=== PATIENT | male | born 1960 | race Hispanic/Latino ===

== ENCOUNTER 2017-12-13 12:53 | Inpatient (IN) | payer MEDICARE, OTHER ==
[2017-12-13 13:38] LABS: #Eosinphils 0.1 thou/uL (0.0-0.7); #Lymphocytes 1.1 thou/uL (1.20-3.40); #Monocytes 0.6 thou/uL (0.11-0.59); #Neutrophils 9.9 thou/uL (1.40-6.50); %Eosinophils 0.5 % (0.0-10.0); %Lymphocytes 9.7 % (21.0-51.0); %Monocytes 5.1 % (0.0-10.0); %Neutrophils 84.8 % (42.0-75.0); Hemoglobin 11.9 g/dL (14.0-18.0); Mean Corpuscular HGB CONC 30.7 g/dL (32.0-36.0); Mean Corpuscular Hemoglobin 20.7 pg (27.0-31.0); Mean Corpuscular Volume 67.3 fL (78.0-98.0); Mean Platelet Volume 7.8 fL (7.4-10.4); Platelet Count 490 thou/uL (130-400); RBC Distribution Width 15.8 % (11.5-14.5); Red Blood Cell (RBC) Count 5.78 mill/uL (4.70-6.10); White Blood Cell (WBC) Count 11.7 thou/uL (4.8-10.8)
[2017-12-13 13:59] LABS: Bilirubin Negative (Negative); Blood, Urine Negative (Negative); Clarity CLEAR (Clear); Glucose, Urine (Dipstick) Negative (Negative); Leukocyte Negative (Negative); Nitrite Negative (Negative); Protein, Urine (Dipstick) 30 mg/dL (Neg-Trace); Specific Gravity, Urine 1.024 (1.002-1.036); Urobilinogen 0.2 mg/dL (0.2-1.0); pH, Urine 6.5 (5.0-9.0)
[2017-12-13 14:02] LABS: ALT (SGPT) 13 U/L (8-55); AST (SGOT) 12 U/L (5-34); Albumin 3.3 g/dL (3.5-5.0); Alkaline Phosphatase 110 U/L (40-150); Anion Gap 17 mmol/L (10-20); BUN (Urea Nitrogen) 16 mg/dL (8.4-25.7); Bilirubin, Total 0.4 mg/dL (0.2-1.2); Calc. Creatinine Clearance 0 mL/min (70-130); Calcium 9.9 mg/dL (7.8-10.44); Carbon Dioxide 17 mmol/L (22-29); Chloride 103 mmol/L (98-107); Estimated GFR-MDRD Greater than 90; Globulin 4.8 g/dL (2.4-3.5); Glucose 100 mg/dL (70-105); Potassium 4.5 mmol/L (3.5-5.1); Protein, Total 8.1 g/dL (6.0-8.3); Sodium 132 mmol/L (136-145)
[2017-12-13 14:02] LABS: Bacteria/HPF None Seen HPF (None Seen); Pathc Cast-AUWi Flag 1.45 (0-2.49)
[2017-12-13 14:03] LABS: Hyaline Casts/LPF 0-3 HYALINE CAST LPF (0-3 Hyaline); Renal Epithelial None Seen HPF (0-3); Transitional Epithelial NONE SEEN HPF (0-3)
[2017-12-13 14:05] LABS: Hypochromia SLIGHT = 6-15 cells (100X) (0-5/hpf); MDiff Complete? YES; Microcytosis MODERATE=15-30 cells (100X) (0-5/hpf); PLT Morphology Comment Appears Increased
[2017-12-13] MEDS ORDERED: Lidocaine 1% w/Epinephrine 1:100K 20 ML VIAL ONE (14:15)
--- NOTE | 2017-12-13 14:16 | RAD ---
SINGLE VIEW OF THE CHEST: Comparison: None. History: Decreased lung sounds, cough, back pain. Shortness of breath. FINDINGS: Single view of the chest shows a normal sized cardiomediastinal silhouette. There is a large left pne umothorax with shift of the mediastinum to the right. There may be a small left pleural effusion. Inc reased interstitial markings are seen in the right lung. IMPRESSION: Large left pneumothorax with shift of the mediastinum. Dr. David notified of the findings at 2:07 p. m. on 12-13-17. POS: [facility]
[2017-12-13] MEDS ORDERED: Ketorolac Tromethamine 30 MG/ML VIAL ONE (14:36)
--- NOTE | 2017-12-13 14:57 | RAD ---
SINGLE VIEW OF THE CHEST: Comparison: 12-13-17 History: Pneumothorax. FINDINGS: Single view of the chest shows normal sized cardiomediastinal silhouette. There is a left sided kostas ter projecting over the chest with evacuation of the majority of the left pneumothorax. There is stil l a tiny apical residual pneumothorax. Increased interstitial lung markings are seen bilaterally. The re appears to be a small left pleural effusion. IMPRESSION: Evacuation of left pneumothorax with small residual left apical pneumothorax. POS: [facility]
--- NOTE | 2017-12-13 16:13 | PDOC.FPRHP ---
- History of Present Illness Chief Complaint: SOB History of Present Illness: 57 y/o M with PMHx of spinal cord injury with residual upper and lower extremity motor weakness bilaterally and HLD who presented to the ED complaining of SOB that had been going on for 4-5 days. He said it has been getting progressively worse. He also reports a dry cough and sweating that has been going on. He reports swelling in his bilateral legs that has been going on for the same amount of time. He reports some increased SOB when he lies flat. He denies any fevers, chest pain, trauma to his chest. He denies any lung disease or smoking history. He walks with a walker sometimes, but mostly is in a wheelchair. He requires assistance with ADL's and his takes care of him at home. ED Course: The patient was evaluated in the ED by Dr. David and Nain HERNANDEZ and was found to have a large left sided pneumothorax, and a chest tube was placed on the anterior L 2nd intercostal space. He was given 15mg toradol IVP. - History PMHx: 1. spinal cord lesion vs injury causing motor weakness in all extremities 2. HLD PSHx: None FHx: None Social: Denies tobacco, EtOH, or drug use. Lives at home with his . Is wheelchair bound/able to walk with a walker some. PCP: Dr. Quiles - Review of Systems General: denies: fever/chills, fatigue Eyes: denies: eye pain, vision changes ENT: denies: nasal congestion, rhinorrhea Respiratory: reports: cough, shortness of breath Cardiovascular: reports: edema. denies: chest pain Gastrointestinal: denies: nausea, vomiting, diarrhea, abdominal pain Genitourinary: denies: dysuria, polyuria Skin: denies: rashes, lesions Musculoskeletal: reports: pain (back pain). denies: tenderness Neurological: reports: weakness (chronic). denies: numbness - Vital signs BP: 103/57 HR: 68 RR: 31 Tmax: 98.6 Pox: 100% on RA Wt: 61.2kg - Physical Exam Constitutional: NAD, awake, alert and oriented HEENT: normocephalic and atraumatic, PERRLA, EOMI, normal nasal mucosa, MMM, oropharynx clear Neck: supple, trachea midline, no LAD -Heart: RRR, no murmurs/gallops/rubs. 1+ pitting edema in bilateral feet/ankles -Lungs: CTAB, slightly decreased breath sounds on the L side, no rales or wheezes Abdomen: soft, non-tender, bowel sounds present, no masses/distention -Musculoskeletal: normal structure, decreased tone Skin: no rash/lesions, good turgor, capillary refill <2 seconds Heme/Lymphatic: no unusual bruising or bleeding, no LAD Psychiatric: normal mood and affect, good judgment and insight, intact recent and remote memory FMR H&P: Results - Labs Result Diagrams: 12/13/17 13:25 12/13/17 13:25 Lab results: WBC 11.7 thou/uL (4.8-10.8) H 12/13/17 13:25 Hgb 11.9 g/dL (14.0-18.0) L 12/13/17 13:25 Hct 38.9 % (42.0-52.0) L 12/13/17 13:25 MCV 67.3 fL (78.0-98.0) L 12/13/17 13:25 Plt Count 490 thou/uL (130-400) H 12/13/17 13:25 Neutrophils % 84.8 % (42.0-75.0) H 12/13/17 13:25 Sodium 132 mmol/L (136-145) L 12/13/17 13:25 Potassium 4.5 mmol/L (3.5-5.1) 12/13/17 13:25 Chloride 103 mmol/L (98-107) 12/13/17 13:25 Carbon Dioxide 17 mmol/L (22-29) L 12/13/17 13:25 BUN 16 mg/dL (8.4-25.7) 12/13/17 13:25 Creatinine 0.75 mg/dL (0.6-1.3) 12/13/17 13:25 Glucose 100 mg/dL (70-105) 12/13/17 13:25 Lactic Acid 1.5 mmol/L (0.5-2.2) 12/13/17 13:25 Calcium 9.9 mg/dL (7.8-10.44) 12/13/17 13:25 Total Bilirubin 0.4 mg/dL (0.2-1.2) 12/13/17 13:25 AST 12 U/L (5-34) 12/13/17 13:25 ALT 13 U/L (8-55) 12/13/17 13:25 Alkaline Phosphatase 110 U/L (40-150) 12/13/17 13:25 Serum Total Protein 8.1 g/dL (6.0-8.3) 12/13/17 13:25 Albumin 3.3 g/dL (3.5-5.0) L 12/13/17 13:25 Urine Ketones 40 mg/dL (Negative) H 12/13/17 13:41 Urine Blood Negative (Negative) 12/13/17 13:41 Urine Nitrite Negative (Negative) 12/13/17 13:41 Ur Leukocyte Esterase Negative (Negative) 12/13/17 13:41 Urine RBC 4-6 HPF (0-3) 12/13/17 13:41 Urine WBC 4-6 HPF (0-3) H 12/13/17 13:41 Ur Squamous Epith Cells 4-6 HPF (0-3) H 12/13/17 13:41 Urine Bacteria None Seen HPF (None Seen) 12/13/17 13:41 - EKG Interpretation EKG: rate 96, NSR, no ST/T wave changes - Radiology Interpretation Chest x-ray Status: image reviewed by me, report reviewed by me Additional comment: Large left sided pneumothorax on initial CXR, residual apical pneumothorax on repeat FMR H&P: A/P - Problem List (1) Primary spontaneous pneumothorax Current Visit: Yes Status: Acute Code(s): J93.11 - PRIMARY SPONTANEOUS PNEUMOTHORAX (2) Pedal edema Current Visit: Yes Status: Acute Code(s): R60.0 - LOCALIZED EDEMA (3) HLD (hyperlipidemia) Current Visit: Yes Status: Acute Code(s): E78.5 - HYPERLIPIDEMIA, UNSPECIFIED Qualifiers: Hyperlipidemia type: unspecified Qualified Code(s): E78.5 - Hyperlipidemia , unspecified (4) Spinal cord compression Current Visit: Yes Status: Acute Code(s): G95.20 - UNSPECIFIED CORD COMPRESSION - Plan Primary Spontaneous L Pneumothorax s/p chest tube placement. No known structural lung disease. No h/o tobacco use, trauma, injury to the lungs. Repeat CXR after chest tube placement showed small residual apical pneumothorax -Consulted Dr. Arriola with pulm for assistance with chest tube management, appreciate recs -Repeat CXR in AM -Tramadol prn and tylenol for pain control Lower Extremity Edema Pt has new onset BLE edema with unknown cause. No h/o heart disease or heart failure. Renal function WNL. -Check BNP, if abnormal then will get an echo. Hyperlipidema -continue fish oil -check FLP Spinal Cord Compression Pt reports a h/o some form of spinal cord compression vs injury 8 years ago that has led to him not being able to move his arms or legs much at all. He still has full sensation. -consult PT -Fall precautions VTE ppx: Lovenox Code status: Full Disposition/LOS: Admit to medical, length of stay likely 2 days Attending Addendum - Attending Addendum Date/Time: 12/13/172202 I personally evaluated the patient and discussed the management with Dr. Philip. I agree with the History, Examination, Assessment and Plan documented above with any addition or exceptions noted below- briefly this is a 57 year old gentleman with h/o spinal cord injury with resultant upper and lower extremity weakness who presented with progressive SOB over the last 5 days. Has had associated cough productive of clear sputum, diaphoresis, and generalized weakness. Denies any recent falls. Typically is ambulating with walker. In ER patient found to have large left sided pneumothorax. Patient hD needle decolmpression with placement of small caliber chest tube attached to a Heimlich valve. Patient reports he feels better since placement of tube. PMH/PSH /Meds/All reviewed and agree with residents documentation. Afebrile VSS Exam repeated by me and agree with residents findings. A/p: 1) Spontaneous left sided pneumothorax- continue chest tube. Pulmonary consulted (Dr. Mills) and appreciate assistance. 2) H/o spinal cord injury- continue to monitor.
[2017-12-13] MEDS ORDERED: Ondansetron ODT 4 MG TAB SL PRN (16:59)
[2017-12-13] MEDS ORDERED: Acetaminophen 325 MG TAB PO PRN (16:59)
[2017-12-13] MEDS ORDERED: Ondansetron HCl/PF 4 MG/2 ML Vial IVP PRN (16:59)
[2017-12-13 17:10] VITALS: BMI 22.1
[2017-12-13] MEDS: Acetaminophen 325 MG TAB PO SCH ×2 (18:09→21:42)
[2017-12-14] MEDS: Acetaminophen 325 MG TAB PO SCH ×6 (01:50→21:05)
[2017-12-14 04:14] LABS: #Eosinphils 0.2 thou/uL (0.0-0.7); #Lymphocytes 1.5 thou/uL (1.20-3.40); #Neutrophils 9.8 thou/uL (1.40-6.50); %Basophils 0.2 % (0.0-1.0); %Eosinophils 1.3 % (0.0-10.0); %Lymphocytes 12.1 % (21.0-51.0); %Monocytes 7.8 % (0.0-10.0); %Neutrophils 78.6 % (42.0-75.0); Hemoglobin 10.6 g/dL (14.0-18.0); Mean Corpuscular HGB CONC 32.2 g/dL (32.0-36.0); Mean Corpuscular Hemoglobin 21.4 pg (27.0-31.0); Mean Corpuscular Volume 66.6 fL (78.0-98.0); Mean Platelet Volume 8.1 fL (7.4-10.4); Platelet Count 549 thou/uL (130-400); RBC Distribution Width 15.5 % (11.5-14.5); Red Blood Cell (RBC) Count 4.94 mill/uL (4.70-6.10); White Blood Cell (WBC) Count 12.5 thou/uL (4.8-10.8)
[2017-12-14 04:27] LABS: Anion Gap 13 mmol/L (10-20); BUN (Urea Nitrogen) 19 mg/dL (8.4-25.7); Calc. Creatinine Clearance 81 mL/min (70-130); Calcium 8.9 mg/dL (7.8-10.44); Carbon Dioxide 23 mmol/L (22-29); Cardiac Risk 5.6 (Less than 4.5); Chloride 104 mmol/L (98-107); Cholesterol 84 mg/dl (< 200 Desired); Estimated GFR-MDRD Greater than 90; Glucose 94 mg/dL (70-105); HDL Cholesterol 15 mg/dL (>60 Neg Risk); LDL Cholesterol, Calculated 51 mg/dL; Potassium 4.8 mmol/L (3.5-5.1); Sodium 135 mmol/L (136-145); Triglycerides 92 mg/dL (Less than 150)
[2017-12-14] MEDS: Enoxaparin Sodium 40 MG/0.4 ML SYRINGE SC SCH (08:25)
[2017-12-14] MEDS: Fish Oil 1,000 MG CAP PO SCH (08:25)
--- NOTE | 2017-12-14 09:50 | RAD ---
SINGLE VIEW CHEST: HISTORY: Pneumothorax. COMPARISON: 12/13/2017 FINDINGS: A single view of the chest show a catheter projecting over the left chest. There is enlargement of t he pre-existing pneumothorax with a moderate sized pneumothorax seen on today's examination. There m ay be a small left pleural effusion. IMPRESSION: Moderate left pneumothorax. POS: [facility]
--- NOTE | 2017-12-14 11:46 | CT ---
CHEST CT SCAN WITHOUT IV CONTRAST: HISTORY: A 57-year-old male with a history of pneumothorax and underlying lung disease. FINDINGS: There is a moderate to large residual left-sided pneumothorax with mild tension and mild shift of the mediastinum to the right. A small caliber left-sided chest tube is noted. There is a moderate amou nt of left-sided subcutaneous emphysema. There is some extensive bilateral upper lung disease with s ome volume loss and bilateral cavities, measuring approximately 4.1 x 4.6 cm on the right side, with a small air-fluid level within it, with a smaller cavity in the left upper lobe. There are some bailey tional much smaller cavities in the right lung, including the right upper lobe and the superior segme nt of the right lower lobe. There is evidence for right upper lobe bronchiectasis. There is some bi lateral pleural thickening, worse on the left side, with what does appear to be some associated pleur al fluid, with an air-fluid level in the left lower pleural space. There is more diffuse increased d ensity to the left chest than seen on the prior 12/13/2017 chest x-ray, which may represent some degr ee of re-expansion edema. This extensive bilateral abnormal lung disease is nonspecific but, given t he upper lobe volume loss and cavities with air-fluid level within the right upper lobe cavity, the p ossibility of reactivation TB must be considered. IMPRESSION: 1. Moderate to large left-sided pneumothorax with some shift of the heart and mediastinum to the rig ht. 2. Very extensive bilateral lung disease, including upper lobe volume loss and bilateral upper lobe cavities, as well as some smaller cavities in the right lower lobe with an air-fluid level in the lar ge right upper lobe cavity. Reactivation tuberculosis cannot be excluded and should certainly be alanna luated with clinical and laboratory findings. Overall increased density in the left lung when compar ed to the 12/13/2017 study, possibly representing some reexpansion edema, considering the severe oli ier left lung atelectasis. 3. Small left pleural effusion. 4. Right upper lobe bronchiectasis. 5. Extensive interstitial and alveolar nodular parenchymal changes around both lungs. Certainly celine e type of extensive bilateral pneumonia is considered. Small underlying pulmonary metastasis cannot be excluded as well. 6. A 9.1 cm in diameter right upper pole renal cyst. The findings were discussed with Dr. Arriola at approximately 10:11 a.m. CODE CR POS: [facility]
--- NOTE | 2017-12-14 11:50 | PDOC.FM ---
- Subjective Subjective: Patient doing fairly well this AM. No significant overnight events. Patient states he is not in pain and does not feel short of breath. He denies any cough or fever. Patient denies chest pain, N/V/D. - Objective MAR Reviewed: Yes Vital Signs & Weight: Vital Signs (12 hours) Temp Pulse Resp BP BP Pulse Ox 12/14/17 08:00 98.4 F 62 16 100 12/14/17 07:35 98.4 F 62 16 103/67 100 12/14/17 04:30 97.6 F 70 18 110/70 100 12/14/17 04:00 97.6 F 66 18 110/70 100 12/14/17 01:07 97.6 F 63 16 99/64 100 Weight Weight 56.699 kg I&O: 12/13/17 12/14/17 12/15/17 06:59 06:59 06:59 Intake Total 400 Balance 400 Result Diagrams: 12/14/17 03:39 12/14/17 03:39 EKG Reviewed by me: Yes Radiology Reviewed by me: Yes <Samra Shields - Last Filed: 12/14/17 12:11> - Objective Vital Signs & Weight: Vital Signs (12 hours) Temp Pulse Resp BP BP Pulse Ox 12/14/17 12:00 100 12/14/17 11:49 97.7 F 69 16 97/65 100 12/14/17 08:00 98.4 F 62 16 100 12/14/17 07:35 98.4 F 62 16 103/67 100 12/14/17 04:30 97.6 F 70 18 110/70 100 12/14/17 04:00 97.6 F 66 18 110/70 100 12/14/17 01:07 97.6 F 63 16 99/64 100 Weight Weight 56.699 kg I&O: 12/13/17 12/14/17 12/15/17 06:59 06:59 06:59 Intake Total 400 Balance 400 Result Diagrams: 12/14/17 03:39 12/14/17 03:39 <Rafael Haynes - Last Filed: 12/14/17 12:39> Phys Exam - Physical Examination Constitutional: NAD HEENT: moist MMs, sclera anicteric Neck: supple No detectable lung sounds on left anterior and posterior chest Cardiovascular: RRR, no significant murmur Gastrointestinal: soft, non-tender, positive bowel sounds Musculoskeletal: no edema, pulses present crepitus palpable over entire left anterior chest chest tube hooked to water seal Psychiatric: A&O x 3 Skin: no rash, cap refill <2 seconds <Smara Shields - Last Filed: 12/14/17 12:11> Dx/Plan (1) Primary spontaneous pneumothorax Code(s): J93.11 - PRIMARY SPONTANEOUS PNEUMOTHORAX Status: Acute (2) Pedal edema Code(s): R60.0 - LOCALIZED EDEMA Status: Acute (3) HLD (hyperlipidemia) Code(s): E78.5 - HYPERLIPIDEMIA, UNSPECIFIED Status: Chronic Qualifiers: Hyperlipidemia type: unspecified Qualified Code(s): E78.5 - Hyperlipidemia , unspecified (4) Spinal cord compression Code(s): G95.20 - UNSPECIFIED CORD COMPRESSION Status: Chronic - Plan Plan: Primary vs. secondary Spontaneous L Pneumothorax - s/p chest tube placement. No known structural lung disease, however chest xray showed worsening pneumothorax and increased interstitial markings. A CT was performed which showed moderate left sided pneumothorax with shift of heart and mediastinum to right, extensive bilateral lung disease with upper and lower lobe cavities. 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 Right upper lobe bronchiectasis. Interstitial and alveolar parynchymal changes. - Concern for TB. Culture and smear AFB pending - No h/o tobacco use, trauma, injury to the lungs. -Consulted Dr. Arriola with pulm for assistance with chest tube management, appreciate recs -Tramadol prn and tylenol for pain control - TB precautions - Blood cultures pending - May be secondary pneumothorax based on findings on CT - Chest tube water sealed. Lower Extremity Edema - Pt has new onset BLE edema with unknown cause. No h/o heart disease or heart failure - Renal function WNL. - BNP wnl - Improved today Hyperlipidema -continue fish oil -check FLP Spinal Cord Compression - Pt reports a h/o some form of spinal cord compression that has led to him not being able to move his arms or legs much at all. He still has full sensation. - PT consulted - Fall precautions VTE ppx: Lovenox Code status: Full Disposition/LOS: Stable. Continue with chest tube at suction. Workup for underlying lung disease and TB. <Samra Shields - Last Filed: 12/14/17 12:11> Attending Addendum - Attending Addendum Date/Time: 12/14/17 1237 I personally evaluated the patient and discussed the management with Dr. Shields. I agree with and repeated the History, Examination, Assessment and Plan documented above with any addition or exceptions noted below. Pt asymptomatic besides some chest wall discomfort currently. Stable weakness apparently per patient. 4/5 BUE, 4+ BLE. Hyperreflexic BLE. No clonus. Diffuse crepitus on left side. CT to WS. Acute resp failure 2/2 PTX with suspected underlying lung dz r/o TB. Await studies. Would send QG if not already done. <Rafael Haynes - Last Filed: 12/14/17 12:39>
--- NOTE | 2017-12-14 22:33 | CON ---
DATE OF CONSULTATION: 12/14/2017 SERVICE: Pulmonary Medicine. REASON FOR CONSULTATION: Pneumothorax. HISTORY OF PRESENT ILLNESS: The patient is a 57-year-old male with past medical history significant for nothing but some paraplegia. He does not have any known medical or lung problems. That being said, he was in his usual state of health when he started having onset of shortness of breath, particularly when lying flat. He has been coughing and having some sweats as well. He indicates having little bit of weight loss. Otherwise, he presented to the emergency department. Chest x-ray revealed a pneumothorax. A needle aspiration was performed. He had recurrence of the pneumothorax and a small bore chest tube was subsequently placed. This morning, there was a repeat chest x-ray. I was consulted to manage the pneumothorax which persisted. He was hooked up to a Heimlich valve without suction. He denies any current fevers or chills. He is not currently short of breath. There was no significant interval history, otherwise. PAST MEDICAL HISTORY: 1. Quadriplegia secondary to remote spinal cord injury. 2. Dyslipidemia. PAST SURGICAL HISTORY: None. FAMILY HISTORY: Noncontributory. SOCIAL HISTORY: He denies any tobacco, alcohol or illicit drug use. Lives at home with his . ALLERGIES: NONSTEROIDAL ANTI-INFLAMMATORY DRUGS. MEDICATIONS: List of his inpatient medications were reviewed. No specific updates were made at this time. REVIEW OF SYSTEMS: General, head, ears, eyes, nose, throat, cardiovascular, respiratory, GI, , musculoskeletal, neurologic and skin is negative except as mentioned in the HPI. PHYSICAL EXAMINATION: VITAL SIGNS: Afebrile currently, pulse 69, blood pressure 97/65, respirations 16, saturation 100% on room air. GENERAL: The patient is awake and alert, in no apparent distress. LUNGS: Decent air entry. Rhonchi are present. There is no prolonged expiratory phase. He has a fairly weak cough. HEART: Normal rate, regular. ABDOMEN: Soft, nontender, nondistended. Bowel sounds are positive. MUSCULOSKELETAL: No cyanosis or clubbing. There is no pitting in the bilateral lower extremities. NEUROLOGIC: The patient is unable to move his arms or legs. He can lift up his head. Cranial nerves II-XII are grossly intact. LABORATORY DATA: WBC 12.5, hemoglobin 10.6, platelets 549,000. Basic metabolic profile and liver function studies are essentially unremarkable. Lactate was normal. BNP is also normal. Urinalysis is negative. Blood culture and urine culture are both negative to date. IMAGIN. Chest x-ray demonstrates a left-sided second intercostal midclavicular thoracostomy tube in decent position. That being said, there is persistence of pneumothorax. 2. CT of the chest demonstrates the pneumothorax which we knew about. That being said, there is extensive bilateral lung disease including upper lobe cavitary lesions with multiple sizes as well as air fluid levels. Reexpansion edema is likely also present. Small left pleural effusion is present. Right upper lobe bronchiectasis is identified. Extensive interstitial and alveolar nodular parenchymal changes are throughout both lungs. Large right upper pole renal cyst. ASSESSMENT: 1. Spontaneous secondary pneumothorax. 2. Pulmonary infiltrates, characterized by tree-in-bud opacifications, cavitary lesions, and air fluid levels, worse in the biapical distribution. DISCUSSION AND PLAN: We will proceed with putting the patient in respiratory isolation. We will try to generate a sputum. If we can generate him, bronchoscopy will be performed. We need to hold off on giving him any antibiotics until we get a good deep sample out of his lung. Pulmonary Critical Care will continue to follow along. Hopefully, we will get some answer out of an AFB smear, but obviously if this is negative, we will need to collect a small sample. 70 minutes have been devoted to this patient in various activities. I personally reviewed all imaging studies and laboratory data noted within this document. For fifty percent of this time, I was interacting with the patient at the bedside or coordinating care with the care team. For the remainder of the time I was immediately available to the patient in the hospital unit. JULIUS
[2017-12-15] MEDS: Acetaminophen 325 MG TAB PO SCH ×6 (00:54→22:03)
[2017-12-15 04:35] LABS: Anion Gap 13 mmol/L (10-20); BUN (Urea Nitrogen) 15 mg/dL (8.4-25.7); Calc. Creatinine Clearance 93 mL/min (70-130); Calcium 8.6 mg/dL (7.8-10.44); Carbon Dioxide 19 mmol/L (22-29); Chloride 103 mmol/L (98-107); Estimated GFR-MDRD Greater than 90; Glucose 89 mg/dL (70-105); Potassium 4.5 mmol/L (3.5-5.1); Sodium 130 mmol/L (136-145)
[2017-12-15 04:50] LABS: Band 32 % (5-11); Eosinophils 1 % (0-10); Hemoglobin 10.9 g/dL (14.0-18.0); Lymphocytes 12 % (21-51); MDiff Complete? YES; Mean Corpuscular HGB CONC 32.6 g/dL (32.0-36.0); Mean Corpuscular Hemoglobin 21.6 pg (27.0-31.0); Mean Corpuscular Volume 66.3 fL (78.0-98.0); Mean Platelet Volume 8.1 fL (7.4-10.4); Monocytes 7 % (0-10); Neutrophil 48 % (42-75); PLT Morphology Comment Appears Increased; Platelet Count 566 thou/uL (130-400); RBC Distribution Width 15.8 % (11.5-14.5); Red Blood Cell (RBC) Count 5.04 mill/uL (4.70-6.10); White Blood Cell (WBC) Count 17.1 thou/uL (4.8-10.8)
[2017-12-15] MEDS: Enoxaparin Sodium 40 MG/0.4 ML SYRINGE SC SCH (07:55)
[2017-12-15] MEDS: Fish Oil 1,000 MG CAP PO SCH (07:55)
--- NOTE | 2017-12-15 09:43 | RAD ---
CHEST UPRIGHT PORTABLE: HISTORY: A 57-year-old male with a history of followup pneumothorax. There is again noted to be at least a moderate-sized left pneumothorax. Small caliber left chest tub e is noted in place. There is some subcutaneous emphysema on the left. There is possible mild shift of midline to the right. Extensive bilateral upper lung zone pulmonary parenchymal changes and cavi ties, larger on the right side with associated volume loss. Scattered interstitial and alveolar opac ity changes in the left lung. The pneumothorax is slightly smaller than on the prior most recent 12/14 study. IMPRESSION: Slightly improved left-sided pneumothorax. Extensive bilateral interstitial and alveolar nodular pul monary parenchymal changes throughout both lungs with some bilateral volume loss and bilateral upper lobe cavities. POS: [facility]
[2017-12-15] MEDS ORDERED: Sodium Chloride 3% (15 ML) NEB NEB SCH (11:45)
--- NOTE | 2017-12-15 13:05 | PDOC.FM ---
- Subjective Subjective: Patient doing well this AM. No significant overnight events. Shortness of breath is improved. - Objective MAR Reviewed: Yes Vital Signs & Weight: Vital Signs (12 hours) Temp Pulse Resp BP Pulse Ox 12/15/17 12:55 77 16 100 12/15/17 08:07 98.8 F 70 18 95/62 100 12/15/17 08:00 98.8 F 70 18 100 Weight Admit Weight 56.699 kg Weight 56.699 kg I&O: 12/14/17 12/15/17 12/16/17 06:59 06:59 06:59 Intake Total 400 1700 Output Total 720 Balance 400 980 Result Diagrams: 12/15/17 04:02 12/15/17 04:02 EKG Reviewed by me: Yes Radiology Reviewed by me: Yes <Samra Shields - Last Filed: 12/15/17 13:02> - Objective Vital Signs & Weight: Vital Signs (12 hours) Temp Pulse Resp BP Pulse Ox 12/15/17 12:55 77 16 100 12/15/17 08:07 98.8 F 70 18 95/62 100 12/15/17 08:00 98.8 F 70 18 100 Weight Admit Weight 56.699 kg Weight 56.699 kg I&O: 12/14/17 12/15/17 12/16/17 06:59 06:59 06:59 Intake Total 400 1700 360 Output Total 720 Balance 400 980 360 Result Diagrams: 12/15/17 04:02 12/15/17 04:02 <Rafael Haynes - Last Filed: 12/15/17 16:19> Phys Exam - Physical Examination Constitutional: NAD HEENT: moist MMs Neck: supple Decreased breath sounds on left Chest tube in place of left anterior chest Cardiovascular: RRR Gastrointestinal: soft, positive bowel sounds Musculoskeletal: no edema Crepitus over left anterior chest Neurological: non-focal Psychiatric: A&O x 3 Skin: cap refill <2 seconds <Samra Shields - Last Filed: 12/15/17 13:02> Dx/Plan (1) Primary spontaneous pneumothorax Code(s): J93.11 - PRIMARY SPONTANEOUS PNEUMOTHORAX Status: Acute (2) Pedal edema Code(s): R60.0 - LOCALIZED EDEMA Status: Acute (3) HLD (hyperlipidemia) Code(s): E78.5 - HYPERLIPIDEMIA, UNSPECIFIED Status: Chronic Qualifiers: Hyperlipidemia type: unspecified Qualified Code(s): E78.5 - Hyperlipidemia , unspecified (4) Spinal cord compression Code(s): G95.20 - UNSPECIFIED CORD COMPRESSION Status: Chronic - Plan Plan: Secondary Spontaneous L Pneumothorax - s/p chest tube placement - Possible reactivation TB. Right upper lobe bronchiectasis. Interstitial and alveolar parynchymal changes. - Concern for TB. Culture and smear AFB pending, Quant gold pending - No h/o tobacco use, trauma, injury to the lungs. - Pulmonology consulted; appreciate recs - Tramadol prn and tylenol for pain control - TB precautions - Blood cultures pending - Chest tube to suction - Plan for bronch and chest tube (larger) placement tomorrow Lower Extremity Edema - Pt has new onset BLE edema with unknown cause. No h/o heart disease or heart failure - Renal function WNL. - BNP wnl - Improved today Hyperlipidema - Continue fish oil Spinal Cord Compression - Pt reports a h/o some form of spinal cord compression that has led to him not being able to move his arms or legs much at all. He still has full sensation. - PT consulted - Fall precautions VTE ppx: Lovenox Code status: Full Disposition/LOS: Stable. Continue with chest tube at suction. Workup for underlying lung disease and TB continued. Plan for bronchsocopy tomorrow. <Samra Shields - Last Filed: 12/15/17 13:02> Attending Addendum - Attending Addendum Date/Time: 12/15/17 7630 I personally evaluated the patient and discussed the management with Dr. Shields. I agree with and repeated the History, Examination, Assessment and Plan documented above with any addition or exceptions noted below. Pt felt febrile and had chills overnight. No cough, sob. No cp. Likely bronchoscopy and conversion to formal tube thoracostomy tomorrow. <Rafael Haynes - Last Filed: 12/15/17 16:19>
--- NOTE | 2017-12-15 16:31 | PRG ---
DATE OF SERVICE: 12/15/2017 SERVICE: Pulmonary Medicine. INTERVAL HISTORY: The patient did not have a sputum sample collected overnight. We are going to mot ivate respiratory therapy crude in order to get a sample. He currently denies any fevers or chills. He says he is not coughing or bringing up any sputum very often. That being said, he has been gener ating some from time to time. Otherwise, there has been no interval change to his condition. PHYSICAL EXAMINATION: VITAL SIGNS: Afebrile, pulse 70, blood pressure 95/62, respirations 18, saturation 100% on room air. GENERAL: The patient is awake, alert, no apparent distress. LUNGS: Decent air entry. There is no prolonged expiratory phase or wheezing present. HEART: Normal rate, regular. ABDOMEN: Soft, nontender, nondistended. Bowel sounds are positive. MUSCULOSKELETAL: No cyanosis or clubbing. There is no pitting in the bilateral lower extremities. NEUROLOGIC: Grossly nonfocal. IMAGING DATA: Chest x-ray demonstrates minimal improvement in the left-sided pneumothorax. There is pleural parenchymal disease located throughout bilateral lung pang, but worse in the apical region s. LABORATORY DATA: WBC 17.1 and increasing, hemoglobin 10.9, platelets 566,000. Band count is at 32%. Basic metabolic profile is essentially unremarkable. Liver function studies are unremarkable. Uri nalysis is negative. AFB smear in the pleural broth is negative. Body fluid culture is also negativ e to date. No organisms were identified and very few white blood cells were noted. Urine culture an d blood culture remain negative. ASSESSMENT: 1. Spontaneous secondary pneumothorax. 2. Pulmonary infiltrates, characterized by tree-in-bud opacifications, cavitary lesions, and air flu id levels, worse in the biapical distribution. DISCUSSION AND PLAN: I just talked to respiratory therapy and they were able to generate a good samp le with a green clot. Hopefully, this will give us our answer. If it does not, we will move forward with a bronchoscopy in 24-48 hours. We will try to hold off on antibiotics, but if he develops incr easing signs of infection, we may need to empirically start something. Pulmonary or Critical Care wi ll continue to follow along.
[2017-12-16] MEDS: Acetaminophen 325 MG TAB PO SCH ×6 (01:55→20:59)
[2017-12-16 04:23] LABS: #Eosinphils 0.1 thou/uL (0.0-0.7); #Lymphocytes 1.3 thou/uL (1.20-3.40); #Monocytes 1.1 thou/uL (0.11-0.59); #Neutrophils 11.4 thou/uL (1.40-6.50); %Eosinophils 0.5 % (0.0-10.0); %Lymphocytes 9.5 % (21.0-51.0); %Monocytes 7.7 % (0.0-10.0); %Neutrophils 82.3 % (42.0-75.0); Hemoglobin 10.7 g/dL (14.0-18.0); Mean Corpuscular HGB CONC 32.2 g/dL (32.0-36.0); Mean Corpuscular Hemoglobin 21.3 pg (27.0-31.0); Mean Corpuscular Volume 66.2 fL (78.0-98.0); Platelet Count 585 thou/uL (130-400); RBC Distribution Width 15.7 % (11.5-14.5); Red Blood Cell (RBC) Count 5.03 mill/uL (4.70-6.10); White Blood Cell (WBC) Count 13.8 thou/uL (4.8-10.8)
[2017-12-16 04:33] LABS: Anion Gap 16 mmol/L (10-20); BUN (Urea Nitrogen) 21 mg/dL (8.4-25.7); Calc. Creatinine Clearance 84 mL/min (70-130); Calcium 8.6 mg/dL (7.8-10.44); Carbon Dioxide 18 mmol/L (22-29); Chloride 101 mmol/L (98-107); Estimated GFR-MDRD Greater than 90; Glucose 95 mg/dL (70-105); Potassium 4.5 mmol/L (3.5-5.1); Sodium 130 mmol/L (136-145)
[2017-12-16 04:54] LABS: HIV (1/2) Antibody/Antigen Non-Reactive (NonReactive); HIV 1/2 INDEX 0.21 S/CO (<1.00)
--- NOTE | 2017-12-16 06:35 | PDOC.FM ---
- Subjective Subjective: Patient doing well this AM. No significant overnight events. he states he is having a minimal amount of pain in chest when taking breath. He denies N/V/D. Afebrile overnight. - Objective MAR Reviewed: Yes Vital Signs & Weight: Vital Signs (12 hours) Temp Pulse Resp BP Pulse Ox 12/16/17 06:15 62 18 100 12/15/17 20:00 98.7 F 100 20 95/64 100 Weight Admit Weight 56.699 kg Weight 56.699 kg I&O: 12/14/17 12/15/17 12/16/17 06:59 06:59 06:59 Intake Total 400 1700 600 Output Total 720 50 Balance 400 980 550 Result Diagrams: 12/16/17 03:55 12/16/17 03:55 EKG Reviewed by me: Yes Radiology Reviewed by me: Yes <Samra Shields - Last Filed: 12/16/17 08:51> - Objective Vital Signs & Weight: Vital Signs (12 hours) Temp Pulse Resp BP Pulse Ox 12/16/17 08:00 98.3 F 82 18 92/59 L 99 12/16/17 06:15 62 18 100 Weight Admit Weight 56.699 kg Weight 56.699 kg I&O: 12/15/17 12/16/17 12/17/17 06:59 06:59 06:59 Intake Total 1700 600 240 Output Total 720 50 Balance 980 550 240 Result Diagrams: 12/16/17 03:55 12/16/17 03:55 <Rafael Haynes - Last Filed: 12/16/17 12:54> Phys Exam - Physical Examination Constitutional: NAD HEENT: moist MMs Neck: supple Decreased/absent breath sounds on left chest Chest tube in place over left anterior chest Cardiovascular: RRR, no significant murmur Gastrointestinal: soft, non-tender, positive bowel sounds Musculoskeletal: no edema, pulses present Psychiatric: normal affect, A&O x 3 Skin: no rash, cap refill <2 seconds <Samra Shields - Last Filed: 12/16/17 08:51> Dx/Plan (1) Primary spontaneous pneumothorax Code(s): J93.11 - PRIMARY SPONTANEOUS PNEUMOTHORAX Status: Acute (2) Pedal edema Code(s): R60.0 - LOCALIZED EDEMA Status: Acute (3) HLD (hyperlipidemia) Code(s): E78.5 - HYPERLIPIDEMIA, UNSPECIFIED Status: Chronic Qualifiers: Hyperlipidemia type: unspecified Qualified Code(s): E78.5 - Hyperlipidemia , unspecified (4) Spinal cord compression Code(s): G95.20 - UNSPECIFIED CORD COMPRESSION Status: Chronic - Plan Plan: Secondary Spontaneous L Pneumothorax - s/p chest tube placement 12/13 (turkel tube) - 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 Right upper lobe bronchiectasis. Interstitial and alveolar parynchymal changes. - Concern for TB. Culture and smear AFB pending, Quant gold pending - No h/o tobacco use, trauma, injury to the lungs. - Pulmonology consulted; appreciate recs - Tramadol prn and tylenol for pain control - TB precautions - Blood cultures pending; NGTD - Chest tube to suction --> possible chest tube replacement today per pulm - Possible bronchoscopy today - CXR today shows worsening pneumo despite chest tube in place to suction. Lower Extremity Edema, improved - Pt has new onset BLE edema with unknown cause. No h/o heart disease or heart failure - Renal function WNL. - BNP wnl Hyperlipidema - Continue fish oil Spinal Cord Compression - Pt reports a h/o some form of spinal cord compression that has led to him not being able to move his arms or legs much at all. He still has full sensation. - PT consulted - Fall precautions VTE ppx: Lovenox Code status: Full Disposition/LOS: Stable. Continue with chest tube at suction. Workup for underlying lung disease and TB continued. Plan for bronchsocopy and possible chest tube replacement per pulm. <Samra Shields - Last Filed: 12/16/17 08:51> Attending Addendum - Attending Addendum Date/Time: 12/16/17 1253 I personally evaluated the patient and discussed the management with Dr. Shields. I agree with and repeated the History, Examination, Assessment and Plan documented above with any addition or exceptions noted below. Now with + AFB. Dr. Arriola following. Appreciate recs. <Rafael Haynes - Last Filed: 12/16/17 12:54>
[2017-12-16] MEDS: Fish Oil 1,000 MG CAP PO SCH (08:04)
[2017-12-16] MEDS: Enoxaparin Sodium 40 MG/0.4 ML SYRINGE SC SCH (08:04)
--- NOTE | 2017-12-16 10:00 | RAD ---
FRONTAL VIEW CHEST: COMPARISON: Previous day. INDICATION: Pneumothorax. Fall. FINDINGS: Small-caliber pneumocatheter remains at the left chest. There has been marked enlargement of the lef t pneumothorax which is moderate in size, approximately 33% of the left hemithorax. There is promine nt soft tissue seen in the left neck and chest. Cardiac silhouette remains enlarged with vascular co ngestion. There is a presumed bullous emphysema at the right lung apex accounting for relative lucen cy and surrounding pleural-based circumferential density. Diffuse interstitial and alveolar opacitie s remain. There is probable pleural fluid component at the inferior left chest. IMPRESSION: 1. Enlarging left pneumothorax with probable hydropneumothorax component given pleural-based density at the inferior left chest. There is prominent surrounding soft tissue emphysema in the left chest and neck. 2. Evidence of edema. 3. Emphysema. Telephone call of findings placed to patient's physician, Dr. David Arriola, 0825 hours, 12/16/17. CODE CR POS: MARIAH
[2017-12-16] MEDS ORDERED: Azithromycin 250 MG TAB PO SCH (12:45)
[2017-12-16] MEDS ORDERED: Cefdinir 300 MG CAP PO SCH ×2 (12:45→21:00)
[2017-12-16] MEDS ORDERED: Ethambutol HCl 400 MG TAB PO SCH (13:00)
[2017-12-16] MEDS ORDERED: Isoniazid 100 MG TAB PO SCH (13:00)
[2017-12-16] MEDS ORDERED: Rifampin 300 MG CAP PO SCH (13:00)
--- NOTE | 2017-12-16 13:05 | PRG ---
DATE OF SERVICE: 12/16/2017 SERVICE: Pulmonary Medicine. INTERVAL HISTORY: The patient is doing fine from a respiratory standpoint. He denies any current chest pain, nausea, vomiting, fever or chills. He is breathing comfortably. Otherwise, there has been no interval change to his condition. We got one sample for AFB smear and culture. It is currently pending. The pleural fluid analysis is currently negative. He has not had any fevers overnight. He reports no overnight events. PHYSICAL EXAMINATION: VITAL SIGNS: Afebrile, pulse 82, blood pressure 92/59, respirations 18, saturation 99% on room air. GENERAL: The patient is awake, alert, no apparent distress. LUNGS: Decent air entry. Rhonchi are present. There is no prolonged expiratory phase or wheezing appreciated. HEART: Normal rate, regular. ABDOMEN: Soft, nontender, nondistended. Bowel sounds are positive. MUSCULOSKELETAL: No cyanosis or clubbing. There is no pitting in the bilateral lower extremities. NEUROLOGIC: Grossly nonfocal. LABORATORY DATA: WBC 13.8, hemoglobin 10.7, platelets 585,000. Neutrophil count is increasing to 83%. Basic metabolic profile is essentially unremarkable. HIV 1 and 2 is nonreactive. Pleural fluid analysis is negative to date. AFB sputum smear have 4+ AFB. IMAGING: There is interval increase in the size of the pneumothorax on the left. ASSESSMENT: 1. Spontaneous secondary pneumothorax. 2. Pulmonary tuberculosis with cavitary disease. DISCUSSION AND PLAN: 4 drug regimen will be initiated. ID consult was placed. No bronchoscopy is necessary since the sputum got the answer. The chest tube does not need to be replaced right now as the connection from the small bore chest tube to the tube leading to the atrium was disconnected and open to entrain air. If his lung does not come up tomorrow, CT consult for placement of larger chest tube will need to be considered. [facility]
[2017-12-17] MEDS: Acetaminophen 325 MG TAB PO SCH ×6 (00:56→21:10)
[2017-12-17 04:23] LABS: #Eosinphils 0.1 thou/uL (0.0-0.7); #Lymphocytes 1.4 thou/uL (1.20-3.40); #Monocytes 1.1 thou/uL (0.11-0.59); #Neutrophils 10.9 thou/uL (1.40-6.50); %Eosinophils 0.6 % (0.0-10.0); %Lymphocytes 10.4 % (21.0-51.0); %Monocytes 7.8 % (0.0-10.0); %Neutrophils 81.1 % (42.0-75.0); Hemoglobin 9.6 g/dL (14.0-18.0); Mean Corpuscular HGB CONC 31.7 g/dL (32.0-36.0); Mean Corpuscular Volume 66.4 fL (78.0-98.0); Platelet Count 600 thou/uL (130-400); RBC Distribution Width 15.5 % (11.5-14.5); Red Blood Cell (RBC) Count 4.56 mill/uL (4.70-6.10); White Blood Cell (WBC) Count 13.5 thou/uL (4.8-10.8)
[2017-12-17 04:37] LABS: Anion Gap 14 mmol/L (10-20); BUN (Urea Nitrogen) 33 mg/dL (8.4-25.7); Calc. Creatinine Clearance 89 mL/min (70-130); Calcium 8.5 mg/dL (7.8-10.44); Carbon Dioxide 19 mmol/L (22-29); Chloride 106 mmol/L (98-107); Estimated GFR-MDRD Greater than 90; Glucose 93 mg/dL (70-105); Potassium 4.7 mmol/L (3.5-5.1); Sodium 134 mmol/L (136-145)
[2017-12-17] MEDS: Rifampin 300 MG CAP PO SCH (08:11)
[2017-12-17] MEDS: Isoniazid 100 MG TAB PO SCH (08:11)
[2017-12-17] MEDS: Ethambutol HCl 400 MG TAB PO SCH (08:12)
[2017-12-17] MEDS: Pyrazinamide 500 MG TAB PO SCH (08:12)
[2017-12-17] MEDS: Enoxaparin Sodium 40 MG/0.4 ML SYRINGE SC SCH (08:12)
[2017-12-17] MEDS: pyridOXINE 50 MG (B6) TAB PO SCH (08:12)
[2017-12-17] MEDS: Ferrous Sulfate 325 MG TAB PO SCH ×2 (08:12→16:45)
[2017-12-17] MEDS: Fish Oil 1,000 MG CAP PO SCH (08:12)
[2017-12-17] MEDS ORDERED: Azithromycin 250 MG TAB PO SCH (09:00)
--- NOTE | 2017-12-17 11:31 | RAD ---
CHEST 1 VIEW: HISTORY: A 57-year-old male with a history of followup chest tube. FINDINGS: Again noted is a small-caliber chest tube with a persistent moderate-size left pneumothorax showing l ittle change from prior study. Bilateral extensive interstitial and alveolar nodular pulmonary paren chymal disease and bilateral upper lobe volume loss and upper lobe cavities are again noted. IMPRESSION: Stable left-sided moderate-size pneumothorax. Stable extensive bilateral pulmonary lung disease with biapical cavities. POS: IRVINGH
--- NOTE | 2017-12-17 11:47 | PRG ---
DATE OF SERVICE: 12/17/2017 SUBJECTIVE: The patient is continuing to cough. He has a persistent air leak through his chest tube . PHYSICAL EXAMINATION: VITAL SIGNS: On exam, temperature is 98.2, pulse 93, respirations 20, O2 sat 100%, blood pressure 96 /63. HEENT: Unremarkable. NECK: No JVD. LUNGS: Clear. CARDIAC: S1 and S2, regular. ABDOMEN: Soft. EXTREMITIES: Cachexia. LABORATORY DATA: White blood cell count 13.5, hematocrit 30, platelet count 600. Sodium 134, potass ium 4.7, chloride 106, CO2 of 19, BUN 33, creatinine 0.7, glucose 93. ASSESSMENT: 1. Tuberculosis. 2. Pneumothorax with bronchopleural fistula. PLAN: The patient is likely to need a larger chest tube at some point as the current one cannot keep up with the degree of air leak. He is on anti-tuberculosis medication. He will not need a bronchos copy since we now have a diagnosis.
[2017-12-17] MEDS ORDERED: Lidocaine 1% w/Epinephrine 1:100K 20 ML VIAL IJ SCH (12:00)
--- NOTE | 2017-12-17 13:01 | OP ---
PREOPERATIVE DIAGNOSIS: Left pneumothorax, status post placement of a small bore chest catheter. POSTOPERATIVE DIAGNOSIS: Left pneumothorax, status post placement of a small bore chest catheter. PROCEDURE: Placement of a left #28 chest tube. PROCEDURE IN DETAIL: After prepping and draping the left chest, a 1% lidocaine was used to infiltrat e the skin at the proposed site. Incision was made, tunnel created superiorly, chest entered, and #2 8 tube was then inserted and secured to the skin. Dressings were applied and the small bore catheter was removed from the anterior chest wall. The patient tolerated the procedure well. Chest x-ray is pending.
--- NOTE | 2017-12-17 14:59 | RAD ---
FRONTAL RADIOGRAPH CHEST: DATE: 12/17/17. TIME: 12:55 p.m. COMPARISON: 12/17/17 at 9:08 a.m. HISTORY: Evaluate left-sided pneumothorax following chest tube placement. FINDINGS: The previously noted small caliber chest tube has been removed and replaced with a larger caliber lef t-sided vertically oriented chest tube. There is a small residual pneumothorax in the supralateral a spect of the left lung apex, decreased in size when compared to the study performed earlier on 12/17/17 . There is subcutaneous gas overlying the left shoulder and lateral left chest wall. There are coarse increased linear densities throughout bilateral upper lobes as well as within the mi d left lung in the left lung base, stable and nonspecific. Osseous structures are grossly unremarkable. IMPRESSION: Interval placement of a large-caliber left-sided chest tube with interval decrease in size of left pn eumothorax. Small left pneumothorax persists in the apex. Interstitial and alveolar opacity noted a s detailed above. POS: MARIAH
--- NOTE | 2017-12-17 19:14 | PDOC.FM ---
- Subjective Subjective: Pt. states he did well overnight. He reports some pain with deep breaths but denies SOB, CP, or abdominal pain. Afebrile overnight. - Objective MAR Reviewed: Yes Vital Signs & Weight: Vital Signs (12 hours) Temp Pulse Resp BP Pulse Ox 12/17/17 16:53 98.2 F 86 20 111/69 96 12/17/17 11:36 97.8 F 83 18 96/64 100 12/17/17 08:00 99.2 F 93 20 96/63 100 Weight Admit Weight 56.699 kg Weight 56.699 kg I&O: 12/16/17 12/17/17 12/18/17 06:59 06:59 06:59 Intake Total 600 240 Output Total 50 140 75 Balance 550 100 -75 Result Diagrams: 12/17/17 03:56 12/17/17 03:56 <Dominic Adams - Last Filed: 12/17/17 19:13> - Objective Vital Signs & Weight: Vital Signs (12 hours) Temp Pulse Resp BP Pulse Ox 12/17/17 20:00 99.8 F H 91 12 125/68 97 12/17/17 19:07 98.2 F 86 20 12/17/17 16:53 98.2 F 86 20 111/69 96 12/17/17 11:36 97.8 F 83 18 96/64 100 Weight Admit Weight 56.699 kg Weight 56.699 kg I&O: 12/16/17 12/17/17 12/18/17 06:59 06:59 06:59 Intake Total 600 240 Output Total 50 140 75 Balance 550 100 -75 Result Diagrams: 12/17/17 03:56 12/17/17 03:56 <Blanca Morris - Last Filed: 12/17/17 23:34> Phys Exam - Physical Examination Constitutional: NAD HEENT: moist MMs Neck: no JVD, supple Respiratory: no wheezing Chest tube in place over left anterior chest, improved breath sounds Cardiovascular: RRR, no significant murmur Gastrointestinal: soft, non-tender Musculoskeletal: no edema, pulses present Neurological: moves all 4 limbs Psychiatric: normal affect, A&O x 3 Skin: normal turgor, cap refill <2 seconds <Dominic Adams - Last Filed: 12/17/17 19:13> Dx/Plan (1) Tuberculosis diagnosed by microscopy Code(s): A15.0 - TUBERCULOSIS OF LUNG Status: Acute (2) Primary spontaneous pneumothorax Code(s): J93.11 - PRIMARY SPONTANEOUS PNEUMOTHORAX Status: Acute (3) HLD (hyperlipidemia) Code(s): E78.5 - HYPERLIPIDEMIA, UNSPECIFIED Status: Chronic Qualifiers: Hyperlipidemia type: unspecified Qualified Code(s): E78.5 - Hyperlipidemia , unspecified (4) Spinal cord compression Code(s): G95.20 - UNSPECIFIED CORD COMPRESSION Status: Chronic - Plan Plan: 57 yo male with PMH of HLD and spinal cord compression Primary spontaneous pneumothorax -Turkel chest tube palced 12/13. AFB positive for TB. Dr. Sousa has been consulted and pt. has been placed on Ethambutol, Isoniazid, rifampin, and pyrazinamide on 12/16. Pt. has been placed on pyridoxine as well. Quant gold is pending. Pt. is on TB precautions. No bronchoscopy was performed. HLD -Continue fish oil Spinal cord compression - Pt. has decreased movement with preserved sensation. PT has been consulted and is working with Pt. in his room. Fall precautions Code: full Prophylaxis: lovenox Family: none at bedside Disposition: Home in 2-3 days <Dominic Adams - Last Filed: 12/17/17 19:13> Attending Addendum - Attending Addendum Date/Time: 12/17/17 0633 I personally evaluated the patient and discussed the management with Dr. Adams. I agree with the History, Examination, Assessment and Plan documented above with any addition or exceptions noted below. The patient is still coughing. He has a pneumothorax with persistent air leak and TB. Pt now on TB medications. ID consult pending. Will likely get chest tube changed today. <Blanca Morris - Last Filed: 12/17/17 23:34>
--- NOTE | 2017-12-17 21:46 | EKG ---
Test Reason : Blood Pressure : / mmHG Vent. Rate : 096 BPM Atrial Rate : 096 BPM P-R Int : 166 ms QRS Dur : 062 ms QT Int : 352 ms P-R-T Axes : 068 060 057 degrees QTc Int : 444 ms Normal sinus rhythm Normal ECG Confirmed by LEYLA Lombardi, BENI ([id number]), loan expeditor TONY TABARES ([id number]) on 12/17/2017 9:46:26 PM Referred By: Confirmed By:BENI MAYER M.D.
[2017-12-18] MEDS: Acetaminophen 325 MG TAB PO SCH ×6 (01:09→20:57)
[2017-12-18 04:51] LABS: #Eosinphils 0.1 thou/uL (0.0-0.7); #Lymphocytes 1.6 thou/uL (1.20-3.40); #Monocytes 1.3 thou/uL (0.11-0.59); #Neutrophils 10.2 thou/uL (1.40-6.50); %Basophils 0.1 % (0.0-1.0); %Eosinophils 0.6 % (0.0-10.0); %Lymphocytes 12.1 % (21.0-51.0); %Neutrophils 77.2 % (42.0-75.0); Hemoglobin 7.8 g/dL (14.0-18.0); Mean Corpuscular HGB CONC 31.6 g/dL (32.0-36.0); Mean Corpuscular Hemoglobin 21.2 pg (27.0-31.0); Mean Corpuscular Volume 66.9 fL (78.0-98.0); Mean Platelet Volume 7.7 fL (7.4-10.4); Platelet Count 488 thou/uL (130-400); RBC Distribution Width 15.5 % (11.5-14.5); Red Blood Cell (RBC) Count 3.67 mill/uL (4.70-6.10); White Blood Cell (WBC) Count 13.2 thou/uL (4.8-10.8)
[2017-12-18 05:02] LABS: Anion Gap 15 mmol/L (10-20); BUN (Urea Nitrogen) 41 mg/dL (8.4-25.7); Calc. Creatinine Clearance 84 mL/min (70-130); Calcium 8.8 mg/dL (7.8-10.44); Carbon Dioxide 20 mmol/L (22-29); Chloride 105 mmol/L (98-107); Estimated GFR-MDRD Greater than 90; Glucose 100 mg/dL (70-105); Potassium 4.5 mmol/L (3.5-5.1); Sodium 135 mmol/L (136-145)
--- NOTE | 2017-12-18 06:44 | PDOC.FM ---
- Subjective Subjective: Pt. did well overnight. He complains of some chest pain where the tube was placed. He denies sob, abdominal pain, nausea, or vomiting. - Objective MAR Reviewed: Yes Vital Signs & Weight: Vital Signs (12 hours) Temp Pulse Resp BP Pulse Ox 12/18/17 00:00 97.8 F 12/17/17 20:00 99.8 F H 91 12 125/68 97 12/17/17 19:07 98.2 F 86 20 Weight Admit Weight 56.699 kg Weight 56.699 kg I&O: 12/16/17 12/17/17 12/18/17 06:59 06:59 06:59 Intake Total 600 240 350 Output Total 50 140 155 Balance 550 100 195 Result Diagrams: 12/18/17 03:57 12/18/17 03:57 <Dominic Adams - Last Filed: 12/18/17 09:52> - Objective Vital Signs & Weight: Vital Signs (12 hours) Temp Pulse Resp BP Pulse Ox 12/18/17 12:04 97.6 F 75 16 94/60 100 12/18/17 08:00 97.8 F 72 16 100 12/18/17 07:30 97.3 F L 72 16 97/65 100 Weight Admit Weight 56.699 kg Weight 56.699 kg I&O: 12/17/17 12/18/17 12/19/17 06:59 06:59 06:59 Intake Total 240 350 Output Total 140 155 Balance 100 195 Result Diagrams: 12/18/17 16:01 12/18/17 03:57 <Blanca Morris - Last Filed: 12/18/17 17:00> Phys Exam - Physical Examination Constitutional: NAD HEENT: moist MMs Neck: full ROM moving air on both sides, decreased in the left with coarse lung sounds Cardiovascular: RRR, no significant murmur Gastrointestinal: soft, non-tender, no distention, positive bowel sounds Musculoskeletal: no edema, pulses present Neurological: normal sensation Psychiatric: normal affect, A&O x 3 Skin: normal turgor, cap refill <2 seconds <Dominic Adams - Last Filed: 12/18/17 09:52> Dx/Plan (1) Tuberculosis diagnosed by microscopy Code(s): A15.0 - TUBERCULOSIS OF LUNG Status: Acute (2) Primary spontaneous pneumothorax Code(s): J93.11 - PRIMARY SPONTANEOUS PNEUMOTHORAX Status: Acute (3) HLD (hyperlipidemia) Code(s): E78.5 - HYPERLIPIDEMIA, UNSPECIFIED Status: Chronic Qualifiers: Hyperlipidemia type: unspecified Qualified Code(s): E78.5 - Hyperlipidemia , unspecified (4) Spinal cord compression Code(s): G95.20 - UNSPECIFIED CORD COMPRESSION Status: Chronic - Plan Plan: 57 yo male with PMH of HLD and spinal cord compression Primary spontaneous pneumothorax -Turkel chest tube palced 12/13. AFB positive for TB. Dr. Sousa has been consulted and pt. has been placed on Ethambutol, Isoniazid, rifampin, and pyrazinamide on 12/16. Pt. has been placed on pyridoxine as well. Quant gold is pending. Pt. is on TB precautions. No bronchoscopy was performed. Anemia -Hgb has decreased from 11.9 on 12/13 to 7.8 today (12/18). Pt. has not been receiving IVFs. We are ordering FOBT to r/o gi bleed. We are also considering hemothorax. Pt. has repeat cxr today. We have added protonix. Pt. is currently on ferrous sulfate BID. HLD -Continue fish oil Spinal cord compression - Pt. has decreased movement with preserved sensation. PT has been consulted and is working with Pt. in his room. Fall precautions Code: full Prophylaxis: lovenox, protonix Family: none at bedside Disposition: Home in 2-3 days <Dominic Adams - Last Filed: 12/18/17 09:52> Attending Addendum - Attending Addendum Date/Time: 12/18/17 3006 I personally evaluated the patient and discussed the management with Dr. Adams. I agree with the History, Examination, Assessment and Plan documented above with any addition or exceptions noted below. The patient had a new chest tube placed yesterday and complains of soreness in this area. He remains on TB antibiotics. Appreciates recs from pulmonology and infectious disease. <Blanca Morris - Last Filed: 12/18/17 17:00>
[2017-12-18] MEDS: pyridOXINE 50 MG (B6) TAB PO SCH (09:45)
[2017-12-18] MEDS: Pyrazinamide 500 MG TAB PO SCH (09:45)
[2017-12-18] MEDS: Fish Oil 1,000 MG CAP PO SCH (09:45)
[2017-12-18] MEDS: Ethambutol HCl 400 MG TAB PO SCH (09:45)
[2017-12-18] MEDS: Ferrous Sulfate 325 MG TAB PO SCH ×2 (09:45→17:49)
[2017-12-18] MEDS: Rifampin 300 MG CAP PO SCH (09:46)
[2017-12-18] MEDS: Enoxaparin Sodium 40 MG/0.4 ML SYRINGE SC SCH (09:46)
[2017-12-18] MEDS: Isoniazid 100 MG TAB PO SCH (09:46)
--- NOTE | 2017-12-18 10:41 | RAD ---
UPRIGHT PORTABLE CHEST 1 VIEW: HISTORY: A 57-year-old male with a history of followup chest tube. FINDINGS: Again noted is a left chest tube with decrease in subcutaneous emphysema and decreasing left-sided pn eumothorax when compared to the prior 12/17/17 study. Persistent extensive parenchymal disease in the upper lung zones with volume loss and bilateral cavities. Slightly improving parenchymal changes in the left lung. IMPRESSION: Improving subcutaneous emphysema and improving left-sided pneumothorax. Stable extensive bilateral p ulmonary parenchymal changes with biapical cavities. Slightly improving parenchymal changes in the l eft lung. Continued short-term followup. POS: MARIAH
--- NOTE | 2017-12-18 12:21 | PRG ---
DATE OF SREVICE: 12/18/2017 SUBJECTIVE: Mr. Gregg had a larger chest tube put in yesterday that has allowed the lung to x -ray, he still has a very persistent air leak. PHYSICAL EXAMINATION: VITAL SIGNS: Temperature 99.8, pulse 91, respirations 12, O2 sat 97%, blood pressure 125/68. HEENT: Unremarkable. NECK: No JVD. LUNGS: He has chest tube on the left side, fairly clear breath sounds bilaterally. CARDIAC: S1 and S2 regular. ABDOMEN: Soft. EXTREMITIES: No edema. LABORATORY DATA: White blood cell count 13, hematocrit 24.5, platelet count 488. Sodium 135, potass ium 4.5, chloride 105, CO2 20, BUN 41, creatinine 0.7, glucose 100. ASSESSMENT: 1. Tuberculosis. 2. Left spontaneous pneumothorax with bronchopleural fistula. PLAN: 1. Continuing Pleur-evac drainage. 2. Continue drug anti-tuberculosis therapy. 3. I appreciate Dr. Bishop's assistance in managing the chest tube.
[2017-12-18 16:10] LABS: Hemoglobin 7.5 g/dL (14.0-18.0); Mean Corpuscular HGB CONC 30.7 g/dL (32.0-36.0); Mean Corpuscular Hemoglobin 20.5 pg (27.0-31.0); Mean Corpuscular Volume 66.8 fL (78.0-98.0); Mean Platelet Volume 7.3 fL (7.4-10.4); Platelet Count 490 thou/uL (130-400); RBC Distribution Width 15.7 % (11.5-14.5); Red Blood Cell (RBC) Count 3.63 mill/uL (4.70-6.10); White Blood Cell (WBC) Count 12.4 thou/uL (4.8-10.8)
--- NOTE | 2017-12-18 16:41 | CON ---
DATE OF CONSULTATION: 12/18/2017 REASON FOR CONSULTATION: Possible tuberculosis. HISTORY OF PRESENT ILLNESS: A 57-year-old who has a history of some cervical spine injury or lesion which was evaluated previously in [place] with MRIs and patient did not follow up for management of that lesion. This was a few years ago. Over the past year he has noticed a chronic worsening cough productive and progressive weight loss, night sweats, some dyspnea. The patient is able to ambulate with assistance of a walker. Does not have a wheelchair. He has become progressively weaker in his ability to ambulate has decreased. He has been in [facility] for the past 30 years. The last time he was in [place] was in 2008, reportedly. Does not recall any contact with her but tuberculosis. No visual symptoms, sore throat, odynophagia, dysphagia, no vomiting. Mild dyspnea. No abdominal pain or diarrhea. No genitourinary symptoms. 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 PAST SURGICAL HISTORY: Negative. FAMILY HISTORY: Noncontributory. SOCIAL HISTORY: Never a smoker. Lives in the area with . CURRENT MEDICATIONS: Tylenol, Lovenox, ethambutol, isoniazid, Protonix, pyrazinamide, rifampin, and vitamin B6, tramadol. PHYSICAL EXAMINATION: VITAL SIGNS: T-max 101.6, is currently afebrile. Other vital signs are normal , slightly tachycardic. O2 sat 97%. SKIN: With peripheral IV access is voiding spontaneously. No lymphadenopathy. Some element of cachexia with temporal wasting. HEENT: Ocular movements conjugate. Oral cavity with numerous missing teeth. Remainder ones with quite a bit of decay. NECK: Supple, no jugular venous distention, no thyromegaly. LUNGS: Symmetric air entry. There is a chest tube in the left side after this admission. There are diminished breath sounds in the left side. There is evidence of subcutaneous emphysema on the left side. HEART: S1, S2, regular rate. ABDOMEN: Soft, not distended or tender. GENITAL: Normal. EXTREMITIES: No joint inflammatory activity as quadriparesis noted. He is able to lift his upper extremities from the bed, but cannot sustain sustained elevation. NEUROLOGIC: Plantar responses are flexure. No clonus, no edema. He is awake, oriented, follows commands. LABORATORY DATA: White cell count 11.7, up to 17.1 and now 13.2, hemoglobin 11.4 and now 7.8, MCV 66, platelets were 490, now are 488 with a predominance of mature neutrophils. Sodium 135, creatinine 0.82. Liver profile normal. Albumin 2.3, globulin 4.8. Urinalysis with 4-6 wbc's, protein 30. HIV was nonreactive. Microbiology: One sample of sputum with 4+ acid fast bacilli. Blood cultures negative. Pleural fluid analysis negative. CT scan with multiple cavitary lesions in the right and left side and the area of pneumothorax and left side. ASSESSMENT: Chronic respiratory illness with cavitary lesions, with spontaneous pneumothorax status post chest tube placement with 4+ acid fast in the sputum. Pulmonary tuberculosis ,by far the most likely diagnosis, most likely reflects reactivation disease which he has had for quite a while. We will need to inform the Public Health Department, will contact Madai with the Health Department. The patient will have to be managed for the pneumothorax. Hopefully, does not develop a bit of bronchopleural fistula which is hard to manage in pts with Mtb. Continue 4-drug regimen plus B6 for the usual duration of therapy and then transitioned to INH, rifampin. Waiting on the full susceptibility profile of the organism and the final identification. MICHELD
[2017-12-19] MEDS: Acetaminophen 325 MG TAB PO SCH ×6 (01:26→22:05)
[2017-12-19 04:38] LABS: #Eosinphils 0.3 thou/uL (0.0-0.7); #Lymphocytes 1.6 thou/uL (1.20-3.40); #Monocytes 0.9 thou/uL (0.11-0.59); #Neutrophils 12.6 thou/uL (1.40-6.50); %Eosinophils 1.8 % (0.0-10.0); %Lymphocytes 10.2 % (21.0-51.0); %Monocytes 6.1 % (0.0-10.0); %Neutrophils 81.9 % (42.0-75.0); Hemoglobin 7.2 g/dL (14.0-18.0); Mean Corpuscular HGB CONC 32.5 g/dL (32.0-36.0); Mean Corpuscular Hemoglobin 21.8 pg (27.0-31.0); Mean Corpuscular Volume 66.9 fL (78.0-98.0); Mean Platelet Volume 7.5 fL (7.4-10.4); Platelet Count 470 thou/uL (130-400); RBC Distribution Width 15.6 % (11.5-14.5); Red Blood Cell (RBC) Count 3.29 mill/uL (4.70-6.10); White Blood Cell (WBC) Count 15.4 thou/uL (4.8-10.8)
[2017-12-19 04:42] LABS: Anion Gap 13 mmol/L (10-20); BUN (Urea Nitrogen) 27 mg/dL (8.4-25.7); Calc. Creatinine Clearance 88 mL/min (70-130); Calcium 8.9 mg/dL (7.8-10.44); Carbon Dioxide 22 mmol/L (22-29); Chloride 104 mmol/L (98-107); Estimated GFR-MDRD Greater than 90; Glucose 99 mg/dL (70-105); Sodium 135 mmol/L (136-145)
--- NOTE | 2017-12-19 06:26 | PDOC.FM ---
- Subjective Subjective: Pt doing well. Denies any fever or chills. Reports minimal pain in area of chest tube. Denies any worsening SOB or acute events overnight. No other concerns or questions at this time. - Objective MAR Reviewed: Yes Vital Signs & Weight: Vital Signs (12 hours) Temp Pulse Resp BP Pulse Ox 12/18/17 20:00 98.4 F 83 16 99/63 100 Weight Admit Weight 56.699 kg Weight 56.699 kg I&O: 12/17/17 12/18/17 12/19/17 06:59 06:59 06:59 Intake Total 240 350 350 Output Total 140 155 311 Balance 100 195 39 Result Diagrams: 12/19/17 04:02 12/19/17 04:02 Radiology Reviewed by me: Yes (Improving subq emphysema and left sided pneumonthorax) <Hiren Blue - Last Filed: 12/19/17 06:23> - Objective Vital Signs & Weight: Vital Signs (12 hours) Temp Pulse Resp BP Pulse Ox 12/19/17 07:56 99.1 F 89 16 100/63 100 Weight Admit Weight 56.699 kg Weight 56.699 kg I&O: 12/18/17 12/19/17 12/20/17 06:59 06:59 06:59 Intake Total 350 350 Output Total 155 311 Balance 195 39 Result Diagrams: 12/19/17 04:02 12/19/17 04:02 <Natasha Dallas - Last Filed: 12/19/17 10:54> Phys Exam - Physical Examination Constitutional: NAD HEENT: PERRLA Neck: no nodes, supple, full ROM Decreased breath sounds in both lungs bilteralery. Coarse. Sounds decreased more on Right Cardiovascular: RRR, no significant murmur, no rub Gastrointestinal: soft, non-tender, no distention, positive bowel sounds Musculoskeletal: no edema, pulses present Has weakness in limbs bilterally from past accident Psychiatric: normal affect, A&O x 3 Skin: no rash, cap refill <2 seconds <Hiren Blue - Last Filed: 12/19/17 06:23> Dx/Plan (1) Tuberculosis diagnosed by microscopy Code(s): A15.0 - TUBERCULOSIS OF LUNG Status: Acute (2) Primary spontaneous pneumothorax Code(s): J93.11 - PRIMARY SPONTANEOUS PNEUMOTHORAX Status: Acute (3) HLD (hyperlipidemia) Code(s): E78.5 - HYPERLIPIDEMIA, UNSPECIFIED Status: Chronic Qualifiers: Hyperlipidemia type: unspecified Qualified Code(s): E78.5 - Hyperlipidemia , unspecified (4) Spinal cord compression Code(s): G95.20 - UNSPECIFIED CORD COMPRESSION Status: Chronic - Plan Plan: 57 yo male with PMH of HLD and spinal cord compression Primary spontaneous pneumothorax 2/2 to Primary Tubereculosis -Turkel chest tube placed 12/13. Switched to large caliber 12/17. -Pulmonology consulted- continue to follow recs -AFB Positive. Quant Gold Peninding Dr. Sousa consulted- Placed on 4 drug therapy. Ethambutol, Isoniazid, Rifampin and Pyrazinamide on 12/16. Pyridoxin supplemented. -Health department to be consulted. Will await final results and cultures to tailor therapy. Anemia -Hgb has decreased from 11.9 on 12/13 to 7.2today (12/19). -FOBT pending - We are also considering hemothorax. Could be 2/2 to infection above. -On protonix and ferrous sulfate BID -WIll repeat CBC in afternoon and possibly need to give blood products. HLD -Continue fish oil Spinal cord compression - Pt. has decreased movement with preserved sensation. PT has been consulted and is working with Pt. in his room. Fall precautions <Hiren Blue - Last Filed: 12/19/17 06:23> (1) Primary spontaneous pneumothorax Code(s): J93.11 - PRIMARY SPONTANEOUS PNEUMOTHORAX Status: Acute (2) Pedal edema Code(s): R60.0 - LOCALIZED EDEMA Status: Acute (3) HLD (hyperlipidemia) Code(s): E78.5 - HYPERLIPIDEMIA, UNSPECIFIED Status: Chronic Qualifiers: Hyperlipidemia type: unspecified Qualified Code(s): E78.5 - Hyperlipidemia , unspecified (4) Spinal cord compression Code(s): G95.20 - UNSPECIFIED CORD COMPRESSION Status: Chronic <Natasha Dallas - Last Filed: 12/19/17 10:54> Attending Addendum - Attending Addendum Date/Time: 12/19/17 1052 I personally evaluated the patient and discussed the management with Dr. Blue I agree with the History, Examination, Assessment and Plan documented above with any addition or exceptions noted below- Patient denies any complaints. Minimal pain around chest tube site. Denies any SOB. Afebrile VSS. A/P: 1) Pneumothorax - s/p chest tube placement with persistent air leak. Continue management as per pulmonary and CV surgery. 2) Tuberculosis- awaiting ID from culture; started on treatment; appreciate ID recommendations. [facility] department notified. <Natasha Dallas - Last Filed: 12/19/17 10:54>
[2017-12-19] MEDS: Ferrous Sulfate 325 MG TAB PO SCH ×2 (08:03→16:44)
[2017-12-19] MEDS: Rifampin 300 MG CAP PO SCH (08:03)
[2017-12-19] MEDS: Isoniazid 100 MG TAB PO SCH (08:03)
[2017-12-19] MEDS: Fish Oil 1,000 MG CAP PO SCH (08:03)
[2017-12-19] MEDS: pyridOXINE 50 MG (B6) TAB PO SCH (08:03)
[2017-12-19] MEDS: Enoxaparin Sodium 40 MG/0.4 ML SYRINGE SC SCH (08:04)
--- NOTE | 2017-12-19 08:45 | RAD ---
PORTABLE AP CHEST: Date: 12/19/17 HISTORY: TB and pneumothorax. FINDINGS: Comparison made with study on 12/18/17. A left-sided thoracostomy tube is in place. There is evidence of a left-sided pneumothorax on the cur rent exam. Left-sided pneumothorax is larger in size compared to prior exam. Subcutaneous emphysema o n the left is again seen and is stable. Parenchymal opacities within the upper lung zones are again s een with scattered interstitial and patchy densities within the lungs bilaterally, greater on the lef t. Cavitary lesion in the right lung apex is again seen and stable. IMPRESSION: 1. Left-sided thoracostomy tube in place. Left-sided pneumothorax has increased in size compared to the prior exam. 2. Stable parenchymal changes within the upper lung zones bilaterally and involving the left mid harjeet g zone and left lung base, with stable cavitary areas including larger cavitary lesion in the right l heriberto apex. Above findings concerning enlargement of the left-sided pneumothorax was discussed with Christin, nurse on the hospital floor, on 12/19/17 at 0749 hours. CODE CR. POS: MARIAH
[2017-12-19] MEDS: Pyrazinamide 500 MG TAB PO SCH (09:28)
[2017-12-19] MEDS: Ethambutol HCl 400 MG TAB PO SCH (09:28)
[2017-12-19 10:13] LABS: Fungus Stain Final report (.)
--- NOTE | 2017-12-19 10:35 | PRG ---
DATE OF SERVICE: 12/19/2017 SERVICE: Pulmonary Medicine. INTERVAL HISTORY: The patient is breathing comfortably. He has no complaints of fevers, chills, nausea, vomiting, or chest discomfort. Otherwise, he is in his usual state of health. He has a persistent air leak. Nursing reports no overnight events. PHYSICAL EXAMINATION: VITAL SIGNS: Afebrile, pulse 89, blood pressure 100/63, respirations 16, saturation 100% on room air. GENERAL: The patient is awake, alert, in no apparent distress. LUNGS: Decent air entry. Rhonchi are present. There is no prolonged expiratory phase or wheezing appreciated. HEART: Normal rate and regular. ABDOMEN: Soft, nontender, nondistended. Bowel sounds are positive. MUSCULOSKELETAL: No cyanosis or clubbing. There is no pitting in the bilateral lower extremities. NEUROLOGIC: Grossly nonfocal. LABORATORY DATA: WBC 15.4, hemoglobin 7.2, platelets of 470,000. Basic metabolic profile was essentially unremarkable. Culture results are all negative to date. The sputum AFB smear is strongly positive. Routine sputum culture, however, is not growing anything. ASSESSMENT: 1. Secondary spontaneous pneumothorax. 2. Pulmonary tuberculosis. DISCUSSION, AND PLAN: The pneumothorax has not resolved on imaging today. He does have a persistent air leak. The leak is much too small to be consistent with a bronchopleural fistula. If it persists, we will drop the negative pressure for a couple of days to see if this helps the lesion seal up. Pleurodesis may need to be considered in the event that fails. Pulmonary will continue to follow along. JULIUS
[2017-12-19 14:20] LABS: Hemoglobin 7.8 g/dL (14.0-18.0); Mean Corpuscular HGB CONC 30.2 g/dL (32.0-36.0); Mean Corpuscular Hemoglobin 20.1 pg (27.0-31.0); Mean Corpuscular Volume 66.6 fL (78.0-98.0); Mean Platelet Volume 7.5 fL (7.4-10.4); Platelet Count 672 thou/uL (130-400); RBC Distribution Width 15.7 % (11.5-14.5); Red Blood Cell (RBC) Count 3.86 mill/uL (4.70-6.10); White Blood Cell (WBC) Count 17.8 thou/uL (4.8-10.8)
[2017-12-19] MEDS: Docusate 100 MG CAP PO PRN (16:44)
[2017-12-20] MEDS: Acetaminophen 325 MG TAB PO SCH ×6 (02:46→21:20)
[2017-12-20 04:39] LABS: Anion Gap 15 mmol/L (10-20); BUN (Urea Nitrogen) 21 mg/dL (8.4-25.7); Calc. Creatinine Clearance 94 mL/min (70-130); Calcium 8.9 mg/dL (7.8-10.44); Carbon Dioxide 19 mmol/L (22-29); Chloride 102 mmol/L (98-107); Estimated GFR-MDRD Greater than 90; Glucose 97 mg/dL (70-105); Potassium 3.9 mmol/L (3.5-5.1); Sodium 132 mmol/L (136-145)
[2017-12-20 05:14] LABS: Band 1 % (5-11); Hemoglobin 7.1 g/dL (14.0-18.0); Hypochromia MODERATE=16-30 cells (100X) (0-5/hpf); Lymphocytes 14 % (21-51); MDiff Complete? YES; Mean Corpuscular HGB CONC 32.4 g/dL (32.0-36.0); Mean Corpuscular Hemoglobin 21.4 pg (27.0-31.0); Mean Platelet Volume 7.5 fL (7.4-10.4); Microcytosis SLIGHT = 6-15 cells (100X) (0-5/hpf); Monocytes 3 % (0-10); Neutrophil 82 % (42-75); PLT Morphology Comment Appears Increased; Platelet Count 645 thou/uL (130-400); RBC Distribution Width 15.6 % (11.5-14.5); Red Blood Cell (RBC) Count 3.33 mill/uL (4.70-6.10)
[2017-12-20] MEDS: Docusate 100 MG CAP PO PRN ×2 (05:23→17:41)
[2017-12-20] MEDS: Enoxaparin Sodium 40 MG/0.4 ML SYRINGE SC SCH (09:28)
[2017-12-20] MEDS: Ethambutol HCl 400 MG TAB PO SCH (09:28)
[2017-12-20] MEDS: Fish Oil 1,000 MG CAP PO SCH (09:28)
[2017-12-20] MEDS: pyridOXINE 50 MG (B6) TAB PO SCH (09:28)
[2017-12-20] MEDS: Rifampin 300 MG CAP PO SCH (09:28)
[2017-12-20] MEDS: Ferrous Sulfate 325 MG TAB PO SCH ×2 (09:28→17:41)
[2017-12-20] MEDS: Isoniazid 100 MG TAB PO SCH (09:28)
[2017-12-20] MEDS: Pyrazinamide 500 MG TAB PO SCH (10:56)
--- NOTE | 2017-12-20 11:23 | PRG ---
DATE OF SERVICE: 12/20/2017 SERVICE: Pulmonary Medicine. INTERVAL HISTORY: The patient is doing really well from a respiratory standpoint. He is breathing comfortably. That being said, he has a persistent slow air leak. He denies any current chest pain, fevers, or chills. Otherwise , there has been no interval change to his condition. We are essentially waiting for this leak to stop. If he can tolerate going home on a Heimlich valve, I think this would be a reasonable option for him if he has good followup. PHYSICAL EXAMINATION: VITAL SIGNS: Afebrile, pulse 85, respirations 14, saturation 100% on room air. Blood pressure 114/72. GENERAL: The patient is awake, alert, in no apparent distress. LUNGS: Excellent air entry. Rhonchi are present. There is no prolonged expiratory phase or wheezing appreciated. HEART: Normal rate and regular. ABDOMEN: Soft, nontender, nondistended. Bowel sounds are positive. MUSCULOSKELETAL: No cyanosis or clubbing. There is no pitting in the bilateral lower extremities. NEUROLOGIC: Grossly nonfocal. LABORATORY DATA: Lab data was reviewed after the note was generated secondary to computer downtime. ASSESSMENT: 1. Pulmonary tuberculosis, likely reactivation. 2. Spontaneous secondary pneumothorax. DISCUSSION AND PLAN: At this point, we are simply waiting for this lung to heal up. Pulmonary Critical Care will continue to follow along for the time being. We will try reducing our pressure today. JULIUS
--- NOTE | 2017-12-20 11:23 | RAD ---
PORTABLE CHEST: 12/20/2017 PROVIDED CLINICAL HISTORY: TB and pneumothorax. COMPARISON: 12/19/2017 FINDINGS: Significant interval change with respect to the prior examination is not apparent. IMPRESSION: As above. POS: MARIAH
[2017-12-20 13:01] LABS: Iron 8 ug/dL (65-175); Iron Binding Capacity, Total 108 mcg/dL (261-462)
--- NOTE | 2017-12-20 18:31 | PRG ---
DATE OF SERVICE: 12/20/2017 SUBJECTIVE: Still feeling weak, able to eat a little better. No respiratory symptoms, no abdominal pain. OBJECTIVE: VITAL SIGNS: T-max 99.1, blood pressure 105/68, pulse 95, respirations 16. GENERAL: Awake, alert. HEENT: Ocular movements conjugate. LUNGS: With scattered rhonchi. Diminished breath sounds in the left side. CARDIOVASCULAR: S1, S2, regular rate. ABDOMEN: Soft, not distended. EXTREMITIES: Moves extremities equally. ASSESSMENT AND DISCUSSION: His chest x-ray from today demonstrated no evidence of changes in the pre vious x-ray with evidence of stable parenchymal changes upper lung zones, left-sided thoracostomy tub e in place, left-sided pneumothorax. The patient has developed worsening anemia and he will continue on current 4-drug regimen plus pyridoxine and the discharge planning, we will have to wait to resolu tion of the pneumothorax that allows removal of the chest tube. He will need 6 months of therapy and we will have to confirm the identification of the organism and susceptibility to the administered dr erwin.
[2017-12-21] MEDS: Acetaminophen 325 MG TAB PO SCH ×6 (01:57→20:07)
[2017-12-21 04:14] LABS: #Eosinphils 0.5 thou/uL (0.0-0.7); #Monocytes 0.7 thou/uL (0.11-0.59); #Neutrophils 10.7 thou/uL (1.40-6.50); %Basophils 0.1 % (0.0-1.0); %Eosinophils 3.5 % (0.0-10.0); %Lymphocytes 14.2 % (21.0-51.0); %Neutrophils 77.2 % (42.0-75.0); Mean Corpuscular HGB CONC 31.7 g/dL (32.0-36.0); Mean Corpuscular Volume 66.4 fL (78.0-98.0); Mean Platelet Volume 7.4 fL (7.4-10.4); Platelet Count 776 thou/uL (130-400); RBC Distribution Width 15.7 % (11.5-14.5); Red Blood Cell (RBC) Count 3.34 mill/uL (4.70-6.10); White Blood Cell (WBC) Count 13.9 thou/uL (4.8-10.8)
[2017-12-21 04:30] LABS: Anion Gap 13 mmol/L (10-20); BUN (Urea Nitrogen) 20 mg/dL (8.4-25.7); Calc. Creatinine Clearance 100 mL/min (70-130); Calcium 8.7 mg/dL (7.8-10.44); Carbon Dioxide 22 mmol/L (22-29); Chloride 104 mmol/L (98-107); Estimated GFR-MDRD Greater than 90; Glucose 94 mg/dL (70-105); Sodium 135 mmol/L (136-145)
--- NOTE | 2017-12-21 07:42 | RAD ---
CHEST UPRIGHT PORTABLE 1 VIEW: HISTORY: A 57-year-old male with a history of TB and pneumothorax. FINDINGS: Left chest tube remains in place. Small residual left-sided pneumothorax. Stable bilateral alveolar nodular and interstitial parenchymal changes, particularly the left lung and biapical cavities. Imp roving subcutaneous emphysema. IMPRESSION: Stable to slightly improving left-sided pneumothorax. Stable extensive bilateral pulmonary parenchym al changes including biapical cavities. POS: OFF
[2017-12-21] MEDS: Ethambutol HCl 400 MG TAB PO SCH (08:41)
[2017-12-21] MEDS: pyridOXINE 50 MG (B6) TAB PO SCH (08:41)
[2017-12-21] MEDS: Ferrous Sulfate 325 MG TAB PO SCH ×2 (08:41→16:46)
[2017-12-21] MEDS: Enoxaparin Sodium 40 MG/0.4 ML SYRINGE SC SCH (08:42)
[2017-12-21] MEDS: Fish Oil 1,000 MG CAP PO SCH (08:42)
[2017-12-21] MEDS: Isoniazid 100 MG TAB PO SCH (08:42)
[2017-12-21] MEDS: Rifampin 300 MG CAP PO SCH (08:42)
[2017-12-21] MEDS: Pyrazinamide 500 MG TAB PO SCH (08:43)
[2017-12-21] MEDS: Polyethylene Glycol 3350 17 GM Packet PER TUBE SCH (08:43)
[2017-12-21] MEDS: Ascorbic Acid 500 mg Chewable Tablet PO SCH (09:00)
--- NOTE | 2017-12-21 09:00 | PDOC.FM ---
- Subjective Subjective: Pt reports doing fine. Denies any SOB. Denies any acute events overnight. has not had BM yet. Denies any chest pain. Denies any n/v/d/c. No other concerns or questions at this time. - Objective MAR Reviewed: Yes Vital Signs & Weight: Vital Signs (12 hours) Temp Pulse Resp BP Pulse Ox 12/21/17 07:39 100 12/21/17 07:12 98.3 F 82 16 97/61 100 Weight Admit Weight 56.699 kg Weight 56.699 kg I&O: 12/20/17 12/21/17 12/22/17 06:59 06:59 06:59 Intake Total 1200 1050 Output Total 1460 610 Balance -260 440 Result Diagrams: 12/21/17 03:30 12/21/17 03:30 Radiology Reviewed by me: Yes Radiology: 12/21: Stable to slightly improving left-sided pneumothorax. stable extensive bilateral pulmonary parencymal changes including biapical cavities <Hiren Blue - Last Filed: 12/21/17 09:03> - Objective Vital Signs & Weight: Vital Signs (12 hours) Temp Pulse Resp BP Pulse Ox 12/21/17 07:39 100 12/21/17 07:12 98.3 F 82 16 97/61 100 Weight Admit Weight 56.699 kg Weight 56.699 kg I&O: 12/20/17 12/21/17 12/22/17 06:59 06:59 06:59 Intake Total 1200 1050 Output Total 1460 610 Balance -260 440 Result Diagrams: 12/21/17 03:30 12/21/17 03:30 <Natasha Dallas - Last Filed: 12/21/17 11:38> Phys Exam - Physical Examination Constitutional: NAD HEENT: PERRLA, moist MMs Neck: no nodes, supple, full ROM Decreased lung sounds in left side. Crackles in left lower base Cardiovascular: RRR, no significant murmur, no rub Gastrointestinal: soft, non-tender, no distention, positive bowel sounds Musculoskeletal: no edema, pulses present Has bilateral LE and UE weakness due to past spinal cord compression injury Lymphatic: no nodes Psychiatric: normal affect Skin: no rash, normal turgor, cap refill <2 seconds <Hiren Blue - Last Filed: 12/21/17 09:03> Dx/Plan (1) Tuberculosis diagnosed by microscopy Code(s): A15.0 - TUBERCULOSIS OF LUNG Status: Acute (2) Primary spontaneous pneumothorax Code(s): J93.11 - PRIMARY SPONTANEOUS PNEUMOTHORAX Status: Acute (3) HLD (hyperlipidemia) Code(s): E78.5 - HYPERLIPIDEMIA, UNSPECIFIED Status: Chronic Qualifiers: Hyperlipidemia type: unspecified Qualified Code(s): E78.5 - Hyperlipidemia , unspecified (4) Spinal cord compression Code(s): G95.20 - UNSPECIFIED CORD COMPRESSION Status: Chronic - Plan Plan: Primary spontaneous pneumothorax / to Primary Tubereculosis -Turkel chest tube placed 12/13. Switched to large caliber 12/17. Pneumonthorax shows minimal improvement today. Will take time -Pulmonology consulted- continue to follow recs -Will lower negative pressure in room -AFB Positive. Quant Gold Peninding Dr. Sousa consulted- Placed on 4 drug therapy. Ethambutol, Isoniazid, Rifampin and Pyrazinamide on 12/16. Pyridoxin supplemented. -Health department to be consulted. Will await final results and cultures to tailor therapy. -Plan for 6 mo of treatment Anemia -Hgb has decreased from 11.9 on 12/13 to 7.0 (12/21). -Iron studies done shown Anemia of chronic disease. Related to Tb infection above. On Iron BID. Will also supplement vit c to help with absorption. May consider transfusion if drops lower. -FOBT pending. Has not had BM yet HLD -Continue fish oil Spinal cord compression - Pt. has decreased movement with preserved sensation. PT has been consulted and is working with Pt. in his room. Fall precautions Constipation -Pt has problems with constipation at home. Has not had BM for quite a few days now. -Have tried colace and miralax yesterday. Will give lactulose today. <Hiren Blue - Last Filed: 12/21/17 09:03> (1) Primary spontaneous pneumothorax Code(s): J93.11 - PRIMARY SPONTANEOUS PNEUMOTHORAX Status: Acute (2) Pedal edema Code(s): R60.0 - LOCALIZED EDEMA Status: Acute (3) HLD (hyperlipidemia) Code(s): E78.5 - HYPERLIPIDEMIA, UNSPECIFIED Status: Chronic Qualifiers: Hyperlipidemia type: unspecified Qualified Code(s): E78.5 - Hyperlipidemia , unspecified (4) Spinal cord compression Code(s): G95.20 - UNSPECIFIED CORD COMPRESSION Status: Chronic <Natasha Dallas - Last Filed: 12/21/17 11:38> Attending Addendum - Attending Addendum Date/Time: 12/21/17 1136 I personally evaluated the patient and discussed the management with Dr. Blue. I agree with the History, Examination, Assessment and Plan documented above with any addition or exceptions noted below- Patient without complaints. sat up in chair yesterday. Still has not had BM. Afebrile VSS A/P: 1) Pneumothorax- continue chest tube. Plans as per pulmonary and CV surgery. 2) Tuberculosis- continue current meds. <Natasha Dallas - Last Filed: 12/21/17 11:38>
--- NOTE | 2017-12-21 14:06 | PRG ---
DATE OF SERVICE: 12/21/2017 SERVICE: Pulmonary Medicine. INTERVAL HISTORY: The patient is doing great from a respiratory standpoint. He is breathing comfort ably. He has a little side discomfort where the chest tube is, but otherwise, there were no events o vernight. He had no fevers. Otherwise, he is in his usual state of health and nursing reports no ev ents. PHYSICAL EXAMINATION: VITAL SIGNS: Afebrile, pulse 82, blood pressure 97/61, respirations 16, saturation 100% on room air. GENERAL: The patient is awake, alert, no apparent distress. LUNGS: Excellent air entry. Rhonchi are present throughout the left lung. They are also present in the right lung, but less severe. No prolonged expiratory phase or wheezing is appreciated. HEART: Normal rate, regular. ABDOMEN: Soft, nontender, nondistended. Bowel sounds are positive. MUSCULOSKELETAL: No cyanosis or clubbing. There is no pitting in the bilateral lower extremities. NEUROLOGIC: Nonfocal. LABORATORY DATA: WBC 13.9, hemoglobin 7.0 and stable, platelets 776,000. Basic metabolic profile is essentially unremarkable otherwise. Urinalysis is negative. HIV is nonreactive. IMAGING DATA: Chest x-ray demonstrates a very small pneumothorax on the left side. There is airspac e disease which is extensive and more predominantly displayed in the apical regions. ASSESSMENT: 1. Secondary spontaneous pneumothorax. 2. Pulmonary tuberculosis, likely reactivation. DISCUSSION AND PLAN: I am going to drop to suction of the chest tube to 10 cm of water pressure. Ho pefully, this will decrease the amount of air movement across whatever pinhole exists. This may faci litate that closing. If this increase in the size of pneumothorax, as long as the patient tolerates it, I am okay with it. Pulmonary or Critical Care will continue to follow along in this location. L aboratory holiday will be provided for the patient in the morning.
[2017-12-21 14:26] LABS: Folate,Hemolysate 256.1 ng/mL (Not Estab.); RBC Folate Test Component 1164 ng/mL (>498)
[2017-12-22] MEDS: Acetaminophen 325 MG TAB PO SCH ×6 (00:30→20:45)
--- NOTE | 2017-12-22 08:08 | PDOC.FM ---
- Subjective Subjective: Pt reports having a little more pain in his back today. Has gotten tylenol but still having pain. Denies fever/chills. Denies SOB. Denies any acute events overnight. No other concerns or complaints at this time. - Objective MAR Reviewed: Yes Vital Signs & Weight: Vital Signs (12 hours) Temp Pulse Ox 12/22/17 07:18 100 12/22/17 00:00 98.9 F Weight Admit Weight 56.699 kg Weight 56.699 kg I&O: 12/21/17 12/22/17 12/23/17 06:59 06:59 06:59 Intake Total 1050 480 Output Total 610 780 Balance 440 -300 Result Diagrams: 12/21/17 03:30 12/21/17 03:30 Radiology Reviewed by me: Yes (Official read on 12/22 xray pending. Seems to show improvement) <Hiren Blue - Last Filed: 12/22/17 08:06> - Objective Vital Signs & Weight: Vital Signs (12 hours) Temp Pulse Resp BP Pulse Ox 12/22/17 08:00 97.8 F 77 18 94/60 100 12/22/17 07:18 100 12/22/17 00:00 98.9 F Weight Admit Weight 56.699 kg Weight 56.699 kg I&O: 12/21/17 12/22/17 12/23/17 06:59 06:59 06:59 Intake Total 1050 480 Output Total 610 780 Balance 440 -300 Result Diagrams: 12/21/17 03:30 12/21/17 03:30 <Natasha Dallas - Last Filed: 12/22/17 10:04> Phys Exam - Physical Examination HEENT: PERRLA, moist MMs Neck: no nodes, supple Decreased lung sounds on left. Rales noted. Cardiovascular: RRR, no significant murmur, no rub Gastrointestinal: soft, non-tender, no distention, positive bowel sounds Musculoskeletal: no edema, pulses present Weakness in LE and UE due to spinal cord compression Psychiatric: normal affect, A&O x 3 Skin: no rash, normal turgor, cap refill <2 seconds <Hiren Blue - Last Filed: 12/22/17 08:06> Dx/Plan (1) Tuberculosis diagnosed by microscopy Code(s): A15.0 - TUBERCULOSIS OF LUNG Status: Acute (2) Primary spontaneous pneumothorax Code(s): J93.11 - PRIMARY SPONTANEOUS PNEUMOTHORAX Status: Acute (3) HLD (hyperlipidemia) Code(s): E78.5 - HYPERLIPIDEMIA, UNSPECIFIED Status: Chronic Qualifiers: Hyperlipidemia type: unspecified Qualified Code(s): E78.5 - Hyperlipidemia , unspecified (4) Spinal cord compression Code(s): G95.20 - UNSPECIFIED CORD COMPRESSION Status: Chronic - Plan Plan: Primary spontaneous pneumothorax / to Primary Tubereculosis -Turkel chest tube placed 12/13. Switched to large caliber 12/17. 12/22 Cxray official read pending. Seems to be improving from yesterday -Pulmonology consulted-Dr. Arriola- continue to follow recs -AFB Positive. Quant Gold Peninding Dr. Sousa consulted- Placed on 4 drug therapy. Ethambutol, Isoniazid, Rifampin and Pyrazinamide on 12/16. Pyridoxin supplemented. -Health department to be consulted. Will await final results and cultures to tailor therapy. -Plan for 6 mo of treatment Anemia -Hgb has decreased from 11.9 on 12/13 to 7.0 (12/21). Per Dr. Arriola wanted to give patient a lab break. pt vitals stable. No sign of acute blood loss. -Iron studies done shown Anemia of chronic disease. Related to Tb infection above. On Iron BID. Will also supplement vit c to help with absorption. May consider transfusion if drops lower. -FOBT negative HLD -Continue fish oil Spinal cord compression - Pt. has decreased movement with preserved sensation. PT has been consulted and is working with Pt. in his room. Fall precautions Constipation -Pt has problems with constipation at home. Has not had BM for quite a few days now. -Have tried colace and miralax yesterday. Will give lactulose today. -Will try and get pt up to chair and see if helps. <Hiren Blue - Last Filed: 12/22/17 08:06> (1) Primary spontaneous pneumothorax Code(s): J93.11 - PRIMARY SPONTANEOUS PNEUMOTHORAX Status: Acute (2) Pedal edema Code(s): R60.0 - LOCALIZED EDEMA Status: Acute (3) HLD (hyperlipidemia) Code(s): E78.5 - HYPERLIPIDEMIA, UNSPECIFIED Status: Chronic Qualifiers: Hyperlipidemia type: unspecified Qualified Code(s): E78.5 - Hyperlipidemia , unspecified (4) Spinal cord compression Code(s): G95.20 - UNSPECIFIED CORD COMPRESSION Status: Chronic <Natasha Dallas - Last Filed: 12/22/17 10:04> Attending Addendum - Attending Addendum Date/Time: 12/22/17 1001 I personally evaluated the patient and discussed the management with Dr. Blue I agree with the History, Examination, Assessment and Plan documented above with any addition or exceptions noted below- Patient without complaints. Denies any SOB. Afebrile VSS. A/P: 1) Pneumothorax- continue chest tube. 2) Tuberculosis- continue current meds; awaiting culture ID. <Natasha Dallas - Last Filed: 12/22/17 10:04>
--- NOTE | 2017-12-22 08:43 | RAD ---
UPRIGHT PORTABLE CHEST 1 VIEW: HISTORY: A 57-year-old male with a history of pneumothorax and TB. FINDINGS: Left chest tube again noted in place. Again noted is a small left-sided pneumothorax which may be sl ightly larger than on the prior study. There is persistent subcutaneous emphysema and persistent pul monary and parenchymal disease with upper lobe cavities and volume loss. IMPRESSION: Little change in the left sided pneumothorax, it may be very slightly larger than on the prior study. POS: OFF
[2017-12-22] MEDS: Ethambutol HCl 400 MG TAB PO SCH (09:21)
[2017-12-22] MEDS: pyridOXINE 50 MG (B6) TAB PO SCH (09:21)
[2017-12-22] MEDS: Rifampin 300 MG CAP PO SCH (09:21)
[2017-12-22] MEDS: Isoniazid 100 MG TAB PO SCH (09:21)
[2017-12-22] MEDS: Ascorbic Acid 500 mg Chewable Tablet PO SCH (09:22)
[2017-12-22] MEDS: Ferrous Sulfate 325 MG TAB PO SCH ×2 (09:22→17:22)
[2017-12-22] MEDS: Pyrazinamide 500 MG TAB PO SCH (09:22)
[2017-12-22] MEDS: Enoxaparin Sodium 40 MG/0.4 ML SYRINGE SC SCH (09:23)
[2017-12-22] MEDS: Polyethylene Glycol 3350 17 GM Packet PER TUBE SCH (09:23)
[2017-12-22] MEDS: Fish Oil 1,000 MG CAP PO SCH (09:23)
--- NOTE | 2017-12-22 16:14 | PRG ---
DATE OF SERVICE: 12/22/2017 SERVICE: Pulmonary Medicine. INTERVAL HISTORY: We dropped the suction on the atrium. With the lower suction pressure, the patient continues to have a little bit of a persistent air leak. That being said, he is tolerated quite well. Denies any current shortness of breath or chest discomfort. There has been no specific interval change to his condition. PHYSICAL EXAMINATION: VITAL SIGNS: Afebrile, pulse 77, blood pressure 94/60, respirations 18, and saturation 100% on room air. GENERAL: The patient is awake, alert, no apparent distress. LUNGS: Decent air entry with no prolonged expiratory phase or wheezing present. HEART: Normal rate, regular. ABDOMEN: Soft, nontender, nondistended. Bowel sounds are positive. MUSCULOSKELETAL: No cyanosis or clubbing. There is no pitting in the bilateral lower extremities. LABORATORY DATA: WBC 13.9, hemoglobin 7.0, platelets 776,000. Basic metabolic profile was previously unremarkable. IMAGING DATA: Chest x-ray demonstrates persistence of a small pneumothorax in the left chest. Pneumothorax is slightly larger compared to prior. ASSESSMENT: 1. Secondary spontaneous pneumothorax. 2. Pulmonary tuberculosis, likely reactivation. DISCUSSION AND PLAN: I will take him off of suction and put him on a simple Heimlich valve. Hopefully, this will facilitate closure of the hole in his lung. As long as the patient tolerates it, it is fine. If the chest x-ray shows interval increase in the pneumothorax, there should be no need for us to go back to suction at this point. We will leave him in this way until the hole in the lung closes off and the lung re-expands in full. He will likely need to stay this way through the weekend. Pulmonary Critical Care will continue to follow along while patient remains in house. JULIUS
--- NOTE | 2017-12-22 17:50 | PRG ---
DATE OF SERVICE: 12/22/2017 SUBJECTIVE: Sitting up by the bedside, Dr. Arriola has ordered Heimlich valve to be placed in the ch est tube area. He is feeling better and has a better appetite, still having pain in the chest area l eft side as expected. No headaches. No visual symptoms, sore throat, odynophagia, dysphagia. No vo miting. No abdominal pain. Mild dyspnea. OBJECTIVE: VITAL SIGNS: T-max 99.1, currently 97.8; blood pressure 194/60; pulse 77; respirations 18; O2 sat 10 0. SKIN: Shows the chest tube peripheral IV access. The patient is voiding in the diaper. HEENT: Ocular movements conjugate. Temporal wasting noted. LUNGS: With loud rhonchi and crackles in the upper lung pang, more prominent on the left side. HEART: S1, S2, regular rate. ABDOMEN: Soft, not distended or tender. No ascites. EXTREMITIES: Moves extremities equally. LABORATORY DATA: White cell count 13.9, hemoglobin 7, platelets 776. Creatinine 0.66 and last liver profile is from 12/13/2017 and was within normal limits. The acid-fast organism cultures are still pending and he continues on 4-drug regimen plus pyridoxine. ASSESSMENT AND DISCUSSION: Spontaneous pneumothorax with multiple cavitary lesions likely secondary to Mycobacterium tuberculosis already on treatment. He has been on treatment since 12/18/2017 and on ce the pneumothorax issue is resolved and discharge planning under directly observed therapy through the Health Department.
[2017-12-23] MEDS: Acetaminophen 325 MG TAB PO SCH ×6 (00:46→20:48)
--- NOTE | 2017-12-23 08:12 | PDOC.FM ---
- Subjective Subjective: Pt reports sleeping a little better tonight. Reports having back pain. Denies wanting anything stronger to help with the pain. On tylenol and tramadol PRN. Denies any SOB. Denies any fever or chills. Denies any acute events overnight. No other concerns or questions at this time. - Objective Vital Signs & Weight: Vital Signs (12 hours) Temp Pulse Resp BP Pulse Ox 12/23/17 07:38 98.1 F 70 16 94/58 L 100 12/23/17 04:41 98.1 F 12/23/17 02:42 100 12/23/17 01:00 99.0 F Weight Admit Weight 56.699 kg Weight 56.699 kg I&O: 12/22/17 12/23/17 12/24/17 06:59 06:59 06:59 Intake Total 480 480 Output Total 780 600 Balance -300 -120 Result Diagrams: 12/21/17 03:30 12/21/17 03:30 Radiology Reviewed by me: Yes (little change in pneumothorax) <Hiren Blue - Last Filed: 12/23/17 08:10> - Objective Vital Signs & Weight: Vital Signs (12 hours) Temp Pulse Resp BP Pulse Ox 12/23/17 07:38 98.1 F 70 16 94/58 L 100 12/23/17 04:41 98.1 F 12/23/17 02:42 100 12/23/17 01:00 99.0 F Weight Admit Weight 56.699 kg Weight 56.699 kg I&O: 12/22/17 12/23/17 12/24/17 06:59 06:59 06:59 Intake Total 480 480 Output Total 780 600 Balance -300 -120 Result Diagrams: 12/21/17 03:30 12/21/17 03:30 <Natasha Dallas - Last Filed: 12/23/17 10:48> Phys Exam - Physical Examination Constitutional: NAD HEENT: PERRLA, moist MMs Neck: no nodes, supple, full ROM decreased lung sounds in left base. Rales and crackles noted Cardiovascular: RRR, no significant murmur, no rub Gastrointestinal: soft, non-tender, no distention, positive bowel sounds Musculoskeletal: no edema, pulses present Weakness in LE/UE due to cord compression injury. Bed ridden Lymphatic: no nodes Psychiatric: normal affect, A&O x 3 Skin: no rash, normal turgor, cap refill <2 seconds <Hiren Blue - Last Filed: 12/23/17 08:10> Dx/Plan (1) Tuberculosis diagnosed by microscopy Code(s): A15.0 - TUBERCULOSIS OF LUNG Status: Acute (2) Primary spontaneous pneumothorax Code(s): J93.11 - PRIMARY SPONTANEOUS PNEUMOTHORAX Status: Acute (3) HLD (hyperlipidemia) Code(s): E78.5 - HYPERLIPIDEMIA, UNSPECIFIED Status: Chronic Qualifiers: Hyperlipidemia type: unspecified Qualified Code(s): E78.5 - Hyperlipidemia , unspecified (4) Spinal cord compression Code(s): G95.20 - UNSPECIFIED CORD COMPRESSION Status: Chronic - Plan Plan: Primary spontaneous pneumothorax / to Primary Tubereculosis -Turkel chest tube placed 12/13. Switched to large caliber 12/17. 12/22 shows minimal improvement. -switched off suction and to a heimlich valve yesterday. -Pulmonology consulted-Dr. Arriola- continue to follow recs -AFB Positive. Quant Gold positive Dr. Sousa consulted- Placed on 4 drug therapy. Ethambutol, Isoniazid, Rifampin and Pyrazinamide on 12/16. Pyridoxin supplemented. -Health department to be consulted. Will await final results and cultures to tailor therapy. Plan once pneumothorax heals to get supervised tx by health department at home -Plan for 6 mo of treatment Anemia -Hgb has decreased from 11.9 on 12/13 to 7.0 (12/21). Per Dr. Arriola wanted to give patient a lab break. pt vitals stable. No sign of acute blood loss. -Iron studies done shown Anemia of chronic disease. Related to Tb infection above. On Iron BID. Will also supplement vit c to help with absorption. May consider transfusion if drops lower. -FOBT negative HLD -Continue fish oil Spinal cord compression - Pt. has decreased movement with preserved sensation. PT has been consulted and is working with Pt. in his room. Fall precautions Constipation -Pt has problems with constipation at home. Has not had BM for quite a few days now. -Have tried colace and miralax yesterday. Will give lactulose today. Added Mag Citrate -Continue getting to chair as much as possible <Hiren Blue - Last Filed: 12/23/17 08:10> (1) Primary spontaneous pneumothorax Code(s): J93.11 - PRIMARY SPONTANEOUS PNEUMOTHORAX Status: Acute (2) Pedal edema Code(s): R60.0 - LOCALIZED EDEMA Status: Acute (3) HLD (hyperlipidemia) Code(s): E78.5 - HYPERLIPIDEMIA, UNSPECIFIED Status: Chronic Qualifiers: Hyperlipidemia type: unspecified Qualified Code(s): E78.5 - Hyperlipidemia , unspecified (4) Spinal cord compression Code(s): G95.20 - UNSPECIFIED CORD COMPRESSION Status: Chronic <Natasha Dallas - Last Filed: 12/23/17 10:48> Attending Addendum - Attending Addendum Date/Time: 12/23/17 1045 I personally evaluated the patient and discussed the management with Dr. Blue I agree with the History, Examination, Assessment and Plan documented above with any addition or exceptions noted below - Patient without complaints. Afebrile VSS. 1) Pneumothorax- stable; changed to Heimlich valve per pulmonary. 2) Tuberculosis- continue current meds. Await ID and sensitivities. 3) Deconditioning- up in chair and begin PT in the room. <Natasha Dallas - Last Filed: 12/23/17 10:48>
[2017-12-23] MEDS ORDERED: Magnesium Citrate 300 ML BOT PO SCH (08:15)
[2017-12-23] MEDS: Pyrazinamide 500 MG TAB PO SCH (10:01)
[2017-12-23] MEDS: Rifampin 300 MG CAP PO SCH (10:01)
[2017-12-23] MEDS: Fish Oil 1,000 MG CAP PO SCH (10:01)
[2017-12-23] MEDS: Ethambutol HCl 400 MG TAB PO SCH (10:01)
[2017-12-23] MEDS: Isoniazid 100 MG TAB PO SCH (10:01)
[2017-12-23] MEDS: Enoxaparin Sodium 40 MG/0.4 ML SYRINGE SC SCH (10:02)
[2017-12-23] MEDS: Ascorbic Acid 500 mg Chewable Tablet PO SCH (10:02)
[2017-12-23] MEDS: Ferrous Sulfate 325 MG TAB PO SCH ×2 (10:02→17:30)
[2017-12-23] MEDS: pyridOXINE 50 MG (B6) TAB PO SCH (10:02)
[2017-12-23] MEDS: Polyethylene Glycol 3350 17 GM Packet PER TUBE SCH (10:03)
--- NOTE | 2017-12-23 11:40 | PRG ---
DATE OF SERVICE: 12/23/2017 SERVICE: Pulmonary Medicine INTERVAL HISTORY: The patient is doing fine from a breathing standpoint. He denies any chest tubes, nausea, vomiting. He has actually tolerated Heimlich valve just fine. He continues to have a persistent air leak with cough, and deep breathing. Otherwise, there has been no interval change to his condition. PHYSICAL EXAMINATION: VITAL SIGNS: Afebrile, pulse 70, blood pressure 94/58, respirations 16, saturation 100% on room air. GENERAL: The patient is awake, alert, in no apparent distress. LUNGS: Decent air entry. There is no prolonged expiratory phase, wheezing, rhonchi, or crackles identified. HEART: Normal rate, regular. ABDOMEN: Soft, nontender, nondistended. Bowel sounds are positive. MUSCULOSKELETAL: No cyanosis or clubbing. There is no pitting in the bilateral lower extremities. NEUROLOGIC: Grossly nonfocal. LABORATORY DATA: QuantiFERON Gold came back being positive. ASSESSMENT: 1. Secondary spontaneous pneumothorax. 2. Pulmonary tuberculosis. DISCUSSION AND PLAN: I talked to the patient with a rod filler today. I gave him the option of going home and waiting this thing out, or staying in the hospital. He would like to stay in the hospital through the weekend and decide whether or not to go home next week. He can certainly go home with a Heimlich valve in place and we can bring him back with weekly chest x-rays. The chest tube can ultimately be removed once the pneumothorax has resolved. That being said, the new fever last night is alarming. We are not robustly covering gram positive organisms and he is certainly at increased risk of an empyema with indwelling catheter for a long period of time. Routine Gram stain culture of the pleural broth will need to be considered if he has increasing infection profile. That being said, I am going to repeat a chest x-ray on Tuesday. At that time, if the pneumothorax persists, we will revisit sending him home with the Heimlich valve in place. JULIUS
[2017-12-24] MEDS: Acetaminophen 325 MG TAB PO SCH ×6 (00:26→21:05)
[2017-12-24 04:55] LABS: Hemoglobin 7.5 g/dL (14.0-18.0); Mean Corpuscular HGB CONC 30.2 g/dL (32.0-36.0); Mean Corpuscular Hemoglobin 20.3 pg (27.0-31.0); Mean Platelet Volume 6.6 fL (7.4-10.4); Platelet Count 1206 thou/uL (130-400); RBC Distribution Width 16.8 % (11.5-14.5); Red Blood Cell (RBC) Count 3.69 mill/uL (4.70-6.10); White Blood Cell (WBC) Count 12.1 thou/uL (4.8-10.8)
[2017-12-24 05:07] LABS: Anion Gap 13 mmol/L (10-20); BUN (Urea Nitrogen) 21 mg/dL (8.4-25.7); Calc. Creatinine Clearance 103 mL/min (70-130); Carbon Dioxide 23 mmol/L (22-29); Chloride 104 mmol/L (98-107); Estimated GFR-MDRD Greater than 90; Glucose 89 mg/dL (70-105); Potassium 4.1 mmol/L (3.5-5.1); Sodium 136 mmol/L (136-145)
[2017-12-24 05:08] LABS: #Eosinphils 0.3 thou/uL (0.0-0.7); #Lymphocytes 1.9 thou/uL (1.20-3.40); #Monocytes 0.8 thou/uL (0.11-0.59); #Neutrophils 9.1 thou/uL (1.40-6.50); %Basophils 0.2 % (0.0-1.0); %Eosinophils 2.7 % (0.0-10.0); %Lymphocytes 15.3 % (21.0-51.0); %Monocytes 6.6 % (0.0-10.0); %Neutrophils 75.2 % (42.0-75.0); Hypochromia SLIGHT = 6-15 cells (100X) (0-5/hpf); MDiff Complete? YES; Microcytosis SLIGHT = 6-15 cells (100X) (0-5/hpf); PLT Morphology Comment Appears Increased
--- NOTE | 2017-12-24 06:21 | PDOC.FM ---
- Subjective Subjective: CC: none HPI: patient has no concerns. his happy he is staying in the hospital this weekend. Denies fever/chills. - Objective Vital Signs & Weight: Vital Signs (12 hours) Temp Pulse Resp BP Pulse Ox 12/24/17 02:33 98.1 F 12/24/17 00:23 98.9 F 12/23/17 20:19 100.2 F H 95 16 110/68 100 12/23/17 20:00 100 Weight Admit Weight 56.699 kg Weight 56.699 kg I&O: 12/22/17 12/23/17 12/24/17 06:59 06:59 06:59 Intake Total 480 480 200 Output Total 780 600 650 Balance -300 -120 -450 Result Diagrams: 12/24/17 03:51 12/24/17 03:51 <Felipe Lynch - Last Filed: 12/24/17 06:47> - Objective Vital Signs & Weight: Vital Signs (12 hours) Temp Pulse Resp BP Pulse Ox 12/24/17 08:00 98.1 F 78 16 99/63 100 12/24/17 02:33 98.1 F 12/24/17 00:23 98.9 F Weight Admit Weight 56.699 kg Weight 56.699 kg I&O: 12/23/17 12/24/17 12/25/17 06:59 06:59 06:59 Intake Total 480 200 Output Total 600 650 Balance -120 -450 Result Diagrams: 12/24/17 03:51 12/24/17 03:51 <Carlos Acuna - Last Filed: 12/24/17 10:25> Phys Exam - Physical Examination Constitutional: NAD HEENT: moist MMs, sclera anicteric Respiratory: no wheezing, clear to auscultation bilateral Cardiovascular: RRR, no significant murmur Gastrointestinal: soft, non-tender Neurological: non-focal, moves all 4 limbs Psychiatric: normal affect, A&O x 3 <Felipe Lynch - Last Filed: 12/24/17 06:47> Dx/Plan (1) Primary spontaneous pneumothorax Code(s): J93.11 - PRIMARY SPONTANEOUS PNEUMOTHORAX Status: Acute (2) Tuberculosis diagnosed by microscopy Code(s): A15.0 - TUBERCULOSIS OF LUNG Status: Acute - Plan Plan: Primary spontaneous pneumothorax 2/ to Primary Tubereculosis - continue chest tube with heimlich valve. -Repeat CXR on Tuesday. -Pulmonology consulted-Dr. Arriola- continue to follow recs -AFB Positive with cultures and sensitives pending. Dr. Sousa consulted- Placed on 4 drug therapy. Ethambutol, Isoniazid, Rifampin and Pyrazinamide on 12/16. Pyridoxin supplemented. -Plan for 6 mo of treatment Anemia Transfuse if less than 7 HLD -Continue fish oil Spinal cord compression - PT <Felipe Lynch - Last Filed: 12/24/17 06:47> Attending Addendum - Attending Addendum Date/Time: 12/24/17 1024 I personally evaluated the patient and discussed the management with Dr. Lynch. I agree with the History, Examination, Assessment and Plan documented above with any addition or exceptions noted below. Patient stable. No complaints. Continue current therapy for active TB infection. His reactive thrombocytosis has worsened and we will start ASA therapy this morning as antiplatelet agent until this improves. No other major changes to management. <Carlos Acuna - Last Filed: 12/24/17 10:25>
[2017-12-24] MEDS: Isoniazid 100 MG TAB PO SCH (08:41)
[2017-12-24] MEDS: Pyrazinamide 500 MG TAB PO SCH (08:42)
[2017-12-24] MEDS: Ferrous Sulfate 325 MG TAB PO SCH ×2 (08:42→18:28)
[2017-12-24] MEDS: Fish Oil 1,000 MG CAP PO SCH (08:42)
[2017-12-24] MEDS: Rifampin 300 MG CAP PO SCH (08:42)
[2017-12-24] MEDS: Ethambutol HCl 400 MG TAB PO SCH (08:42)
[2017-12-24] MEDS: Ascorbic Acid 500 mg Chewable Tablet PO SCH (08:42)
[2017-12-24] MEDS: pyridOXINE 50 MG (B6) TAB PO SCH (08:42)
[2017-12-24] MEDS: Enoxaparin Sodium 40 MG/0.4 ML SYRINGE SC SCH (08:43)
[2017-12-24] MEDS: Polyethylene Glycol 3350 17 GM Packet PER TUBE SCH ×2 (08:43→08:51)
[2017-12-24] MEDS ORDERED: Aspirin 325 mg Enteric Coated Tablet PO SCH (09:30)
[2017-12-25] MEDS: Acetaminophen 325 MG TAB PO SCH ×2 (01:37→05:49)
[2017-12-25] MEDS: Melatonin 3 MG TAB PO PRN ×2 (01:43→21:55)
--- NOTE | 2017-12-25 06:22 | PDOC.FM ---
- Subjective Subjective: CC: hot in room. HPI: States he was unable to sleep last night because of indigestion and his room is too hot. No other concerns. - Objective MAR Reviewed: Yes Vital Signs & Weight: Vital Signs (12 hours) Temp Pulse Resp BP Pulse Ox 12/24/17 20:00 97.7 F 73 18 101/62 100 Weight Admit Weight 56.699 kg Weight 56.699 kg I&O: 12/23/17 12/24/17 12/25/17 06:59 06:59 06:59 Intake Total 559 529 6899 Output Total 600 650 550 Balance -120 -450 585 Result Diagrams: 12/24/17 03:51 12/24/17 03:51 <Felipe Lynch - Last Filed: 12/25/17 07:06> - Objective Vital Signs & Weight: Vital Signs (12 hours) Temp Pulse Resp BP Pulse Ox 12/25/17 08:00 98.1 F 81 18 104/69 100 Weight Admit Weight 56.699 kg Weight 56.699 kg I&O: 12/24/17 12/25/17 12/26/17 06:59 06:59 06:59 Intake Total 200 1135 Output Total 650 550 Balance -450 585 Result Diagrams: 12/24/17 03:51 12/24/17 03:51 <Carlos Acuna - Last Filed: 12/25/17 10:09> Phys Exam - Physical Examination Constitutional: NAD HEENT: moist MMs, sclera anicteric Respiratory: no wheezing, clear to auscultation bilateral Cardiovascular: RRR, no significant murmur Gastrointestinal: soft, non-tender Musculoskeletal: no edema Neurological: non-focal, moves all 4 limbs Psychiatric: normal affect, A&O x 3 Skin: no rash, cap refill <2 seconds <Felipe Lynch - Last Filed: 12/25/17 07:06> Dx/Plan (1) Primary spontaneous pneumothorax Code(s): J93.11 - PRIMARY SPONTANEOUS PNEUMOTHORAX Status: Acute (2) Tuberculosis diagnosed by microscopy Code(s): A15.0 - TUBERCULOSIS OF LUNG Status: Acute - Plan Plan: Primary spontaneous pneumothorax 2/2 to Primary Tubereculosis - continue chest tube with heimlich valve. -Repeat CXR on Tuesday. -Pulmonology consulted-Dr. Arriola- continue to follow recs -AFB Positive with cultures and sensitives pending. Dr. Sousa consulted- Placed on 4 drug therapy. Ethambutol, Isoniazid, Rifampin and Pyrazinamide on 12/16. Pyridoxin supplemented. -Plan for 6 mo of treatment Thrombocytosis - started ASA yesterday - lab fast today. Anemia Transfuse if less than 7 HLD -Continue fish oil Spinal cord compression - PT <Felipe Lynch - Last Filed: 12/25/17 07:06> Attending Addendum - Attending Addendum Date/Time: 12/25/17 1008 I personally evaluated the patient and discussed the management with Dr. Lynch. I agree with the History, Examination, Assessment and Plan documented above with any addition or exceptions noted below. Patient doing well and stable at this time. Continue ASA for reactive thrombocytosis. Continue current mgmt of TB infection. <Carlos Acuna - Last Filed: 12/25/17 10:09>
[2017-12-25] MEDS: Polyethylene Glycol 3350 17 GM Packet PER TUBE SCH (08:03)
[2017-12-25] MEDS: Isoniazid 100 MG TAB PO SCH (08:04)
[2017-12-25] MEDS: Fish Oil 1,000 MG CAP PO SCH (08:05)
[2017-12-25] MEDS: Ascorbic Acid 500 mg Chewable Tablet PO SCH (08:05)
[2017-12-25] MEDS: Rifampin 300 MG CAP PO SCH (08:05)
[2017-12-25] MEDS: Aspirin 325 mg Enteric Coated Tablet PO SCH (08:05)
[2017-12-25] MEDS: Ferrous Sulfate 325 MG TAB PO SCH ×2 (08:05→16:38)
[2017-12-25] MEDS: Pyrazinamide 500 MG TAB PO SCH (08:05)
[2017-12-25] MEDS: pyridOXINE 50 MG (B6) TAB PO SCH (08:05)
[2017-12-25] MEDS: Ethambutol HCl 400 MG TAB PO SCH (08:05)
[2017-12-25] MEDS: Enoxaparin Sodium 40 MG/0.4 ML SYRINGE SC SCH (08:06)
[2017-12-25] MEDS: Calcium Carbonate 500 MG ChewTAB PO PRN (21:55)
--- NOTE | 2017-12-26 08:24 | PDOC.FM ---
- Subjective Subjective: Pt doing well. reports getting good sleep overnight. Reports having back pain but controlled with current pain regimen. Denies any acute events overnight. Denies any chest pain or SOB. Denies any fever or chills. Nurse denies any problems overnight. No other concerns at this time - Objective MAR Reviewed: Yes Vital Signs & Weight: Vital Signs (12 hours) Temp Pulse Resp BP Pulse Ox 12/26/17 08:00 98.1 F 75 18 101/65 99 Weight Admit Weight 56.699 kg Weight 56.699 kg I&O: 12/25/17 12/26/17 12/27/17 06:59 06:59 06:59 Intake Total 1135 200 Output Total 550 350 Balance 585 -150 Result Diagrams: 12/24/17 03:51 12/24/17 03:51 Radiology Reviewed by me: Yes (Official read of repeat C-xray pending today. Appears to be about the same ) <Hiren Blue - Last Filed: 12/26/17 08:22> - Objective Vital Signs & Weight: Vital Signs (12 hours) Temp Pulse Resp BP Pulse Ox 12/26/17 08:00 98.1 F 75 18 101/65 99 Weight Admit Weight 56.699 kg Weight 56.699 kg I&O: 12/25/17 12/26/17 12/27/17 06:59 06:59 06:59 Intake Total 1135 200 Output Total 550 350 Balance 585 -150 Result Diagrams: 12/24/17 03:51 12/24/17 03:51 <Harpreet Lynn - Last Filed: 12/26/17 10:36> Phys Exam - Physical Examination Constitutional: NAD HEENT: PERRLA, moist MMs Neck: no nodes, supple, full ROM Decreased breath sounds on left. Rales and crackles noted. Cardiovascular: RRR, no significant murmur, no rub Gastrointestinal: soft, non-tender, no distention, positive bowel sounds Musculoskeletal: no edema, pulses present Weakness in LE and UE due to spinal cord compression Lymphatic: no nodes Psychiatric: normal affect, A&O x 3 Skin: no rash, normal turgor, cap refill <2 seconds <Hiren Blue - Last Filed: 12/26/17 08:22> Dx/Plan (1) Tuberculosis diagnosed by microscopy Code(s): A15.0 - TUBERCULOSIS OF LUNG Status: Acute (2) Primary spontaneous pneumothorax Code(s): J93.11 - PRIMARY SPONTANEOUS PNEUMOTHORAX Status: Acute (3) HLD (hyperlipidemia) Code(s): E78.5 - HYPERLIPIDEMIA, UNSPECIFIED Status: Chronic Qualifiers: Hyperlipidemia type: unspecified Qualified Code(s): E78.5 - Hyperlipidemia , unspecified (4) Spinal cord compression Code(s): G95.20 - UNSPECIFIED CORD COMPRESSION Status: Chronic - Plan Plan: Primary spontaneous pneumothorax 2/2 to Primary Tubereculosis - continue chest tube with heimlich valve. -Repeat CXR official read pending. Appears to be stable from previous -Pulmonology consulted-Dr. Arriola- continue to follow recs -AFB Positive with cultures and sensitives pending. Dr. Sousa consulted- Placed on 4 drug therapy. Ethambutol, Isoniazid, Rifampin and Pyrazinamide on 12/16. Pyridoxin supplemented. -Plan for 6 mo of treatment Thrombocytosis - started ASA yesterday - Likely acute phase reactant to infection. -Will continue to check labs as needed. Anemia Transfuse if less than 7 -On Iron. Due to Tb infection likley. Continue to monitor. HLD -Continue fish oil Spinal cord compression - PT <Hiren Blue - Last Filed: 12/26/17 08:22> Attending Addendum - Attending Addendum Date/Time: 12/26/17 1028 I personally evaluated the patient and discussed the management with Dr. Blue I agree with the History, Examination, Assessment and Plan documented above with any addition or exceptions noted below. Note lab abnormality(presumed reactive Thrombocytosis) felt secondary to active tuberculosis Rec peripheral smear and hematology consult if platelet count continues to climb. Need to continue trending counts. Long standing history spinal cord injury continue rehab at bedside. Chest tube with noted leak stable at present with valve. 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 <Harpreet Lynn - Last Filed: 12/26/17 10:36>
[2017-12-26] MEDS: Rifampin 300 MG CAP PO SCH (09:00)
[2017-12-26] MEDS: pyridOXINE 50 MG (B6) TAB PO SCH (09:00)
[2017-12-26] MEDS: Isoniazid 100 MG TAB PO SCH (09:00)
[2017-12-26] MEDS: Ascorbic Acid 500 mg Chewable Tablet PO SCH (09:00)
[2017-12-26] MEDS: Ferrous Sulfate 325 MG TAB PO SCH ×2 (09:00→17:30)
[2017-12-26] MEDS: Fish Oil 1,000 MG CAP PO SCH (09:00)
[2017-12-26] MEDS: Pyrazinamide 500 MG TAB PO SCH (09:01)
[2017-12-26] MEDS: Ethambutol HCl 400 MG TAB PO SCH (09:01)
[2017-12-26] MEDS: Enoxaparin Sodium 40 MG/0.4 ML SYRINGE SC SCH (09:01)
[2017-12-26] MEDS: Aspirin 325 mg Enteric Coated Tablet PO SCH (09:01)
[2017-12-26] MEDS: Polyethylene Glycol 3350 17 GM Packet PER TUBE SCH (09:02)
--- NOTE | 2017-12-26 09:25 | PRG ---
DATE OF SERVICE: 12/26/2017 SERVICE: Pulmonary Medicine INTERVAL HISTORY: The patient is doing fine from a respiratory standpoint. There has been no interval change to his condition. He denies any chest pain, nausea, vomiting, fevers or chills. Otherwise, he remains in his usual state of health. He denies any shortness of breath. He is currently on room air. PHYSICAL EXAMINATION: VITAL SIGNS: Afebrile currently. His last temperature was on 12/22/2017. Since then, he has been afebrile once again. Pulse 75, blood pressure 101/65, respirations 18, saturation 99% on room air. GENERAL: The patient is awake and alert, in no apparent distress. LUNGS: Decent air entry. There is no prolonged expiratory phase. Rhonchi are present, particularly on the left. IMAGING: Chest x-ray demonstrates persistent air leak in the left lung. The chest tube is in good position. There is a small pneumothorax that is still present. ASSESSMENT: 1. Secondary spontaneous pneumothorax, (this is not a primary pneumothorax as it has a reason for being there). 2. Pulmonary tuberculosis. DISCUSSION AND PLAN: The leak is improving, but still persists. From my perspective, he is a candidate for transition home. He can go with a Heimlich valve in place. We will see him back on a weekly basis and will remove the chest tube in the outpatient setting once the leak and pneumothorax resolve. He understands that if he were to have a fever, or starts feeling worse, he needs to come back to the emergency department for additional investigation to make certain that his pleural space is not infected with typical pathogens. I will follow, intermittently, for now if the patient remains in house. JULIUS
--- NOTE | 2017-12-26 10:05 | RAD ---
PORTABLE AP CHEST: Date: 12/26/17 HISTORY: Follow-up evaluation. Thoracostomy tube in place. COMPARISON: 12/22/17. FINDINGS: Left-sided thoracostomy tube remains in place and unchanged in position. Small left-sided pneumothora x is again seen with associated pleural based density in the left upper lung zone and at the left harjeet g base. Cavitary lesions in each lung apex are again seen with adjacent parenchymal changes present. Scattered interstitial densities again seen bilaterally, greater on the left. Cardiac silhouette is w ithin normal limits. Osteopenia is present. IMPRESSION: 1. Left-sided thoracostomy tube, stable in position, with left-sided pneumothorax again present, ove rall similar to prior study. 2. Cavitary lesions each lung apex, larger in size on the right. 3. Stable scattered interstitial opacities, greater on the left. 4. Minimal pleural based densities along the left lateral upper chest and at the left lung base. 5. Osteopenia. 6. Subcutaneous emphysema, minimally improved from prior study. POS: MARIAH
[2017-12-26 11:48] LABS: Hemoglobin 7.4 g/dL (14.0-18.0); Mean Corpuscular HGB CONC 29.3 g/dL (32.0-36.0); Mean Corpuscular Hemoglobin 19.9 pg (27.0-31.0); Mean Corpuscular Volume 67.8 fL (78.0-98.0); Mean Platelet Volume 6.4 fL (7.4-10.4); Platelet Count 1223 thou/uL (130-400); RBC Distribution Width 17.8 % (11.5-14.5); Red Blood Cell (RBC) Count 3.71 mill/uL (4.70-6.10); White Blood Cell (WBC) Count 10.7 thou/uL (4.8-10.8)
[2017-12-26 11:52] LABS: Band 5 % (5-11); Eosinophils 4 % (0-10); Hypochromia SLIGHT = 6-15 cells (100X) (0-5/hpf); Lymphocytes 13 % (21-51); MDiff Complete? YES; Metamyelocyte 1 % (0-0); Microcytosis MODERATE=15-30 cells (100X) (0-5/hpf); Monocytes 8 % (0-10); Neutrophil 69 % (42-75); PLT Morphology Comment Appears Increased; Polychromasia MODERATE = 3-4 cells (100X) (0-2/hpf)
[2017-12-26] MEDS: Sodium Ferric Gluconate 250 MG in Sodium Chloride 0.9% 250 ML 250 ML IVPB SCH (18:06)
[2017-12-26] MEDS: Calcium Carbonate 500 MG ChewTAB PO PRN (20:06)
[2017-12-26] MEDS: Acetaminophen 325 MG TAB PO PRN (20:07)
[2017-12-26] MEDS: Melatonin 3 MG TAB PO PRN (21:20)
--- NOTE | 2017-12-27 02:40 | CON ---
DATE OF CONSULTATION: 12/26/2017 REASON FOR CONSULTATION: Thrombocytosis and anemia. HISTORY OF PRESENT ILLNESS: male with newly diagnosed active tuberculosis presents initially 2 weeks ago with a few weeks history of progressively worsening shortness of breath, cough, fevers, and night sweats. Patient also has a history of unknown spinal cord injury with quadriparesis. Patient reports shortness of breath that has dramatically improved since admission to the hospital. He initially presented and was found to have a large left-sided pneumothorax, which improved with a chest tube placement. CT scan after placement of the chest tube showed extensive bilateral lung disease including upper lobe cavitary lesions of multiple sizes with air fluid levels. These lesions worse suspicious for TB and so appropriate testing and isolation was conducted. Patient was then diagnosed with active TB and started on appropriate for drug antibiotic regimen. Since then, patient's symptoms have dramatically improved and he has minimal complaints today. Hematology was consulted for increasing thrombocytosis and worsening anemia. Patient's hemoglobin upon admission on 12/13/2017 was 11.9 and as of today, 12/26/2017, hemoglobin 7.4. Patient's MCV is 67.8. This is stable throughout admission. Platelets upon presentation to the hospital were 490 and have slowly trended up to 1223 as of today. Patient denies any prior history of anemia or thrombocytosis and denies any fevers, night sweats, or unexpected weight loss prior to this acute presentation. Also, denies any dizziness, lightheadedness, vision changes, pain or tingling in the hands and denies any family history of cancer or blood problems. Patient also denies any blood in the stool or any black, dark tarry stools. He denies any other bleeding. He is currently taking a full dose aspirin 325 mg once per day. Of note, patient is Wallisian- speaking only and translation is provided by his son at the bedside. REVIEW OF SYSTEMS: Ten-point review of systems negative except as per HPI. PAST MEDICAL HISTORY: Spinal cord injury with quadriparesis, hyperlipidemia. PAST SURGICAL HISTORY: None. FAMILY HISTORY: No family history of cancer or blood problems. SOCIAL HISTORY: Denies tobacco, alcohol, or drug use. Lives at home with his , he is wheelchair bound, but is able to use a walker at home. He has been in the [place] for 30 years, last in [place] in 2008. CURRENT MEDICATIONS: Reviewed. PHYSICAL EXAMINATION: VITAL SIGNS: Stable, currently afebrile, satting well on room air. GENERAL: Patient is awake and alert, in no acute distress, resting comfortably in bed. CARDIOVASCULAR: Normal S1, S2, regular rate and rhythm, no murmurs, rubs, or gallops. LUNGS: Some rhonchi are present on the left. Otherwise, clear to auscultation. ABDOMEN: Soft, nondistended, nontender. NEUROLOGIC: Patient is quadriplegic; however, he is able to lift his arms and legs off the bed, not against any resistance. PSYCHIATRIC: Awake, alert and oriented x3. LABORATORY DATA: Hemoglobin on 12/13/2017 of 11.9, on 12/17/2017 of 9.6, and of 7.4; MCV on 12/13 of 67.3 and 12/17 of 66.4 and on 12/26 of 67.8; platelets on 12/13 of 490, on 12/17 of 600, on 12/26 of 1223. Iron 8, TIBC 108 , percent iron saturation 7%, ferritin 892.02. Vitamin B12 of 585. RBC folate 1164. IMAGING DATA: CT chest without contrast dated 12/14/2017, [id number] left-sided pneumothorax with some shift of the heart and mediastinum to the right. Very extensive bilateral lung disease including upper lobe volume loss and bilateral upper lobe cavities as well as some smaller cavities in the right lower lobe with an air fluid level in the large right upper lobe cavity. Reactivation tuberculosis cannot be excluded and should certainly be evaluated with clinical and laboratory findings. Overall, increased density in the left lung when compared to the 12/13/2017 study, possibly representing some reexpansion of edema considering the severe earlier left lung atelectasis, also incidentally of 9.1 cm in diameter right upper pole renal cyst. IMAGING: Chest x-ray dated 12/26/2017, left-sided thoracostomy tube stable in position with left-sided pneumothorax again present overall similar to prior study. Cavitary lesions in each lung apex larger in size on the right. Stable scattered interstitial opacities greater on the left. Minimal pleural based densities along the left lateral upper chest and on the left lung base Osteopenia, subcutaneous emphysema minimally improved from prior study. ASSESSMENT AND PLAN: A 57-year-old male with newly diagnosed active tuberculosis found to have anemia and severe thrombocytosis. Patient's hemoglobin has trended down from 11.9 on admission, down to 7.4 today. Patient' s MCV is microcytic 67.8 with an elevated RDW of 17.8 and severe thrombocytosis with platelets initially of 490 on admission to the hospital now at 1223. These findings are very suggestive of a reactive thrombocytosis and anemia of chronic inflammation, due to low iron of 8, elevated ferritin of 892, with a low TIBC of 108. I do believe he has a component of iron deficiency as well given his percent saturation is only 7%. This would explain his severe microcytosis, which typically is normocytic in anemia of chronic disease; however, can sometimes be seen with mild microcytosis. Patient may also have thalassemia trait, which would explain such severe microcytosis in the setting of anemia of chronic inflammation. Iron deficiency itself can cause reactive thrombocytosis. When platelets are above 1000, patient's can have acquired von Willebrand disease which can increase the risk for bleeding in addition to clotting. Would recommend discontinuing aspirin and do not restart until platelets are less than 1000. I also recommend IV iron in order to improve patient's hemoglobin, which will in turn decrease patient's reactive thrombocytosis. I will order this to be done tomorrow morning. We will continue to follow this patient for improvement in his blood counts. Thank you for this consult JULIUS
[2017-12-27] MEDS: traMADol HCl 50 MG TAB PO PRN (02:48)
[2017-12-27] MEDS: Sodium Ferric Gluconate 250 MG in Sodium Chloride 0.9% 250 ML 250 ML IVPB SCH (05:49)
[2017-12-27] MEDS ORDERED: Ondansetron HCl/PF 4 MG/2 ML Vial IVP PRN (08:02)
[2017-12-27] MEDS ORDERED: Ondansetron ORAL SOLN. 4 MG/5 ML UDCUP PO PRN (08:02)
--- NOTE | 2017-12-27 08:02 | PDOC.FM ---
- Subjective Subjective: Pt reports having some diarrhea and stomach pain overnight. Reports sleeping okay. Denies any chest pain or SOB. Overall pt states he is doing well. Denies any leg pain or leg swelling. - Objective MAR Reviewed: Yes Vital Signs & Weight: Vital Signs (12 hours) Temp Pulse Resp BP Pulse Ox 12/26/17 20:07 98.1 F 84 18 111/70 93 L Weight Admit Weight 56.699 kg Weight 56.699 kg I&O: 12/26/17 12/27/17 12/28/17 06:59 06:59 06:59 Intake Total 200 1040 Output Total 350 500 Balance -150 540 Result Diagrams: 12/26/17 11:00 12/24/17 03:51 EKG Reviewed by me: Yes Radiology Reviewed by me: Yes (Air leak improving. Pneumothrorax stable) <Hiren Blue - Last Filed: 12/27/17 08:00> - Objective Vital Signs & Weight: Vital Signs (12 hours) Temp Pulse Resp BP Pulse Ox 12/27/17 08:00 97.6 F 85 20 96/60 99 Weight Admit Weight 56.699 kg Weight 56.699 kg I&O: 12/26/17 12/27/17 12/28/17 06:59 06:59 06:59 Intake Total 200 1040 Output Total 350 500 Balance -150 540 Result Diagrams: 12/27/17 09:18 12/24/17 03:51 <Harpreet Lynn - Last Filed: 12/27/17 11:41> Phys Exam - Physical Examination Constitutional: NAD HEENT: PERRLA, moist MMs Neck: no nodes, supple, full ROM Decreased breath sounds in left lung. some crackles noted Cardiovascular: RRR, no significant murmur, no rub Gastrointestinal: soft, non-tender, no distention, positive bowel sounds Musculoskeletal: no edema, pulses present No pain to palpation of LE. No sign of redness or swelling Has weakness in LE and UE due to spinal cord compression Psychiatric: normal affect, A&O x 3 Skin: no rash, normal turgor, cap refill <2 seconds <Hiren Blue - Last Filed: 12/27/17 08:00> Dx/Plan (1) Tuberculosis diagnosed by microscopy Code(s): A15.0 - TUBERCULOSIS OF LUNG Status: Acute (2) Primary spontaneous pneumothorax Code(s): J93.11 - PRIMARY SPONTANEOUS PNEUMOTHORAX Status: Acute (3) Thrombocytosis Status: Acute (4) Anemia in chronic illness Code(s): D63.8 - ANEMIA IN OTHER CHRONIC DISEASES CLASSIFIED ELSEWHERE Status : Acute (5) HLD (hyperlipidemia) Code(s): E78.5 - HYPERLIPIDEMIA, UNSPECIFIED Status: Chronic Qualifiers: Hyperlipidemia type: unspecified Qualified Code(s): E78.5 - Hyperlipidemia , unspecified (6) Spinal cord compression Code(s): G95.20 - UNSPECIFIED CORD COMPRESSION Status: Chronic - Plan Plan: Primary spontaneous pneumothorax 2/2 to Primary Tubereculosis - continue chest tube with heimlich valve. -CXR 12/26 shows improvment of air leak. Pneumothorax stable -Pulmonology consulted-Dr. Arriola- continue to follow recs -AFB Positive, Quant Gold Positive, with cultures and sensitives pending. Dr. Sousa consulted- Placed on 4 drug therapy. Ethambutol, Isoniazid, Rifampin and Pyrazinamide on 12/16. Pyridoxin supplemented. -Plan for 6 mo of treatment Thrombocytosis - elevated to 1226. Hem/Onc consulted- Dr. Hernandez. Will follow recs Have stopped ASA. Pt at risk of reactive von willebrand dz. Risk of clotting and bleeding. Will plan on IV iron infusion today to help with reactive thrombocytosis and anemia of chronic disease -Continue to trend. Anemia of Chronic Ds -Heme/Onc consulted- Follow recs -Has severe low iron at 7% resulting in microcytosis as would expect normocytic in anemia of chronic dz. -Plan for Iron infusion today to help improve hgb and decrease problem above. HLD -Continue fish oil Spinal cord compression - PT <Hiren Blue - Last Filed: 12/27/17 08:00> Attending Addendum - Attending Addendum Date/Time: 12/27/17 1140 I personally evaluated the patient and discussed the management with Dr. 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 <Harpreet Lynn - Last Filed: 12/27/17 11:41>
[2017-12-27] MEDS: Ascorbic Acid 500 mg Chewable Tablet PO SCH (08:05)
[2017-12-27] MEDS: pyridOXINE 50 MG (B6) TAB PO SCH (08:05)
[2017-12-27] MEDS: Ferrous Sulfate 325 MG TAB PO SCH ×2 (08:05→16:39)
[2017-12-27] MEDS: Fish Oil 1,000 MG CAP PO SCH (08:05)
[2017-12-27] MEDS: Pyrazinamide 500 MG TAB PO SCH (08:06)
[2017-12-27] MEDS: Rifampin 300 MG CAP PO SCH (08:06)
[2017-12-27] MEDS: Ethambutol HCl 400 MG TAB PO SCH (08:07)
[2017-12-27] MEDS: Enoxaparin Sodium 40 MG/0.4 ML SYRINGE SC SCH (08:15)
[2017-12-27] MEDS: Isoniazid 100 MG TAB PO SCH (08:20)
[2017-12-27 09:38] LABS: Hemoglobin 7.7 g/dL (14.0-18.0); Mean Corpuscular HGB CONC 30.8 g/dL (32.0-36.0); Mean Corpuscular Hemoglobin 20.8 pg (27.0-31.0); Mean Corpuscular Volume 67.6 fL (78.0-98.0); Mean Platelet Volume 6.3 fL (7.4-10.4); Platelet Count 1153 thou/uL (130-400); RBC Distribution Width 17.8 % (11.5-14.5); Red Blood Cell (RBC) Count 3.68 mill/uL (4.70-6.10); White Blood Cell (WBC) Count 10.1 thou/uL (4.8-10.8)
[2017-12-27 09:39] LABS: #Eosinphils 0.7 thou/uL (0.0-0.7); #Lymphocytes 1.5 thou/uL (1.20-3.40); #Monocytes 0.6 thou/uL (0.11-0.59); #Neutrophils 7.4 thou/uL (1.40-6.50); %Basophils 0.2 % (0.0-1.0); %Eosinophils 6.5 % (0.0-10.0); %Lymphocytes 14.7 % (21.0-51.0); %Monocytes 5.6 % (0.0-10.0)
--- NOTE | 2017-12-27 12:48 | PQF ---
CLINICAL DOCUMENTATION IMPROVEMENT CLARIFICATION FORM: ICD-10 Updated PLEASE DO AN ADDENDUM TO THE PROGRESS NOTE WITH ANY DOCUMENTATION UPDATES OR ADDITIONS AND CARRY THROUGH TO DC SUMMARY. THANK YOU. Date: 12/27/17- ATTN: DR. GRIMES / DR. HIDALGO Please exercise your independent, professional judgment in responding to the clarification form. Clinical indicators are provided on the bottom of this form for your review Please check appropriate box(s): [ x ] Protein Calorie Malnutrition: [ x ] Mild [ ] Moderate [ ] Severe [ ] Other Malnutrition (please specify) __ [ ] Underweight without malnutrition [ ] Cachexia [ ] Other diagnosis [ ] Unable to determine In addition, please specify: Present on Admission (POA): [ x ] Yes [ ] No [ ] Unable to determine CLINICAL INDICATORS - SIGNS / SYMPTOMS / LABS DIETARY CONSULT 12/14: "CLAVICLE MUSCLE WASTING NOTED" "EDEMA: 2+ PITTING" "PATIENT REPORTS OF POOR INTAKE FOR PAST 2-3 YEARS AND APPARENT 10LB UNINTENTIONAL WEIGHT LOSS COMPARED TO UBW." CONSULTATION NOTE 12/18: "SOME ELEMENT OF [place] WITH TEMPORAL MUSCLE WASTING" BMI 22.1 RISKS: CHRONIC RESPIRATORY ILLNESS WITH CAVITARY LESIONS INCOMPLETE QUADRIPLEGIA (PT CONSULT) TREATMENT: DIETARY CONSULT PER DIETARY RECOMMENDATIONS: CONSIDER LIBERALIZING TO REGULAR DIET IF PO INTAKE DOES NOT IMPROVE RECOMMENDATIONS FOR ENSURE ENLIVE TID CONSIDERATION OF APPETITE STIMULANT IF POOR PO INTAKE CONTINUES Moderate Malnutrition (in acute illness) Energy Intake: <75% of estimated energy requirement for > 7 days Weight Loss: 1-2%/1 week; 5%/ 1 month; 7.5%/3 months Other: mild body fat loss; mild muscle mass loss; mild fluid accumulation; Severe Malnutrition (in acute illness) Energy Intake: < 50% of estimated energy requirement for > 5 days Weight Loss: >1-2%/1 week; >5%/1 month; >7.5%/3 months Other: moderate body fat loss; moderate muscle mass loss; moderate- severe fluid accumulation; measurably reduced educational technology coordinator strength Moderate Malnutrition (in chronic illness) Energy Intake: <75% of estimated energy requirement for >1 month Weight Loss: 5%/1 month; 7.5%/3 months; 10%/6 months; 20%/1 year Other: mild body fat loss; mild muscle mass loss; mild fluid accumulation Severe Malnutrition (in chronic illness) Energy Intake: <75% of estimated energy requirement for >1 month Weight Loss: >5%/1 month; >7.5%/3 months; >10%/6 months; >20%/1 year Other: severe body fat loss; severe muscle mass loss; severe fluid accumulation ; measurably reduced educational technology coordinator strength (This form is maintained as a part of the permanent medical record) 2014 [employer] All Rights Reserved [email or web address] Office: [phone] [facility]
--- NOTE | 2017-12-27 13:06 | PQF ---
CLINICAL DOCUMENTATION IMPROVEMENT CLARIFICATION FORM: ICD-10 Updated PLEASE DO AN ADDENDUM TO THE PROGRESS NOTE WITH ANY DOCUMENTATION UPDATES OR ADDITIONS AND CARRY THROUGH TO DC SUMMARY. THANK YOU. DATE: 12/27/17 ATTN: DR. GRIMES Please exercise your independent, professional judgment in responding to the clarification form. Clinical indicators are provided on the bottom of this form for your review Please check appropriate box(s): [ ] Quadriplegia [x ] Functional Quadriplegia (specify underlying cause) [ ] Weakness (please specify anatomical area) Specify: [ ] Non dominant side [ ] Dominant side [ ] Other diagnosis [ ] Unable to determine In addition, please specify: Present on Admission (POA): [ x ] Yes [ ] No [ ] Unable to determine CLINICAL INDICATORS - SIGNS / SYMPTOMS / LABS NOTE 12/14 (PADMINI): "QUADRIPLEGIA SECONDARY TO REMOTE SPINAL CORD INJURY" NOTE 12/15: (ANIKET): "PATIENT REPORTS A H/O SOME FORM OF SPINAL CORD COMPRESSION THAT HAS LED TO HIM NOT BEING ABLE TO MOVE HIS ARMS OR LEGS MUCH AT ALL. HE STILL HAS FULL SENSATION." NOTE 12/23 (GWEN): "WEAKNESS IN LE/UE DUE TO CORD COMPRESSION INJURY. BEDRIDDEN" NOTE 12/26 (MANNY): "PATIENT IS QUADRIPLEGIC, HOWEVER; HE IS ABLE TO LIFT HIS ARMS AND LEGS OFF THE BED, NOT AGAINST RESISTANCE." RISKS: SPINAL CORD COMPRESSION TREATMENT: PT CONSULT FALL PRECAUTIONS TOTAL ASSISTANCE (PER NURSING ASSESSMENT 12/25) (This form is maintained as a part of the permanent medical record) 2014 [employer] All Rights Reserved JOHN [email or web address] Office: [phone] JULIUS
[2017-12-27] MEDS: Melatonin 3 MG TAB PO PRN (20:19)
[2017-12-27] MEDS: Acetaminophen 325 MG TAB PO PRN (22:39)
[2017-12-28 07:40] LABS: #Eosinphils 0.5 thou/uL (0.0-0.7); #Lymphocytes 1.3 thou/uL (1.20-3.40); #Monocytes 0.7 thou/uL (0.11-0.59); #Neutrophils 6.6 thou/uL (1.40-6.50); %Basophils 0.1 % (0.0-1.0); %Eosinophils 5.5 % (0.0-10.0); %Lymphocytes 14.2 % (21.0-51.0); %Monocytes 7.2 % (0.0-10.0)
--- NOTE | 2017-12-28 07:46 | PDOC.FM ---
- Subjective Subjective: Pt sleeping and resting upon entering the room. Reports doing well. Denies any problems overnight. Denies any chest pain or SOB. No acute events overnight. No sign of swelling or pain in his legs. No other concerns or questions at this time. - Objective MAR Reviewed: Yes Vital Signs & Weight: Vital Signs (12 hours) Temp Pulse Resp BP Pulse Ox 12/28/17 00:00 98.2 F 12/27/17 21:13 100.2 F H 92 20 102/68 95 12/27/17 20:19 95 Weight Admit Weight 56.699 kg Weight 56.699 kg I&O: 12/27/17 12/28/17 12/29/17 06:59 06:59 06:59 Intake Total 1040 600 Output Total 500 500 Balance 540 100 Result Diagrams: 12/27/17 09:18 12/24/17 03:51 Radiology Reviewed by me: Yes <Hiren Blue - Last Filed: 12/28/17 07:44> - Objective Vital Signs & Weight: Vital Signs (12 hours) Temp Pulse Resp BP Pulse Ox 12/28/17 08:00 98.0 F 81 18 100/66 99 12/28/17 00:00 98.2 F Weight Admit Weight 56.699 kg Weight 56.699 kg I&O: 12/27/17 12/28/17 12/29/17 06:59 06:59 06:59 Intake Total 1040 600 360 Output Total 500 500 Balance 540 100 360 Result Diagrams: 12/28/17 07:12 12/24/17 03:51 <Harpreet Lynn - Last Filed: 12/28/17 10:24> Phys Exam - Physical Examination Constitutional: NAD HEENT: PERRLA, moist MMs Neck: no nodes, supple, full ROM Rales and crackles noted on L. Side. Decreased breath sounds in LLL Cardiovascular: RRR, no significant murmur, no rub Gastrointestinal: soft, non-tender, no distention, positive bowel sounds Musculoskeletal: no edema, pulses present No pain to palpation of LE Has Weakness in UE and LE. Able to move but takes a lot of effort Psychiatric: normal affect, A&O x 3 Skin: no rash, normal turgor, cap refill <2 seconds <Hiren Blue - Last Filed: 12/28/17 07:44> Dx/Plan (1) Tuberculosis diagnosed by microscopy Code(s): A15.0 - TUBERCULOSIS OF LUNG Status: Acute (2) Pneumothorax on left Code(s): J93.9 - PNEUMOTHORAX, UNSPECIFIED Status: Acute (3) Thrombocytosis Status: Acute (4) Anemia in chronic illness Code(s): D63.8 - ANEMIA IN OTHER CHRONIC DISEASES CLASSIFIED ELSEWHERE Status : Acute (5) HLD (hyperlipidemia) Code(s): E78.5 - HYPERLIPIDEMIA, UNSPECIFIED Status: Chronic Qualifiers: Hyperlipidemia type: unspecified Qualified Code(s): E78.5 - Hyperlipidemia , unspecified (6) Spinal cord compression Code(s): G95.20 - UNSPECIFIED CORD COMPRESSION Status: Chronic - Plan Plan: Secondary pneumothorax 2/2 to Primary Tubereculosis - continue chest tube with heimlich valve. -CXR 12/26 shows improvment of air leak. Pneumothorax stable -Pulmonology consulted-Dr. Arriola- continue to follow recs -AFB Positive, Quant Gold Positive, with cultures and sensitives pending. Dr. Sousa consulted- Placed on 4 drug therapy. Ethambutol, Isoniazid, Rifampin and Pyrazinamide on 12/16. Pyridoxin supplemented. -Plan for 6 mo of treatment -Health department on board. Will continue to follow recs Thrombocytosis - elevated to 1226 yesterday. Trended down to 1153 yesterday. Lab results pending this AM Hem/Onc consulted- Dr. Hernandez. Will follow recs Have stopped ASA. Pt at risk of reactive von willebrand dz. Risk of clotting and bleeding. Had Iron Infusion yesterday 12/27. thrombocytosis and anemia of chronic disease -Continue to trend. Anemia of Chronic Ds -Heme/Onc consulted- Follow recs -Has severe low iron at 7% resulting in microcytosis as would expect normocytic in anemia of chronic dz. -Iron infusion yesterday 12/27 HLD -Continue fish oil Spinal cord compression - PT <Hiren Blue - Last Filed: 12/28/17 07:44> Attending Addendum - Attending Addendum Date/Time: 12/28/17 1020 I personally evaluated the patient and discussed the management with Dr. Blue I agree with the History, Examination, Assessment and Plan documented above with any addition or exceptions noted below. Will start looking into discharge options continue to trend plts count until stable appreciate hematology recommendations. <Harpreet Lynn - Last Filed: 12/28/17 10:24>
[2017-12-28] MEDS: Isoniazid 100 MG TAB PO SCH (08:09)
[2017-12-28] MEDS: Rifampin 300 MG CAP PO SCH (08:09)
[2017-12-28] MEDS: Fish Oil 1,000 MG CAP PO SCH (08:10)
[2017-12-28] MEDS: Ferrous Sulfate 325 MG TAB PO SCH ×2 (08:10→16:37)
[2017-12-28] MEDS: pyridOXINE 50 MG (B6) TAB PO SCH (08:10)
[2017-12-28] MEDS: Ethambutol HCl 400 MG TAB PO SCH (08:10)
[2017-12-28] MEDS: Pyrazinamide 500 MG TAB PO SCH (08:10)
[2017-12-28] MEDS: Ascorbic Acid 500 mg Chewable Tablet PO SCH (08:10)
[2017-12-28] MEDS: Enoxaparin Sodium 40 MG/0.4 ML SYRINGE SC SCH (08:11)
[2017-12-28 08:13] LABS: Hemoglobin 8.2 g/dL (14.0-18.0); Hypochromia SLIGHT = 6-15 cells (100X) (0-5/hpf); MDiff Complete? YES; Mean Corpuscular HGB CONC 29.8 g/dL (32.0-36.0); Mean Corpuscular Hemoglobin 20.4 pg (27.0-31.0); Mean Corpuscular Volume 68.6 fL (78.0-98.0); Mean Platelet Volume 6.2 fL (7.4-10.4); Microcytosis MODERATE=15-30 cells (100X) (0-5/hpf); PLT Morphology Comment Appears Increased; Platelet Count 1128 thou/uL (130-400); Polychromasia MODERATE = 3-4 cells (100X) (0-2/hpf); RBC Distribution Width 18.7 % (11.5-14.5); Red Blood Cell (RBC) Count 3.99 mill/uL (4.70-6.10)
--- NOTE | 2017-12-28 12:02 | RAD ---
CHEST ONE VIEW: HISTORY: Pneumothorax. COMPARISON: Prior day's study. FINDINGS: Left-sided chest tube remains unchanged in position. Left-sided pneumothorax appears stable. Some l eft-sided effusion is present. The right upper lobe parenchymal changes are also unchanged. IMPRESSION: Stable examination. POS: [facility]
[2017-12-28] MEDS: Docusate 100 MG CAP PO PRN (15:58)
--- NOTE | 2017-12-28 19:05 | PRG ---
DATE OF SERVICE: 12/28/2017 SERVICE: Pulmonary Medicine. INTERVAL HISTORY: The patient is doing fine from a respiratory standpoint. He is breathing comfortably. He has got a little bit of chest discomfort at chest tube insertion site. Otherwise, there has been no interval change to his condition. He had a low grade temperature of 100.2 today, but otherwise, he has been relatively asymptomatic. He is breathing comfortably. PHYSICAL EXAMINATION: VITAL SIGNS: Afebrile, pulse 81, blood pressure 100/66, respirations 18, saturation 99% on room air. GENERAL: The patient is awake, alert, in no apparent distress. LUNGS: Decent air entry. There is no prolonged expiratory phase. Rhonchi and crackles are present. No wheezing. HEART: Normal rate, regular. ABDOMEN: Soft, nontender, nondistended. Bowel sounds are positive. MUSCULOSKELETAL: No cyanosis or clubbing. No pitting in the bilateral lower extremities. NEUROLOGIC: Grossly nonfocal. LABORATORY DATA: WBC 9.0, hemoglobin 8.2. Basic metabolic profile from several days ago is completely unremarkable. IMAGING: Chest x-ray demonstrates bilateral parenchymal disease. There is also a persistent left-sided pleural effusion. The chest tubes in good position. ASSESSMENT: 1. Secondary spontaneous pneumothorax. 2. Pulmonary tuberculosis, DISCUSSION AND PLAN: The leak persists. Today when I have him cough, there is no air coming out of the Heimlich valve. Actually, comes out from around the chest tube at the chest wall insertion site. I will have a nursing replace the bandage over that area to see if we can get a better seal there. I returned the chest tube over to suction to see whether or not this helps the leak resolved. From my perspective, he is stable for transition home with nothing more than a Heimlich valve and the chest tube can be removed in the outpatient setting. I will continue to follow intermittently while the patient remains in house. JULIUS
[2017-12-28] MEDS: Melatonin 3 MG TAB PO PRN (21:02)
[2017-12-28] MEDS: traMADol HCl 50 MG TAB PO PRN (23:26)
[2017-12-29 07:55] LABS: #Eosinphils 0.5 thou/uL (0.0-0.7); #Lymphocytes 1.4 thou/uL (1.20-3.40); #Monocytes 0.6 thou/uL (0.11-0.59); #Neutrophils 5.8 thou/uL (1.40-6.50); %Basophils 0.4 % (0.0-1.0); %Eosinophils 6.4 % (0.0-10.0); %Lymphocytes 17.1 % (21.0-51.0); %Monocytes 6.9 % (0.0-10.0); %Neutrophils 69.2 % (42.0-75.0); Hemoglobin 8.5 g/dL (14.0-18.0); Mean Corpuscular HGB CONC 30.5 g/dL (32.0-36.0); Mean Corpuscular Hemoglobin 21.4 pg (27.0-31.0); Mean Platelet Volume 6.3 fL (7.4-10.4); Platelet Count 1054 thou/uL (130-400); RBC Distribution Width 19.9 % (11.5-14.5); Red Blood Cell (RBC) Count 3.97 mill/uL (4.70-6.10); White Blood Cell (WBC) Count 8.4 thou/uL (4.8-10.8)
[2017-12-29] MEDS: Enoxaparin Sodium 40 MG/0.4 ML SYRINGE SC SCH (08:16)
[2017-12-29] MEDS: Ethambutol HCl 400 MG TAB PO SCH (08:16)
[2017-12-29] MEDS: Pyrazinamide 500 MG TAB PO SCH (08:17)
[2017-12-29] MEDS: Rifampin 300 MG CAP PO SCH (08:17)
[2017-12-29] MEDS: Fish Oil 1,000 MG CAP PO SCH (08:17)
[2017-12-29] MEDS: pyridOXINE 50 MG (B6) TAB PO SCH (08:17)
[2017-12-29] MEDS: Isoniazid 100 MG TAB PO SCH (08:17)
[2017-12-29] MEDS: Ferrous Sulfate 325 MG TAB PO SCH ×2 (08:17→17:21)
[2017-12-29] MEDS: Ascorbic Acid 500 mg Chewable Tablet PO SCH (08:18)
--- NOTE | 2017-12-29 08:19 | PDOC.FM ---
- Subjective Subjective: Pt reports doing well. Denies any SOB. Denies any acute events overnight. Denies any fever or chills. reports having some epigastric pain and not having much of an appetite. Think this is probably due to the antibiotics. No other questions or concerns at this time. - Objective MAR Reviewed: Yes Vital Signs & Weight: Vital Signs (12 hours) Temp Pulse Resp BP Pulse Ox 12/29/17 07:36 98.1 F 89 18 97/61 98 Weight Admit Weight 56.699 kg Weight 56.699 kg I&O: 12/28/17 12/29/17 12/30/17 06:59 06:59 06:59 Intake Total 600 1140 Output Total 500 350 Balance 100 790 Result Diagrams: 12/29/17 07:24 12/24/17 03:51 Radiology Reviewed by me: Yes (stable exam compared to previous) <Hiren Blue - Last Filed: 12/29/17 08:16> - Objective Vital Signs & Weight: Vital Signs (12 hours) Temp Pulse Resp BP Pulse Ox 12/29/17 08:00 98 12/29/17 07:36 98.1 F 89 18 97/61 98 Weight Admit Weight 56.699 kg Weight 56.699 kg I&O: 12/28/17 12/29/17 12/30/17 06:59 06:59 06:59 Intake Total 600 1140 360 Output Total 500 350 Balance 100 790 360 Result Diagrams: 12/29/17 07:24 12/24/17 03:51 <Harpreet Lynn - Last Filed: 12/29/17 11:25> Phys Exam - Physical Examination Constitutional: NAD HEENT: PERRLA, moist MMs Neck: no nodes, supple Decreased breath sounds on left. Rales and crackles noted. Mild wheeze note Cardiovascular: RRR, no significant murmur, no rub Gastrointestinal: soft, non-tender, no distention, positive bowel sounds Musculoskeletal: no edema, pulses present Neurological: non-focal, moves all 4 limbs Moves all 4 limbs but weak. 4/5 strength Lymphatic: no nodes Psychiatric: normal affect, A&O x 3 <Hiren Blue - Last Filed: 12/29/17 08:16> Dx/Plan (1) Tuberculosis diagnosed by microscopy Code(s): A15.0 - TUBERCULOSIS OF LUNG Status: Acute (2) Pneumothorax on left Code(s): J93.9 - PNEUMOTHORAX, UNSPECIFIED Status: Acute (3) Thrombocytosis Status: Acute (4) Anemia in chronic illness Code(s): D63.8 - ANEMIA IN OTHER CHRONIC DISEASES CLASSIFIED ELSEWHERE Status : Acute (5) HLD (hyperlipidemia) Code(s): E78.5 - HYPERLIPIDEMIA, UNSPECIFIED Status: Chronic Qualifiers: Hyperlipidemia type: unspecified Qualified Code(s): E78.5 - Hyperlipidemia , unspecified (6) Spinal cord compression Code(s): G95.20 - UNSPECIFIED CORD COMPRESSION Status: Chronic - Plan Plan: Secondary pneumothorax 2/2 to Primary Tubereculosis - continue chest tube. Placed on suction while here still due to air leak. Can go home on heimlich valve when ready -CXR 12/28 shows stable exam compared to previous -Pulmonology consulted-Dr. Arriola- continue to follow recs -AFB Positive, Quant Gold Positive, with cultures and sensitives pending. Repeated cultures at this time to see how infectious patient still is as will need PT with home health when sent home Dr. Sousa consulted- Placed on 4 drug therapy. Ethambutol, Isoniazid, Rifampin and Pyrazinamide on 12/16. Pyridoxin supplemented. -Plan for 6 mo of treatment -Health department on board. Will continue to follow recs Thrombocytosis -Down to 1052 today. Still elevated. Continue to trend. Hem/Onc consulted- Dr. Hernandez. Will follow recs Have stopped ASA. Pt at risk of reactive von willebrand dz. Risk of clotting and bleeding. Had Iron Infusion 12/27. thrombocytosis and anemia of chronic disease -Continue to trend. Anemia of Chronic Ds -continuing to trend upwards. -Heme/Onc consulted- Follow recs -Has severe low iron at 7% resulting in microcytosis as would expect normocytic in anemia of chronic dz. -Iron infusion yesterday 12/27 HLD -Continue fish oil Spinal cord compression - PT <Hiren Blue - Last Filed: 12/29/17 08:16> Attending Addendum - Attending Addendum Date/Time: 12/29/17 1113 I personally evaluated the patient and discussed the management with Dr. Blue I agree with the History, Examination, Assessment and Plan documented above with any addition or exceptions noted below. Discussed care plan with son and patient regard discharge when [facility] can administer DOT at home and rehab at home for PT with his deconditioned status. <Harpreet Lynn - Last Filed: 12/29/17 11:25>
[2017-12-29 08:30] LABS: Hypochromia SLIGHT = 6-15 cells (100X) (0-5/hpf); PLT Morphology Comment Appears Increased; Polychromasia MODERATE = 3-4 cells (100X) (0-2/hpf)
[2017-12-29] MEDS: Docusate 100 MG CAP PO PRN (15:06)
[2017-12-29] MEDS ORDERED: cefTRIAXone\\ROCEPHIN 2 GM in Sodium Chloride 0.9% 100 ML IVPB SCH (18:00)
[2017-12-29] MEDS: traMADol HCl 50 MG TAB PO PRN (20:02)
--- NOTE | 2017-12-29 20:56 | PRG ---
DATE OF SERVICE: 12/29/2017 SUBJECTIVE: The patient is feeling a little better. He denies any headaches, no shortness of breath. Still has a chest tube in the left side. The patient cannot move his upper extremities. He says that this is a chronic problem he has had from more than 5 years. It is not clear what the reason for that, but that seems to be related to some issue that he had in the C-spine in the past. OBJECTIVE: VITAL SIGNS: T-max 100.2, blood pressure 197/61, pulse 89, respirations 18, O2 saturation 98%. GENERAL: He has a chest tube in the left side. EXTREMITIES: He is unable to lift his upper extremities from the bed. This seems to be a chronic problem that he relates to a C-spine process that he had in the past, not clear the nature of that process. There is obvious atrophy of the musculature of the arms bilaterally. No obvious inflammatory change in the shoulders. He is able to move the lower extremities and is able to move the hands, but he is diffusely weak. Pulses are 1+ in dorsalis pedis. LUNGS: Some rhonchi in the left side. There might be a little air leak noticeable on the left hemithorax. CARDIOVASCULAR: S1, S2, regular rate. ABDOMEN: Soft and not distended. LABORATORY DATA: White cell count 8.4, hemoglobin 8.5, platelets 1054, 69% neutrophils. Sodium 136, creatinine 0.64. The last transaminases were normal from 12/13/2017. culture result with E. coli retrieved from the pleural fluid and he has the acid fast positive cultures. The E. coli is in moderate amounts. ASSESSMENT AND DISCUSSION: A spontaneous pneumothorax with multiple cavitary lesions secondary to likely Mycobacterium tuberculosis on treatment and what appears to be a superimposed infection with E. coli retrieved from the pleural fluid with pending susceptibility studies. The patient has this chronic weakness in the upper extremities with severe atrophy of the muscles of the arms and may have a spinal lesion maybe C-spine stenosis and will need evaluation by MRI of the C-spine. He has an air leak, seems like he might be stable for transfer to home, but we will go ahead and put him on antimicrobial therapy now for this finding from the pleural fluid. Waiting on the susceptibilities of the organisms in preparation for discharge planning. [facility]ALTH[facility]il[facility]
[2017-12-29] MEDS: Melatonin 3 MG TAB PO PRN (23:15)
[2017-12-30] MEDS: traMADol HCl 50 MG TAB PO PRN ×2 (02:27→20:42)
--- NOTE | 2017-12-30 08:20 | PDOC.FM ---
- Subjective Subjective: Pt reports doing well. Denies any acute events overnight. Reports pain being well controlled. Denies any fever or chills. Reports stomach pain doing better. - Objective MAR Reviewed: Yes Vital Signs & Weight: Vital Signs (12 hours) Temp Pulse Resp BP Pulse Ox 12/30/17 07:58 98.3 F 83 16 97/63 100 Weight Admit Weight 56.699 kg Weight 56.699 kg I&O: 12/29/17 12/30/17 12/31/17 06:59 06:59 06:59 Intake Total 1140 900 Output Total 350 200 Balance 790 700 Result Diagrams: 12/29/17 07:24 12/24/17 03:51 Radiology Reviewed by me: Yes (12/28 Xray- stable exam) <Hiren Blue - Last Filed: 12/30/17 08:16> - Objective Vital Signs & Weight: Vital Signs (12 hours) Temp Pulse Resp BP Pulse Ox 12/30/17 08:00 100 12/30/17 07:58 98.3 F 83 16 97/63 100 Weight Admit Weight 56.699 kg Weight 56.699 kg I&O: 12/29/17 12/30/17 12/31/17 06:59 06:59 06:59 Intake Total 1140 900 240 Output Total 350 200 Balance 790 700 240 Result Diagrams: 12/30/17 08:32 12/24/17 03:51 <Harpreet Lynn - Last Filed: 12/30/17 11:06> Phys Exam - Physical Examination Constitutional: NAD HEENT: PERRLA, moist MMs Neck: no nodes, supple, full ROM Decreased breath sounds on the left. Crackles and rales noted Cardiovascular: RRR, no significant murmur, no rub Gastrointestinal: soft, non-tender, no distention, positive bowel sounds Musculoskeletal: no edema, pulses present Neurological: non-focal, normal sensation, moves all 4 limbs Lymphatic: no nodes Psychiatric: normal affect, A&O x 3 Skin: no rash, normal turgor, cap refill <2 seconds <Hiren Blue - Last Filed: 12/30/17 08:16> Dx/Plan (1) Tuberculosis diagnosed by microscopy Code(s): A15.0 - TUBERCULOSIS OF LUNG Status: Acute (2) Pneumothorax on left Code(s): J93.9 - PNEUMOTHORAX, UNSPECIFIED Status: Acute (3) Thrombocytosis Status: Acute (4) Anemia in chronic illness Code(s): D63.8 - ANEMIA IN OTHER CHRONIC DISEASES CLASSIFIED ELSEWHERE Status : Acute (5) HLD (hyperlipidemia) Code(s): E78.5 - HYPERLIPIDEMIA, UNSPECIFIED Status: Chronic Qualifiers: Hyperlipidemia type: unspecified Qualified Code(s): E78.5 - Hyperlipidemia , unspecified (6) Spinal cord compression Code(s): G95.20 - UNSPECIFIED CORD COMPRESSION Status: Chronic - Plan Plan: Secondary pneumothorax 2/2 to Primary Tubereculosis - continue chest tube. Placed on suction while here still due to air leak. Can go home on heimlich valve when ready -CXR 12/28 shows stable exam compared to previous -Pulmonology consulted-Dr. Arriola- continue to follow recs -AFB Positive, Quant Gold Positive, with cultures and sensitives pending. Repeated cultures at this time to see how infectious patient still is as will need PT with home health when sent home Dr. Sousa consulted- Placed on 4 drug therapy. Ethambutol, Isoniazid, Rifampin and Pyrazinamide on 12/16. Pyridoxin supplemented. -Plan for 6 mo of treatment -Health department on board. Will continue to follow recs -Got repeat cx in hope to get pt set up with PT/OT home health outpatient and show less infectious. Pleural fluid grew out E. coli. Sensitive to current tx. Probably can go home on oral abx. Thrombocytosis -Down to 1052 today. Still elevated. Continue to trend. Hem/Onc consulted- Dr. Riggs. Will follow recs Have stopped ASA. Pt at risk of reactive von willebrand dz. Risk of clotting and bleeding. Had Iron Infusion 12/27. -They are okay with patient going home. Think platelets and hgb will continue to stabilize thrombocytosis and anemia of chronic disease -Continue to trend. Anemia of Chronic Ds -continuing to trend upwards. -Heme/Onc consulted- Follow recs -Has severe low iron at 7% resulting in microcytosis as would expect normocytic in anemia of chronic dz. -Iron infusion 12/27 HLD -Continue fish oil Spinal cord compression - PT -KALE Sousa- recommends getting cervical spine MRI. Will get evaluation today to rule out lesion. <Hiren Blue - Last Filed: 12/30/17 08:16> Attending Addendum - Attending Addendum Date/Time: 12/30/17 1047 I personally evaluated the patient and discussed the management with Dr. Blue I agree with the History, Examination, Assessment and Plan documented above with any addition or exceptions noted below. Patient nearing maximum hospital benefit and arrangement being made for home DOT per public health for active TB. Patient with known progressive paresis questionable History suspicious for ? Arnold Chiari malformation will have imaging today. Due to long standing nature slowly progressive over last 12 years will await result of cervical and brain stem imaging MRI for any further consideration. <Harpreet Lynn - Last Filed: 12/30/17 11:06>
[2017-12-30] MEDS: pyridOXINE 50 MG (B6) TAB PO SCH (08:21)
[2017-12-30] MEDS: Ascorbic Acid 500 mg Chewable Tablet PO SCH (08:21)
[2017-12-30] MEDS: Ferrous Sulfate 325 MG TAB PO SCH ×2 (08:21→17:13)
[2017-12-30] MEDS: Fish Oil 1,000 MG CAP PO SCH (08:21)
[2017-12-30] MEDS: Isoniazid 100 MG TAB PO SCH (08:22)
[2017-12-30] MEDS: Pyrazinamide 500 MG TAB PO SCH (08:22)
[2017-12-30] MEDS: Ethambutol HCl 400 MG TAB PO SCH (08:22)
[2017-12-30] MEDS: Rifampin 300 MG CAP PO SCH (08:23)
[2017-12-30] MEDS: Enoxaparin Sodium 40 MG/0.4 ML SYRINGE SC SCH (08:23)
[2017-12-30 08:48] LABS: #Eosinphils 0.4 thou/uL (0.0-0.7); #Lymphocytes 1.7 thou/uL (1.20-3.40); #Monocytes 0.7 thou/uL (0.11-0.59); #Neutrophils 6.8 thou/uL (1.40-6.50); %Basophils 0.1 % (0.0-1.0); %Eosinophils 4.1 % (0.0-10.0); %Lymphocytes 17.5 % (21.0-51.0); %Monocytes 7.3 % (0.0-10.0); %Neutrophils 71.1 % (42.0-75.0); Mean Corpuscular HGB CONC 30.1 g/dL (32.0-36.0); Mean Corpuscular Hemoglobin 21.2 pg (27.0-31.0); Mean Corpuscular Volume 70.7 fL (78.0-98.0); Mean Platelet Volume 5.9 fL (7.4-10.4); Platelet Count 942 thou/uL (130-400); RBC Distribution Width 20.9 % (11.5-14.5); Red Blood Cell (RBC) Count 4.24 mill/uL (4.70-6.10); White Blood Cell (WBC) Count 9.5 thou/uL (4.8-10.8)
--- NOTE | 2017-12-30 10:39 | RAD ---
AP VIEW CHEST: 12/30/2017 HISTORY: Chest tube placement. COMPARISON: 12/28/2017 FINDINGS: AP view chest demonstrates a large caliber left-sided chest tube in place. The left-sided pneumothora x remains. The left lung demonstrates some visceral pleural thickening. Extensive bilateral interst itial fibrotic changes are also present. The left-sided pneumothorax has not significantly changed. IMPRESSION: Stable anterior-posterior view chest with large caliber left-sided chest tube and persistence of a le ft-sided pneumothorax, unchanged since the previous examination. POS: [facility]
--- NOTE | 2017-12-30 12:19 | PRG ---
DATE OF SERVICE: 12/30/2017 SERVICE: Pulmonary Medicine. INTERVAL HISTORY: The patient is doing great from a respiratory standpoint. He is breathing comfort ably. He has no chest discomfort. He did not have any fevers or chills overnight. Otherwise, there has been no interval change to his condition. The pleural broth was sampled yesterday. It appears that the patient has a little bit of E. coli growing in the pleural broth. That being said, he other moss feels fine. He is looking forward to hopefully getting out of here today or tomorrow. Chest tu be remains in place and is in good position. PHYSICAL EXAMINATION: VITAL SIGNS: Afebrile, pulse 83, blood pressure 97/63, respirations 16, saturation 100% on room air. GENERAL: The patient is awake and alert, in no apparent distress. LUNGS: Decent air entry. There is no prolonged expiratory phase or wheezing present. HEART: Normal rate and regular. ABDOMEN: Soft, nontender, nondistended. Bowel sounds are positive. MUSCULOSKELETAL: No cyanosis or clubbing. There is no pitting in the bilateral lower extremities. NEUROLOGIC: Grossly nonfocal. LABORATORY DATA: WBC 9.5 and stable, hemoglobin 9.0, platelets 942,000, which is down trending. E. coli is growing in the pleural broth collected on the . ASSESSMENT: 1. Secondary spontaneous pneumothorax. 2. Pulmonary tuberculosis, suspected. 3. Likely superinfection with Escherichia coli. DISCUSSION AND PLAN: I will see the patient back in clinic on a weekly basis with a chest x-ray. On ce the leak stops, he will be a candidate for removing the chest tube. This is a process that can ta ke some time. If he remains in house, Pulmonary will continue to follow, intermittently. Please giv e us a phone call if he develops any increasing respiratory distress.
[2017-12-30] MEDS: Melatonin 3 MG TAB PO PRN (23:19)
--- NOTE | 2017-12-31 06:30 | PDOC.FM ---
- Subjective Subjective: Pt reports still having some stomach pain at this time. Pt eating some but reports not having good appetite. Denies any sob. Denies any fever or chills. Denies any acute events overnight. Pain being well controlled but pt also states does not want to take a lot of pain medicine. - Objective MAR Reviewed: Yes Vital Signs & Weight: Vital Signs (12 hours) Temp Pulse Resp BP BP Pulse Ox 12/31/17 00:00 98.6 F 77 18 103/63 99/60 100 12/30/17 21:00 99.0 F 86 18 97/62 92 L 12/30/17 20:00 92 L Weight Admit Weight 56.699 kg Weight 56.699 kg I&O: 12/29/17 12/30/17 12/31/17 06:59 06:59 06:59 Intake Total 1140 900 600 Output Total 350 200 Balance 790 700 600 Result Diagrams: 12/30/17 08:32 12/24/17 03:51 Radiology Reviewed by me: Yes <Hiren Blue - Last Filed: 12/31/17 06:28> - Objective Vital Signs & Weight: Vital Signs (12 hours) Temp Pulse Resp BP BP Pulse Ox 12/31/17 07:40 97.7 F 85 16 103/68 97 12/31/17 00:00 98.6 F 77 18 103/63 99/60 100 Weight Admit Weight 56.699 kg Weight 56.699 kg I&O: 12/30/17 12/31/17 01/01/18 06:59 06:59 06:59 Intake Total 900 700 Output Total 200 650 Balance 700 50 Result Diagrams: 12/30/17 08:32 12/24/17 03:51 <Harpreet Lynn - Last Filed: 12/31/17 09:59> Phys Exam - Physical Examination Constitutional: NAD HEENT: PERRLA, moist MMs Neck: no nodes, supple, full ROM Crackles and rales on Left side. Decreased lung sounds in bases Cardiovascular: RRR, no significant murmur, no rub Gastrointestinal: soft, non-tender, no distention, positive bowel sounds Musculoskeletal: no edema, pulses present Neurological: moves all 4 limbs (Very weak when moving arms. 4/5 strength. Takes awhile to move) Lymphatic: no nodes Psychiatric: normal affect, A&O x 3 Skin: no rash, normal turgor, cap refill <2 seconds <Hiren Blue - Last Filed: 12/31/17 06:28> Dx/Plan (1) Tuberculosis diagnosed by microscopy Code(s): A15.0 - TUBERCULOSIS OF LUNG Status: Acute (2) Pneumothorax on left Code(s): J93.9 - PNEUMOTHORAX, UNSPECIFIED Status: Acute (3) Thrombocytosis Status: Acute (4) Anemia in chronic illness Code(s): D63.8 - ANEMIA IN OTHER CHRONIC DISEASES CLASSIFIED ELSEWHERE Status : Acute (5) HLD (hyperlipidemia) Code(s): E78.5 - HYPERLIPIDEMIA, UNSPECIFIED Status: Chronic Qualifiers: Hyperlipidemia type: unspecified Qualified Code(s): E78.5 - Hyperlipidemia , unspecified (6) Spinal cord compression Code(s): G95.20 - UNSPECIFIED CORD COMPRESSION Status: Chronic - Plan Plan: Secondary pneumothorax 2/2 to Primary Tubereculosis - continue chest tube. Placed on suction while here still due to air leak. Can go home on heimlich valve when ready -CXR 12/30 unchanged from previous exam. -Pulmonology consulted-Dr. Arriola- continue to follow recs -AFB Positive, Quant Gold Positive, with cultures and sensitives pending. Repeated cultures at this time to see how infectious patient still is as will need PT with home health when sent home Dr. Sousa consulted- Placed on 4 drug therapy. Ethambutol, Isoniazid, Rifampin and Pyrazinamide on 12/16. Pyridoxin supplemented. -Plan for 6 mo of treatment -Health department on board. Will continue to follow recs -Got repeat cx in hope to get pt set up with PT/OT home health outpatient and show less infectious. Pleural fluid grew out E. coli. Sensitive to current tx. Can go home on oral abx Thrombocytosis -Down to 942 today. Trending down Hem/Onc consulted- Dr. Riggs. Will follow recs Have stopped ASA. Pt at risk of reactive von willebrand dz. Risk of clotting and bleeding. Had Iron Infusion 12/27. -They are okay with patient going home. Think platelets and hgb will continue to stabilize thrombocytosis and anemia of chronic disease -Continue to trend. Anemia of Chronic Ds -continuing to trend upwards. -Heme/Onc consulted- Follow recs -Has severe low iron at 7% resulting in microcytosis as would expect normocytic in anemia of chronic dz. -Iron infusion 12/27 HLD -Continue fish oil Spinal cord compression -Pt reports having for last 8 years. Previous docs think something congenital. Weakness has gotten worse through the years. - PT -ID- Lars- recommends getting cervical spine MRI. C-spine MRI still pending. Rule out infectious lesion or worsening due to current disease <Hiren Blue - Last Filed: 12/31/17 06:28> Attending Addendum - Attending Addendum Date/Time: 12/31/17 0957 I personally evaluated the patient and discussed the management with Dr. Blue I agree with the History, Examination, Assessment and Plan documented above with any addition or exceptions noted below. Patient stable MRI not available at this time. <Harpreet Lynn - Last Filed: 12/31/17 09:59>
[2017-12-31] MEDS: Famotidine 20 MG TAB PO SCH ×2 (09:13→21:39)
[2017-12-31] MEDS: Ascorbic Acid 500 mg Chewable Tablet PO SCH (09:15)
[2017-12-31] MEDS: Ferrous Sulfate 325 MG TAB PO SCH ×2 (09:15→19:38)
[2017-12-31] MEDS: Pyrazinamide 500 MG TAB PO SCH (09:16)
[2017-12-31] MEDS: pyridOXINE 50 MG (B6) TAB PO SCH (09:16)
[2017-12-31] MEDS: Fish Oil 1,000 MG CAP PO SCH (09:16)
[2017-12-31] MEDS: Isoniazid 100 MG TAB PO SCH (09:17)
[2017-12-31] MEDS: Rifampin 300 MG CAP PO SCH (09:17)
[2017-12-31] MEDS: Enoxaparin Sodium 40 MG/0.4 ML SYRINGE SC SCH (09:18)
[2017-12-31] MEDS: Ethambutol HCl 400 MG TAB PO SCH (09:19)
--- NOTE | 2017-12-31 18:27 | MRI ---
MRI OF CERVICAL SPINE PERFORMED WITH AND WITHOUT CONTRAST ENHANCEMENT: 12/31/17 COMPARISON: An 02/14/17 study. HISTORY: Evaluation for Chiari. Patient has a history of active TB. Motion artifact rather significantly degrades detail on this examination. The appearance of the spine is very similar to the previous study. The tip of the odontoid process is superior to Leonard's line compatible with basilar invagination. This results in somewhat narrowed region of the foramen ma gnum. The cerebellar tips point towards the foramen magnum but no definite findings of Chiari. The cy stic dilatation of the cervical cord at the C1-2 level appears to be fairly similar to the previous e xam. Due to motion it is not as well appreciated as on the prior study but I do not appreciate a sign ificant degree of change. There appears to be some moderate canal narrowing at the C2-3 level and C3- 4. The cord below this level appears unremarkable. There is an exaggerated curvature to the cervical spine. IMPRESSION: Fairly stable overall examination. 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 No signs of any Chiari type malformation. The cerebellar tonsils appear to be in a fairly similar position to the prior examination. There is a focal syrinx which is at the C1-2 level. It appears to cause somewhat less cystic dilatation to the cored than was seen on the prior examination and makes the cord appear somewhat atrophic. This is the only real significant difference than on the previous exam. There is mild to moderate canal narrowing at C2-3 and C3-4. POS: [facility]
--- NOTE | 2018-01-01 07:36 | PDOC.FM ---
- Subjective Subjective: Pt doing well this morning. Denies any acute events overnight. Denies any fever or chills. Denies any SOB. Reports abdominal pain doing a little better. Is eating. No concerns from nursing overnight. - Objective MAR Reviewed: Yes Vital Signs & Weight: Vital Signs (12 hours) Temp Pulse Resp BP Pulse Ox 01/01/18 04:00 97.9 F 73 20 96/64 97 01/01/18 00:31 98.6 F 75 20 97/63 98 12/31/17 20:00 98.7 F 85 18 103/68 96 Weight Admit Weight 56.699 kg Weight 56.699 kg I&O: 12/31/17 01/01/18 01/02/18 06:59 06:59 06:59 Intake Total 700 1290 110 Output Total 650 353 370 Balance 50 937 -087 Result Diagrams: 12/30/17 08:32 12/24/17 03:51 Radiology Reviewed by me: Yes <Hiren Blue - Last Filed: 01/01/18 07:34> - Objective Vital Signs & Weight: Vital Signs (12 hours) Temp Pulse Resp BP BP Pulse Ox 01/01/18 08:36 97.7 F 86 16 102/66 99 01/01/18 04:00 97.9 F 73 20 96/64 97 01/01/18 00:31 98.6 F 75 20 97/63 98 Weight Admit Weight 56.699 kg Weight 56.699 kg I&O: 12/31/17 01/01/18 01/02/18 06:59 06:59 06:59 Intake Total 700 1290 110 Output Total 650 353 370 Balance 50 937 -596 Result Diagrams: 01/01/18 08:20 01/01/18 08:20 <Harpreet Lynn - Last Filed: 01/01/18 11:35> Phys Exam - Physical Examination Constitutional: NAD HEENT: PERRLA, moist MMs Neck: no nodes, supple, full ROM Crackles, rales noted on Left side, Decreased breath sounds Cardiovascular: RRR, no significant murmur, no rub Gastrointestinal: soft, non-tender, positive bowel sounds Musculoskeletal: no edema, pulses present Has generalized weakness, Strength 4/5. Takes awhile to move Lymphatic: no nodes Psychiatric: normal affect, A&O x 3 Skin: no rash, normal turgor, cap refill <2 seconds <Hiren Blue - Last Filed: 01/01/18 07:34> Dx/Plan (1) Tuberculosis diagnosed by microscopy Code(s): A15.0 - TUBERCULOSIS OF LUNG Status: Acute (2) Pneumothorax on left Code(s): J93.9 - PNEUMOTHORAX, UNSPECIFIED Status: Acute (3) Thrombocytosis Status: Acute (4) Anemia in chronic illness Code(s): D63.8 - ANEMIA IN OTHER CHRONIC DISEASES CLASSIFIED ELSEWHERE Status : Acute (5) HLD (hyperlipidemia) Code(s): E78.5 - HYPERLIPIDEMIA, UNSPECIFIED Status: Chronic Qualifiers: Hyperlipidemia type: unspecified Qualified Code(s): E78.5 - Hyperlipidemia , unspecified (6) Spinal cord compression Code(s): G95.20 - UNSPECIFIED CORD COMPRESSION Status: Chronic - Plan Plan: Secondary pneumothorax 2/2 to Primary Tubereculosis - continue chest tube. Placed on suction while here still due to air leak. Can go home on heimlich valve when ready -CXR 12/30 unchanged from previous exam. -Pulmonology consulted-Dr. Arriola- continue to follow recs -AFB Positive, Quant Gold Positive, with cultures and sensitives pending. Repeated cultures at this time to see how infectious patient still is as will need PT with home health when sent home Dr. Sousa consulted- Placed on 4 drug therapy. Ethambutol, Isoniazid, Rifampin and Pyrazinamide on 12/16. Pyridoxin supplemented. -Plan for 6 mo of treatment -Health department on board. Will continue to follow recs -Got repeat cx in hope to get pt set up with PT/OT home health outpatient and show less infectious. Pleural fluid grew out E. coli. Sensitive to current tx. Can go home on oral abx Thrombocytosis -Down to 942 today. Trending down. Will check CBC today Hem/Onc consulted- Dr. Riggs. Will follow recs Have stopped ASA. Pt at risk of reactive von willebrand dz. Risk of clotting and bleeding. Had Iron Infusion 12/27. -They are okay with patient going home. Think platelets and hgb will continue to stabilize. -Will want to follow up outpatient thrombocytosis and anemia of chronic disease -Continue to trend. Anemia of Chronic Ds -continuing to trend upwards. -Heme/Onc consulted- Follow recs -Has severe low iron at 7% resulting in microcytosis as would expect normocytic in anemia of chronic dz. -Iron infusion 12/27 HLD -Continue fish oil Spinal cord compression -Pt reports having for last 8 years. Previous docs think something congenital. Weakness has gotten worse through the years. - PT -ID- Lars- recommends getting cervical spine MRI. C-spine MRI still pending. Rule out infectious lesion or worsening due to current disease -MRI c-spine shows sryinx in cervical spine. Does show some atrophy of cord. Appear to be chronic changes. No sign of anything overtly acute at this time. <Hiren Blue - Last Filed: 01/01/18 07:34> Attending Addendum - Attending Addendum Date/Time: 01/01/18 0684 I personally evaluated the patient and discussed the management with Dr. Blue I agree with the History, Examination, Assessment and Plan documented above with any addition or exceptions noted below.Working on arrangement for dismissal to home MRI results noted. <Harpreet Lynn - Last Filed: 01/01/18 11:35>
[2018-01-01 08:47] LABS: #Eosinphils 0.3 thou/uL (0.0-0.7); #Lymphocytes 1.5 thou/uL (1.20-3.40); #Monocytes 0.6 thou/uL (0.11-0.59); #Neutrophils 5.9 thou/uL (1.40-6.50); %Basophils 0.3 % (0.0-1.0); %Eosinophils 3.4 % (0.0-10.0); %Lymphocytes 18.2 % (21.0-51.0); %Monocytes 6.6 % (0.0-10.0); %Neutrophils 71.6 % (42.0-75.0); Hemoglobin 9.8 g/dL (14.0-18.0); Mean Corpuscular HGB CONC 30.7 g/dL (32.0-36.0); Mean Corpuscular Hemoglobin 21.9 pg (27.0-31.0); Mean Corpuscular Volume 71.5 fL (78.0-98.0); Mean Platelet Volume 6.5 fL (7.4-10.4); Platelet Count 807 thou/uL (130-400); RBC Distribution Width 20.6 % (11.5-14.5); Red Blood Cell (RBC) Count 4.48 mill/uL (4.70-6.10); White Blood Cell (WBC) Count 8.3 thou/uL (4.8-10.8)
[2018-01-01 08:56] LABS: Anion Gap 11 mmol/L (10-20); BUN (Urea Nitrogen) 15 mg/dL (8.4-25.7); Calc. Creatinine Clearance 91 mL/min (70-130); Calcium 9.5 mg/dL (7.8-10.44); Carbon Dioxide 26 mmol/L (22-29); Chloride 100 mmol/L (98-107); Estimated GFR-MDRD Greater than 90; Glucose 106 mg/dL (70-105); Potassium 4.1 mmol/L (3.5-5.1); Sodium 133 mmol/L (136-145)
[2018-01-01] MEDS: Ferrous Sulfate 325 MG TAB PO SCH ×2 (08:56→16:35)
[2018-01-01] MEDS: Famotidine 20 MG TAB PO SCH ×2 (08:57→20:43)
[2018-01-01] MEDS: Fish Oil 1,000 MG CAP PO SCH (08:57)
[2018-01-01] MEDS: Enoxaparin Sodium 40 MG/0.4 ML SYRINGE SC SCH (08:57)
[2018-01-01] MEDS: Ascorbic Acid 500 mg Chewable Tablet PO SCH (08:57)
[2018-01-01] MEDS: Ethambutol HCl 400 MG TAB PO SCH (08:58)
[2018-01-01] MEDS: pyridOXINE 50 MG (B6) TAB PO SCH (08:58)
[2018-01-01] MEDS: Rifampin 300 MG CAP PO SCH (08:59)
[2018-01-01] MEDS: Isoniazid 100 MG TAB PO SCH (08:59)
[2018-01-01] MEDS: Pyrazinamide 500 MG TAB PO SCH (09:00)
[2018-01-01] MEDS: Melatonin 3 MG TAB PO PRN (22:48)
[2018-01-01] MEDS: Acetaminophen 325 MG TAB PO PRN (22:48)
[2018-01-02] MEDS: Ferrous Sulfate 325 MG TAB PO SCH ×2 (08:31→17:18)
[2018-01-02] MEDS: Famotidine 20 MG TAB PO SCH ×2 (08:31→20:54)
[2018-01-02] MEDS: pyridOXINE 50 MG (B6) TAB PO SCH (08:31)
[2018-01-02] MEDS: Ethambutol HCl 400 MG TAB PO SCH (08:31)
[2018-01-02] MEDS: Pyrazinamide 500 MG TAB PO SCH (08:32)
[2018-01-02] MEDS: Fish Oil 1,000 MG CAP PO SCH (08:32)
[2018-01-02] MEDS: Rifampin 300 MG CAP PO SCH (08:32)
[2018-01-02] MEDS: Isoniazid 100 MG TAB PO SCH (08:32)
[2018-01-02] MEDS: Ascorbic Acid 500 mg Chewable Tablet PO SCH (08:32)
[2018-01-02] MEDS: Enoxaparin Sodium 40 MG/0.4 ML SYRINGE SC SCH (08:33)
--- NOTE | 2018-01-02 10:13 | PRG ---
DATE OF SERVICE: 01/02/2018 SERVICE: Pulmonary Medicine. INTERVAL HISTORY: The patient is doing fine from a respiratory standpoint. He actually feels like h e is breathing much better. He feels much improved. He denies any chest pain, shortness of breath, fevers or chills. Otherwise, there has been no interval change to his condition. He has his chest t ube in place. It is to 20 cm of water suction. PHYSICAL EXAMINATION: VITAL SIGNS: Afebrile, pulse 83, blood pressure 120/80, respirations 20, saturation 100% on room air . GENERAL: Patient is awake and alert, in no apparent distress. LUNGS: Decent air entry. There is no prolonged expiratory phase or wheezing identified. HEART: Normal rate, regular. ABDOMEN: Soft, nontender, nondistended. Bowel sounds are positive. MUSCULOSKELETAL: No cyanosis or clubbing. There is no pitting in the bilateral lower extremities. NEUROLOGIC: Grossly nonfocal. IMAGING: C-spine MRI demonstrates stable findings including narrowing of the foramen magnum, and at the C2-C3 and C3-C4 level. Syrinx is causing cystic dilation, which appears to be slightly improved. ASSESSMENT: 1. Secondary spontaneous pneumothorax. 2. Pulmonary tuberculosis, suspected. 3. Empyema secondary to Escherichia coli. DISCUSSION AND PLAN: The patient is doing absolutely wonderful. His leak is improved significantly. I will repeat a chest x-ray tomorrow morning. We will continue to follow along while the patient r emains in-house. He can truthfully go home from the hospital with a chest tube in place. If that oc curs, we will arrange for him to see me once weekly on Fridays in the outpatient setting.
--- NOTE | 2018-01-02 10:52 | PDOC.FM ---
- Subjective Subjective: 57 yo M here with pneumothorax secondary to active TB. Chest tube currently in place on water seal. Pt today complains of no SOB or CP. He does complain of a feeling of needing to have a BM every 5-6 minutes with associated cramping pain. He denies bleeding or diarrhea. He has been taking mag citrate for constipation. There were no acute events over night. - Objective Vital Signs & Weight: Vital Signs (12 hours) Temp Pulse Resp BP BP Pulse Ox 01/02/18 08:40 97.5 F L 83 20 120/80 100 01/02/18 08:00 100 01/02/18 04:00 98.8 F 76 18 116/73 100 01/02/18 00:00 98.2 F 76 18 99/62 100 Weight Admit Weight 56.699 kg Weight 56.699 kg I&O: 01/01/18 01/02/18 01/03/18 06:59 06:59 06:59 Intake Total 1290 1740 240 Output Total 353 2024 100 Balance 937 -285 140 Result Diagrams: 01/01/18 08:20 01/01/18 08:20 <Chidi Humphrey - Last Filed: 01/02/18 10:50> - Objective Vital Signs & Weight: Vital Signs (12 hours) Temp Pulse Resp BP BP Pulse Ox 01/02/18 08:40 97.5 F L 83 20 120/80 100 01/02/18 08:00 100 01/02/18 04:00 98.8 F 76 18 116/73 100 01/02/18 00:00 98.2 F 76 18 99/62 100 Weight Admit Weight 56.699 kg Weight 56.699 kg I&O: 01/01/18 01/02/18 01/03/18 06:59 06:59 06:59 Intake Total 1290 1740 240 Output Total 353 2024 100 Balance 937 -285 140 Result Diagrams: 01/01/18 08:20 01/01/18 08:20 <Kirill Chu - Last Filed: 01/02/18 11:18> Phys Exam - Physical Examination Constitutional: NAD HEENT: PERRLA, moist MMs Neck: no nodes, no JVD Respiratory: clear to auscultation bilateral L side chest tube in place on water seal Cardiovascular: RRR, no significant murmur Gastrointestinal: soft, positive bowel sounds Mild TTP LLQ Musculoskeletal: no edema Neurological: non-focal, moves all 4 limbs Psychiatric: normal affect, A&O x 3 Skin: no rash <Chidi Humphrey - Last Filed: 01/02/18 10:50> Dx/Plan (1) Anemia in chronic illness Code(s): D63.8 - ANEMIA IN OTHER CHRONIC DISEASES CLASSIFIED ELSEWHERE Status : Acute (2) Pneumothorax on left Code(s): J93.9 - PNEUMOTHORAX, UNSPECIFIED Status: Acute (3) Tuberculosis diagnosed by microscopy Code(s): A15.0 - TUBERCULOSIS OF LUNG Status: Acute (4) HLD (hyperlipidemia) Code(s): E78.5 - HYPERLIPIDEMIA, UNSPECIFIED Status: Chronic Qualifiers: Hyperlipidemia type: unspecified Qualified Code(s): E78.5 - Hyperlipidemia , unspecified (5) Spinal cord compression Code(s): G95.20 - UNSPECIFIED CORD COMPRESSION Status: Chronic - Plan Plan: Secondary pneumothorax 2/2 to Primary Tubereculosis - continue chest tube. Placed on suction while here still due to air leak. Can go home on heimlich valve when ready -CXR 12/30 unchanged from previous exam. -Pulmonology consulted-Dr. Arriola recommends weekly follow up until chest tube dc -AFB Positive, Quant Gold Positive, with cultures and sensitives pending. Repeated cultures at this time to see how infectious patient still is as will need PT with home health when sent home Dr. Sousa consulted- Placed on 4 drug therapy. Ethambutol, Isoniazid, Rifampin and Pyrazinamide on 12/16. Pyridoxin supplemented. -Plan for 6 mo of treatment -Health department on board. Will continue to follow recs - Pleural fluid grew out E. coli. Sensitive to current tx. Can go home on oral abx Deconditioning - Pt being evaluated for swing bed vs home with PT. - Case management has been consulted for placement. Once this is complete he will be ready for dc Thrombocytosis Hem/Onc consulted- Dr. Riggs. Will follow recs. They have stopped ASA. Pt at risk of reactive von willebrand dz. Risk of clotting and bleeding. Had Iron Infusion 12/27. - Follow up outpt Anemia of Chronic Ds -stabl e -Heme/Onc consulted- Follow recs -Iron infusion 12/27 HLD -Continue fish oil Spinal cord compression -Pt reports having for last 8 years. Previous docs think something congenital. Weakness has gotten worse through the years. - PT -MRI per ID recs. No donavan infection. Overall stable MRI. Does show cervical compression Dispo: Pt ready for dc when outpt placement is established. 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 Hmuphrey. I agree with the History, Examination, Assessment and Plan documented above with any addition or exceptions noted below. <Kirill Chu - Last Filed: 01/02/18 11:18>
[2018-01-02] MEDS: Acetaminophen 325 MG TAB PO PRN (20:54)
[2018-01-02] MEDS: Melatonin 3 MG TAB PO PRN (22:48)
[2018-01-03] MEDS: Acetaminophen 325 MG TAB PO PRN (02:37)
[2018-01-03] MEDS: Pyrazinamide 500 MG TAB PO SCH (08:36)
[2018-01-03] MEDS: Ferrous Sulfate 325 MG TAB PO SCH (08:36)
[2018-01-03] MEDS: Fish Oil 1,000 MG CAP PO SCH (08:38)
[2018-01-03] MEDS: Ethambutol HCl 400 MG TAB PO SCH (08:38)
[2018-01-03] MEDS: pyridOXINE 50 MG (B6) TAB PO SCH (08:38)
[2018-01-03] MEDS: Famotidine 20 MG TAB PO SCH (08:38)
[2018-01-03] MEDS: Ascorbic Acid 500 mg Chewable Tablet PO SCH (08:40)
[2018-01-03] MEDS: Isoniazid 100 MG TAB PO SCH (08:40)
[2018-01-03] MEDS: Rifampin 300 MG CAP PO SCH (08:40)
[2018-01-03] MEDS: Enoxaparin Sodium 40 MG/0.4 ML SYRINGE SC SCH (08:42)
--- NOTE | 2018-01-03 08:52 | RAD ---
AP VIEW CHEST: Date: 01/03/18 INDICATION: Chest tube. COMPARISON: Prior study dated 12/30/17. FINDINGS: Left-sided hydropneumothorax is unchanged. Left-sided thoracostomy tube is stable. Chronic lung lu es are similar. No acute osseous abnormality is evident. There is improvement in the left chest wall subcutaneous edema. IMPRESSION: 1. Stable small left hydropneumothorax. 2. Stable chronic lung changes with bullous disease of lung apices. 3. Improving left chest wall subcutaneous emphysema. 4. Stable left-sided thoracostomy tube. POS: [facility]
[2018-01-03] MEDS ORDERED: Polyethylene Glycol 3350 17 GM Packet PO SCH (09:00)
--- NOTE | 2018-01-03 09:08 | PDOC.FM ---
- Subjective Subjective: Pt found resting comfortably in bed. He denies SOB or chest pain. Yesterday afternoon he states that he was having trouble having a BM and was having some cramping. He did have a BM over night and states that his pain is somewhat improved today. CM is currently waiting on approval for a bed at [facility] for swing bed - Objective MAR Reviewed: Yes Vital Signs & Weight: Weight Admit Weight 56.699 kg Weight 56.699 kg I&O: 01/02/18 01/03/18 01/04/18 06:59 06:59 06:59 Intake Total 1740 840 Output Total 2024 100 Balance -285 740 Result Diagrams: 01/01/18 08:20 01/01/18 08:20 Phys Exam - Physical Examination Constitutional: NAD HEENT: PERRLA, moist MMs Neck: no nodes, no JVD Decreased sounds on L with rales Cardiovascular: RRR, no significant murmur Gastrointestinal: soft, non-tender, no distention Musculoskeletal: no edema, pulses present Neurological: non-focal, normal sensation, moves all 4 limbs Lymphatic: no nodes Psychiatric: normal affect, A&O x 3 Skin: no rash, normal turgor Dx/Plan (1) Anemia in chronic illness Code(s): D63.8 - ANEMIA IN OTHER CHRONIC DISEASES CLASSIFIED ELSEWHERE Status : Acute (2) Pneumothorax on left Code(s): J93.9 - PNEUMOTHORAX, UNSPECIFIED Status: Acute (3) Tuberculosis diagnosed by microscopy Code(s): A15.0 - TUBERCULOSIS OF LUNG Status: Acute (4) HLD (hyperlipidemia) Code(s): E78.5 - HYPERLIPIDEMIA, UNSPECIFIED Status: Chronic Qualifiers: Hyperlipidemia type: unspecified Qualified Code(s): E78.5 - Hyperlipidemia , unspecified (5) Spinal cord compression Code(s): G95.20 - UNSPECIFIED CORD COMPRESSION Status: Chronic (6) Constipation Code(s): K59.00 - CONSTIPATION, UNSPECIFIED Status: Acute - Plan Plan: Secondary pneumothorax 2/2 to Primary Tubereculosis - continue chest tube. Placed on suction while here still due to air leak. Can go home on heimlich valve when ready -CXR 01/03 unchanged from previous exam. -Pulmonology consulted-Dr. Arriola recommends weekly follow up until chest tube dc -AFB Positive, Quant Gold Positive, with cultures and sensitives pending. Repeated cultures at this time to see how infectious patient still is as will need PT with home health when sent home Dr. Sousa consulted- Placed on 4 drug therapy. Ethambutol, Isoniazid, Rifampin and Pyrazinamide on 12/16. Pyridoxin supplemented. -Plan for 6 mo of treatment -Health department on board. Will continue to follow recs - Pleural fluid grew out E. coli. Sensitive to current tx. Can go home on oral abx Deconditioning - Pt being evaluated for swing bed, waiting approval today Thrombocytosis Hem/Onc consulted- Dr. Riggs. Will follow recs. They have stopped ASA. Pt at risk of reactive von willebrand dz. Risk of clotting and bleeding. Had Iron Infusion 12/27. - Follow up outpt Anemia of Chronic Ds -stable -Heme/Onc consulted- Follow recs -Iron infusion 12/27 HLD -Continue fish oil Spinal cord compression -Pt reports having for last 8 years. Previous docs think something congenital. Weakness has gotten worse through the years. - PT -MRI per ID recs. No donavan infection. Overall stable MRI. Does show cervical compression Dispo: ready for DC pending placement
--- NOTE | 2018-01-03 11:37 | PRG ---
DATE OF SERVICE: 01/03/2018 Mr. Gregg is currently undergoing treatment for active pulmonary tuberculosis. He has a chest tube in place from a previous spontaneous pneumothorax, likely related to the tuberculosis. We are awaiti ng placement. Otherwise, he is ready for discharge to continue treatment as an outpatient.
[2018-01-03 15:42] VITALS: BP 113/74; TEMP 97.6
== END 2018-01-03 15:36 | disposition swing bed (61) | DRG 177 ==
LOC: ERS 12:53 → T4-B 17:00
PROVIDERS: ADMIT Family Medicine; ATTEND Family Medicine
PROC: 0W9B00Z Drainage of Left Pleural Cavity with Drainage Device, Open Approach (ICD-10-PCS; principal; 2017-12-17)
DX: A15.0 Tuberculosis of lung (principal); J96.00 Acute respiratory failure, unspecified whether with hypoxia or hypercapnia; R53.2 Functional quadriplegia; J86.0 Pyothorax with fistula; A31.8 Other mycobacterial infections; E44.1 Mild protein-calorie malnutrition; E78.5 Hyperlipidemia, unspecified; T14.8XXS Other injury of unspecified body region, sequela; R60.0 Localized edema; K59.00 Constipation, unspecified; D63.8 Anemia in other chronic diseases classified elsewhere; D47.3 Essential (hemorrhagic) thrombocythemia; B96.20 Unspecified Escherichia coli [E. coli] as the cause of diseases classified elsewhere
CPT/HCPCS: 36415; 36416; 71045; 71250; 72156; 80048; 80053; 80061; 81003; 81015; 82274; 82607; 82728; 82747; 83540; 83550; 83605; 83880; 85025; 85060; 86480; 87040; 87070; 87077; 87086; 87102; 87116; 87186; 87205; 87206; 87389; 89220; 93005; 94640; 94760; 96374; A4216; G8978-GP-CL; G8978-GP-CM; G8978-GP-CN; G8979-GP-CI; G8979-GP-CK; G8979-GP-CL; J1650; J1885; J2001; J2405; J2916; J7050; J7620

== ENCOUNTER 2018-01-13 01:25 | Emergency (ER) | payer MEDICARE ==
[2018-01-13] MEDS ORDERED: Morphine 4 MG/ML VIAL ONE (02:36)
[2018-01-13 02:50] LABS: Hemoglobin 10.6 g/dL (14.0-18.0); Mean Corpuscular HGB CONC 30.9 g/dL (32.0-36.0); Mean Corpuscular Hemoglobin 22.6 pg (27.0-31.0); Mean Platelet Volume 7.5 fL (7.4-10.4); Platelet Count 426 thou/uL (130-400); RBC Distribution Width 19.5 % (11.5-14.5); Red Blood Cell (RBC) Count 4.71 mill/uL (4.70-6.10); White Blood Cell (WBC) Count 8.8 thou/uL (4.8-10.8)
[2018-01-13 02:58] LABS: ALT (SGPT) 12 U/L (8-55); AST (SGOT) 23 U/L (5-34); Albumin 3.1 g/dL (3.5-5.0); Alkaline Phosphatase 111 U/L (40-150); Anion Gap 13 mmol/L (10-20); BUN (Urea Nitrogen) 18 mg/dL (8.4-25.7); Bilirubin, Total 0.5 mg/dL (0.2-1.2); Calc. Creatinine Clearance 0 mL/min (70-130); Calcium 10.4 mg/dL (7.8-10.44); Carbon Dioxide 24 mmol/L (22-29); Chloride 101 mmol/L (98-107); Estimated GFR-MDRD Greater than 90; Glucose 99 mg/dL (70-105); Lipase 32 U/L (8-78); Potassium 3.8 mmol/L (3.5-5.1); Protein, Total 8.1 g/dL (6.0-8.3); Sodium 134 mmol/L (136-145)
[2018-01-13 03:05] LABS: #Basophils 0.1 thou/uL (0.0-0.2); #Eosinphils 0.9 thou/uL (0.0-0.7); #Lymphocytes 1.4 thou/uL (1.20-3.40); #Monocytes 0.7 thou/uL (0.11-0.59); #Neutrophils 5.8 thou/uL (1.40-6.50); %Basophils 0.6 % (0.0-1.0); %Eosinophils 9.9 % (0.0-10.0); %Lymphocytes 15.6 % (21.0-51.0); %Monocytes 7.8 % (0.0-10.0); %Neutrophils 66.1 % (42.0-75.0)
--- NOTE | 2018-01-13 08:05 | RAD ---
PORTABLE CHEST 1 VIEW: Date: 01/13/18 Time: 0558 hours HISTORY: Dyspnea. FINDINGS/IMPRESSION: Comparison made with exam of 01/10/18. Left-sided chest tube remains in place. The heart size is normal. A small left pleural effusion is ag ain seen. There is pulmonary vascular congestion. Chronic changes in the upper lung pang are again seen. No definite pneumothorax identified. POS: [facility]
--- NOTE | 2018-01-13 08:18 | RAD ---
LUMBAR SPINE 3 VIEWS: Date: 01/13/18 HISTORY: Low back pain. FINDINGS: There are five lumbar-type vertebra. A transitional vertebra is seen. Degenerative changes are presen t. There is mild retrolisthesis of L4 over L5 vertebral bodies. No compression fracture or bony destr uction is identified. IMPRESSION: Lumbar spondylosis. POS: [facility]
--- NOTE | 2018-01-13 09:01 | ULT ---
PRELIMINARY REPORT/[facility]/EMERGENTY AFTER-HOURS PROCEDURE US Duplex Left Lower Extremity Veins CLINICAL HISTORY: 57 years old, male; Signs and symptoms and abnormal findings; Abnormal lab test; Elevated ddimer; Eduardo ma, localized; Lower extremity, left TECHNIQUE: Real-time duplex ultrasound scan of the left lower extremity veins integrating B-mode two dimensional vascular structure, Doppler spectral analysis, color flow Doppler imaging and compression. COMPARISON: No relevant prior studies available. FINDINGS: Deep veins: No acute findings. No DVT in the common femoral, femoral, popliteal, visualized calf vein s. The veins demonstrate normal color flow, are normally compressible, with normal phasic flow and/or augmentation response. Superficial veins: No acute findings. No thrombus in the visualized great saphenous vein. Soft tissues: No popliteal cyst. Calf edema. IMPRESSION: No deep venous thrombosis. Thank you for allowing us to participate in the care of your patient. Dictated and Authenticated by: Easton Samuel MD 01/13/2018 4:10 AM Central Time ([place] & [place]) FINAL REPORT VENOUS DUPLEX SONOGRAM LEFT LOWER EXTREMITY: Date: 01/13/18 HISTORY: Left leg pain and edema. FINDINGS/IMPRESSION: Findings agree with the preliminary report by [facility]. No sonographic evidence of deep venous thrombosis in the left lower extremity. POS: [facility]
--- NOTE | 2018-01-14 17:13 | EKG ---
Test Reason : BACK PAIN Blood Pressure : / mmHG Vent. Rate : 071 BPM Atrial Rate : 071 BPM P-R Int : 166 ms QRS Dur : 086 ms QT Int : 386 ms P-R-T Axes : 023 -08 029 degrees QTc Int : 419 ms Normal sinus rhythm Septal infarct , age undetermined Abnormal ECG Confirmed by MILDRED GALICIA ([id number]), fashion editor TONY TABARES ([id number]) on 01/14/2018 5:12:50 PM Referred By: Confirmed By:MILDRED GALICIA
== END 2018-01-13 05:24 | disposition home or self-care (01) ==
LOC: EEVIPCON 01:25 → ERS 01:25
DX: G89.29 Other chronic pain (principal); A15.9 Respiratory tuberculosis unspecified; R60.0 Localized edema; M54.9 Dorsalgia, unspecified; Z86.73 Personal history of transient ischemic attack (TIA), and cerebral infarction without residual deficits
CPT/HCPCS: 71045; 72100; 80053; 83690; 85025; 85379; 93005; J2270

== ENCOUNTER 2018-01-13 09:28 | Emergency (ER) | payer MEDICARE ==
--- NOTE | 2018-01-13 10:04 | RAD ---
PORTABLE AP CHEST: Date: 01/13/18 HISTORY: Left side thoracostomy tube. Follow-up evaluation. COMPARISON: 01/13/18 at 0158 hours. FINDINGS: Left-sided thoracostomy tube remains in place and unchanged in position. There is a small left-sided pneumothorax with pleural fluid also present at the left lung base. Interstitial and parenchymal soliman ges, and areas of cavitation in the lung apices and upper lobes persist. Cardiac silhouette is within normal limits. Mild prominence of the interstitial markings within the m ajority of the left lung. There has been no significant interval change from prior exam. IMPRESSION: 1. Left-sided thoracostomy tube stable in position with left hydropneumothorax again seen. 2. Persistent chronic lung changes with cavitary lesions again seen in the upper lobes/lung apices b ilaterally. 3. Patchy parenchymal changes left lung base which could be related to a more acute infectious proce ss/pneumonia. Follow-up to resolution is recommended. 4. Tubular structure within the right lower quadrant, also seen on multiple prior studies, which may be related to either bronchiectasis and adjacent peribronchial thickening, or possibly secondary to small cavitary lesion in the right lung base. Again, this is stable from prior study. POS: [facility]
--- NOTE | 2018-01-13 11:45 | RAD ---
PORTABLE CHEST 1 VIEW: Date: 01/13/18 Time: 1052 hours HISTORY: Chest pain. FINDINGS/IMPRESSION: Comparison made with exam from 0158 hours, same date. There has been interval removal of left-sided chest tube. No definite pneumothorax is seen. Remainder of exam is otherwise stable. POS: [facility]
--- NOTE | 2018-01-13 21:05 | CON ---
DATE OF CONSULTATION: 01/13/2018 SERVICE: Pulmonary Medicine. REASON FOR CONSULTATION: Chest tube management. HISTORY OF PRESENT ILLNESS: The patient is a 57-year-old male with past medical history significant for pulmonary tuberculosis. He was recently in the hospital for a secondary spontaneous pneumothorax. He had an extended stay here and ultimately was discharged to a rehabilitation facility. He did well and thrived in that location. Ultimately, however, he got bored waiting for his pneumothorax to resolve. He convinced his family to take him home from the LTAC facility. In that location, he did very poorly. I started having increasing chest discomfort, back discomfort, side pain, headache. The family was unable to manage the patient and subsequently brought him to the emergency department at 2:00 this morning. Diagnostic studies were essentially unremarkable. As such, he was discharged back home. He was supposed to see me in clinic at 10:00 this morning with a preclinic chest x-ray, but hysterical family showed up in my waiting room without the patient suggesting that there is no possible way that they could get him to me and requested that I remove the chest tube. I explained to them that I could not remove the chest tube if the patient was not present. They were hoping that we could arrange transportation the day of the procedure. When I explained to them that we were not going to be able to do that, they decided to bring him back to the emergency department, so I could evaluate him in that setting. The family also has no intentions of bringing him back home suggesting they can no longer care for him in his current condition. When I talked to the patient, he really does not have any complaints of chest discomfort or pleuritic chest pain. PAST MEDICAL HISTORY: 1. 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 2. Dyslipidemia. 3. 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 4. History of secondary spontaneous pneumothorax, status post chest tube placement, currently in place. PAST SURGICAL HISTORY: Chest tube placement x2. FAMILY HISTORY: Noncontributory. SOCIAL HISTORY: Negative for any alcohol, tobacco or illicit drug use. He previously lived at home with his . He spends most of his time in bed. At baseline, a month ago, he was able to get out of bed into a chair with significant assistance. ALLERGIES: NONSTEROIDAL ANTI-INFLAMMATORY DRUGS. MEDICATIONS: List of his inpatient medications were reviewed. I have made no updates to the list at this time. REVIEW OF SYSTEMS: General, head, ears, eyes, nose, throat, cardiovascular, respiratory, GI, , musculoskeletal, neurologic and skin is negative except as mentioned in the HPI. Of note, he no longer has cough. He is not producing any sputum. PHYSICAL EXAMINATION: VITAL SIGNS: Afebrile, pulse 85, blood pressure 113/74, respirations 20, saturation 99% on room air. GENERAL: The patient is awake, alert, no apparent distress. LUNGS: Excellent air entry. There is no prolonged expiratory phase, wheezing, rhonchi, or crackles present today. HEART: Normal rate, regular. ABDOMEN: Soft, nontender, nondistended. Bowel sounds are positive. MUSCULOSKELETAL: No cyanosis or clubbing. There is 1+ pitting in the bilateral lower extremities. NEUROLOGIC: Grossly nonfocal. LABORATORY: CBC this morning demonstrates normal white blood cell count, stable hemoglobin, and improving platelet count. D-dimer 1.67. Comprehensive metabolic profile is unremarkable. Lipase falls within the normal limits. IMAGIN. Chest x-ray demonstrates interval removal of the left-sided chest tube with no significant development of pneumothorax. There is pleural thickening and likely pleural effusion present and what I suspect to be a trapped lung. 2. Ultrasound of bilateral lower extremities demonstrates no evidence of DVT. 3. Lumbar spine x-ray demonstrates no acute osseous abnormality or subluxation. Spondylosis is noted. ASSESSMENT: 1. Secondary spontaneous pneumothorax. 2. Pulmonary tuberculosis, suspect reactivation. 3. Quadriparesis. DISCUSSION AND PLAN: The patient was having some problems with pain based on what the family is telling me, but he tells me that he is not having much discomfort. We were able to remove the chest tube and some of his discomfort resolved. The family is suggesting that they no longer have the capability of helping this patient. As such, we will talk to the case technician about getting the patient to a local longterm facility. If we cannot arrange this, we will bring the patient into the hospital under observation or as an inpatient, so that we can facilitate placement in this location. The family has already suggested they will be unwilling to take him home at this point. Pulmonary Critical Care will continue to follow along if he is admitted to the hospital. If he develops any increasing shortness of breath, stat x-ray should be done. He has a high risk of developing a repeat pneumothorax. 70 minutes have been devoted to this patient in various activities. I personally reviewed all imaging studies and laboratory data noted within this document. For fifty percent of this time, I was interacting with the patient at the bedside or coordinating care with the care team. For the remainder of the time I was immediately available to the patient in the hospital unit. JULIUS
== END 2018-01-13 14:41 | disposition short-term general hospital (02) ==
LOC: ERS 09:28
DX: A15.0 Tuberculosis of lung (principal); R62.7 Adult failure to thrive; G83.9 Paralytic syndrome, unspecified; Z86.73 Personal history of transient ischemic attack (TIA), and cerebral infarction without residual deficits
CPT/HCPCS: 71045; 72100; 80053; 83690; 85025; 85379; 93005; 96374; J2270

== ENCOUNTER 2018-04-16 13:03 | Inpatient (IN) | payer MEDICARE, MEDICAID ==
[2018-04-16 13:44] LABS: #Basophils 0.1 thou/uL (0.0-0.2); #Lymphocytes 2.5 thou/uL (1.20-3.40); #Monocytes 0.9 thou/uL (0.11-0.59); #Neutrophils 14.5 thou/uL (1.40-6.50); %Basophils 0.3 % (0.0-1.0); %Eosinophils 0.1 % (0.0-10.0); %Monocytes 5.1 % (0.0-10.0); %Neutrophils 80.5 % (42.0-75.0); Hemoglobin 13.4 g/dL (14.0-18.0); Mean Corpuscular HGB CONC 33.9 g/dL (32.0-36.0); Mean Corpuscular Hemoglobin 24.5 pg (27.0-31.0); Mean Corpuscular Volume 72.2 fL (78.0-98.0); Mean Platelet Volume 8.1 fL (7.4-10.4); Platelet Count 393 thou/uL (130-400); Red Blood Cell (RBC) Count 5.46 mill/uL (4.70-6.10)
[2018-04-16] MEDS ORDERED: Ibuprofen 200 MG TAB ONE (13:57)
[2018-04-16] MEDS ORDERED: Acetaminophen 500 MG TAB ONE (13:57)
[2018-04-16 14:04] LABS: ALT (SGPT) 7 U/L (8-55); AST (SGOT) 18 U/L (5-34); Albumin 3.8 g/dL (3.5-5.0); Alkaline Phosphatase 112 U/L (40-150); Anion Gap 14 mmol/L (10-20); BUN (Urea Nitrogen) 19 mg/dL (8.4-25.7); Bilirubin, Total 0.5 mg/dL (0.2-1.2); Calc. Creatinine Clearance 0 mL/min (70-130); Calcium 10.4 mg/dL (7.8-10.44); Carbon Dioxide 20 mmol/L (22-29); Chloride 102 mmol/L (98-107); Estimated GFR-MDRD 62; Globulin 5.1 g/dL (2.4-3.5); Glucose 157 mg/dL (70-105); Potassium 4.3 mmol/L (3.5-5.1); Protein, Total 8.9 g/dL (6.0-8.3); Sodium 132 mmol/L (136-145)
[2018-04-16 14:41] LABS: Bilirubin Negative (Negative); Blood, Urine Small (Negative); Clarity CLOUDY (Clear); Glucose, Urine (Dipstick) Negative (Negative); Leukocyte Large (Negative); Nitrite Negative (Negative); Protein, Urine (Dipstick) 30 mg/dL (Neg-Trace); Specific Gravity, Urine 1.012 (1.002-1.036); pH, Urine 7.5 (5.0-9.0)
[2018-04-16 14:43] LABS: Bacteria/HPF 4+ HPF (None Seen); Hyaline Casts/LPF 4-6 HYALINE CAST LPF (0-3 Hyaline); Pathc Cast-AUWi Flag 0.58 (0-2.49); Squamous Epithelial None Seen HPF (0-3)
--- NOTE | 2018-04-16 15:19 | RAD ---
CHEST 1 VIEW: Date: 04/16/18 HISTORY: Chest pain. Emergency exam. COMPARISON: Radiograph dated 02/05/18. FINDINGS: Layering left effusion which may be loculated. Large bulla in right upper lobe. There is extensive br onchiectasis in both upper lobes. Small right effusion. IMPRESSION: 1. Layering large left pleural effusion which may have some loculation component. 2. Bullous formation both upper lobes. 3. Extensive upper lobe bronchiectasis, likely sequelae of prior atypical infection such as tubercul osis. POS: [facility]
--- NOTE | 2018-04-16 15:51 | CT ---
CT ABDOMEN AND PELVIS WITH IV CONTRAST: HISTORY: Right lower quadrant pain. FINDINGS: The superior-most images show a loculated collection of fluid at the left posterior pleural space, me asuring up to 9 cm in width x 4.7 cm in depth. The length is incompletely evaluated. Atelectasis is present at each lung base. Severe right hydronephrosis is similar in appearance to the prior study, with calcifications in the d ependent portion of the dilated renal collecting system. The left renal collecting system is decompr essed. The urinary bladder is incompletely distended. There is circumferential wall thickening of t he rectum with mild fecal distention. The appendix is not inflamed. No free fluid or free air. Duplicated inferior vena cava, below the l evel of the renal veins. Degenerative changes of the lumbar spine and hips. IMPRESSION: 1. Cause for right lower quadrant acute pain is not evident. Appendix not inflamed. 2. Loculated left basilar pleural fluid with adjacent atelectasis. This appears to represent a bench assembly inspector carlos process. It was partially visualized on the CT from 01/25/2018. 3. Severe chronic right hydronephrosis. 4. Circumferential inflammation of the rectum, age indeterminate. Clinical correlation regarding ot her signs and symptoms of proctitis is required. POS: [facility]
--- NOTE | 2018-04-16 16:16 | PDOC.FPRHP ---
- History of Present Illness Chief Complaint: fever, flank pain History of Present Illness: Jasmeet Gregg is a 57 year old Male with pmh of incomplete quadriplegia from cervical spinal stenosis, Hx of TB with unknown completion of treatment who presented from the long-term to the ED with a hx of fever and dull right flank pain. Symptoms started at 0300 day of admission and have been constant. Reports dysuria. Temp was as high as 103.1 at home. Does report a left midaxillary chest wound that has not healed after chest tube removed after prior admission. Reports draining serosanginous fluid. Reports no surrounding erythema or associated pain. Reports completing TB medications. Denies chest pain, dyspnea, n/v. ED Course: 3L NS, Vancomycin, Ceftriaxone, Motrin, Tylenol - Allergies/Adverse Reactions Allergies Allergy/AdvReac Type Severity Reaction Status Date / Time NSAIDS (Non-Steroidal AdvReac Verified 01/13/18 18:53 Anti-Inflamma - Home Medications Medication Instructions Recorded Confirmed Type Cholecalciferol (Vitamin D3) 2,000 unit PO DAILY 12/13/17 02/07/18 History [Vitamin D] Acetaminophen [Tylenol] 650 mg PO Q4HR PRN 01/03/18 02/07/18 History Enoxaparin Sodium [Lovenox] 40 mg SC DAILY 01/03/18 02/07/18 History Ethambutol HCl [Myambutol] 800 mg PO DAILY #0 tab 01/03/18 01/13/18 Rx Isoniazid 300 mg PO DAILY #0 tab 01/03/18 01/13/18 Rx Melatonin 3 mg PO HS PRN 01/03/18 02/07/18 History Rifampin [Rifadin] 600 mg PO DAILY #0 cap 01/03/18 01/13/18 Rx traMADol HCl [Tramadol HCl] 50 mg PO BID 01/13/18 02/07/18 History Acetaminophen [Tylenol Regular 650 mg PO Q4H PRN tab 02/07/18 Rx Strength] Ascorbic Acid [Vitamin C] 1,000 mg PO QAM-WM tab 02/07/18 Rx Calcium Carbonate [Tums] 1,000 mg PO Q4H PRN tab 02/07/18 Rx Docusate [Colace] 100 mg PO BIDPRN PRN cap 02/07/18 Rx Ethambutol HCl [Myambutol] 800 mg PO QAM-WM tab 02/07/18 Rx Famotidine [Pepcid] 20 mg PO BID tab 02/07/18 Rx Ferrous Sulfate [Feosol] 325 mg PO BID-WM tab 02/07/18 Rx Fish Oil 1,000 mg PO DAILY cap 02/07/18 Rx Isoniazid 300 mg PO DAILY-AC tab 02/07/18 Rx Mirtazapine [Remeron] 30 mg PO HS tab 02/07/18 Rx Ondansetron [Zofran ODT] 4 mg PO Q6H PRN tab 02/07/18 Rx Polyethylene Glycol 3350 [Miralax] 17 gm PO DAILY pk 02/07/18 Rx Pyrazinamide 1,500 mg PO DAILY tab 02/07/18 Rx pyridOXINE [Vitamin B 6] 50 mg PO DAILY tab 02/07/18 Rx - History PMHx: right sided paralysis, hx of TB s/p treatment PSHx: None FHx: None Social: Denies current tobacco, drug, alcohol use. Lives at home with his . Wheelchair for ambulation - Review of Systems General: reports: fever/chills. denies: weight/appetite/sleep changes Eyes: denies: eye pain, vision changes ENT: denies: nasal congestion, rhinorrhea Respiratory: denies: cough, congestion, shortness of breath Cardiovascular: denies: chest pain, palpitation, edema Gastrointestinal: reports: constipation, abdominal pain. denies: nausea, vomiting, diarrhea Genitourinary: reports: incontinence, dysuria Skin: reports: lesions (left side where chest tube was previously). denies: rashes Musculoskeletal: denies: stiffness, swelling Neurological: reports: weakness. denies: numbness - Vital signs BP: 85/56 HR: 110 RR: 18 Tmax: 103.1 Pox: 96% on RA Wt: 54kg - Physical Exam Constitutional: NAD, awake, alert and oriented, well developed HEENT: normocephalic and atraumatic, grossly normal hearing, MMM, oropharynx clear Neck: supple, trachea midline, no JVD Heart: RRR, no murmurs/rubs/gallops, pulses present, no edema Lungs: CTAB, no respiratory distress, good air movement Abdomen: soft, bowel sounds present, other (Suprapubic tenderness to palpation. No CVA tenderness) Neurological: other (unable to raise arms off bed. 5/5 dorsiflexion/ plantarflexion Unable to lift legs off bed) Skin: capillary refill <2 seconds -Skin: Bandage over left midaxillary chest- hx of chest tube at site Psychiatric: normal mood and affect, good judgment and insight, intact recent and remote memory FMR H&P: Results - Labs Result Diagrams: 04/16/18 13:18 04/16/18 13:18 Lab results: WBC 18.0 thou/uL (4.8-10.8) H 04/16/18 13:18 Hgb 13.4 g/dL (14.0-18.0) L 04/16/18 13:18 Hct 39.4 % (42.0-52.0) L 04/16/18 13:18 MCV 72.2 fL (78.0-98.0) L 04/16/18 13:18 Plt Count 393 thou/uL (130-400) 04/16/18 13:18 Neutrophils % 80.5 % (42.0-75.0) H 04/16/18 13:18 Sodium 132 mmol/L (136-145) L 04/16/18 13:18 Potassium 4.3 mmol/L (3.5-5.1) 04/16/18 13:18 Chloride 102 mmol/L (98-107) 04/16/18 13:18 Carbon Dioxide 20 mmol/L (22-29) L 04/16/18 13:18 BUN 19 mg/dL (8.4-25.7) 04/16/18 13:18 Creatinine 1.21 mg/dL (0.7-1.3) 04/16/18 13:18 Glucose 157 mg/dL (70-105) H 04/16/18 13:18 Lactic Acid 2.0 mmol/L (0.5-2.2) 04/16/18 13:18 Calcium 10.4 mg/dL (7.8-10.44) 04/16/18 13:18 Total Bilirubin 0.5 mg/dL (0.2-1.2) 04/16/18 13:18 AST 18 U/L (5-34) 04/16/18 13:18 ALT 7 U/L (8-55) L 04/16/18 13:18 Alkaline Phosphatase 112 U/L (40-150) 04/16/18 13:18 Serum Total Protein 8.9 g/dL (6.0-8.3) H 04/16/18 13:18 Albumin 3.8 g/dL (3.5-5.0) 04/16/18 13:18 Urine Ketones Negative mg/dL (Negative) 04/16/18 14:16 Urine Blood Small (Negative) H 04/16/18 14:16 Urine Nitrite Negative (Negative) 04/16/18 14:16 Ur Leukocyte Esterase Large (Negative) H 04/16/18 14:16 Urine RBC 11-20 HPF (0-3) H 04/16/18 14:16 Urine WBC Greater Than 50-TNTC HPF (0-3) H 04/16/18 14:16 Ur Squamous Epith Cells None Seen HPF (0-3) 04/16/18 14:16 Urine Bacteria 4+ HPF (None Seen) H 04/16/18 14:16 - EKG Interpretation EKG: Sinus Tachycardia - Radiology Interpretation Chest x-ray Status: report reviewed by me Additional comment: Layering large left pleural effusion which may have some loculation Bullous formation both upper lobes Extensive upper lobe bronchiectasis CT scan - abdomen Status: report reviewed by me Additional comment: Appendix not inflamed Loculated left basilar pleural fluid with adjacent atelectasis. Appears to represent a chronic process. Severe chronic right hydronephrosis Circumferential inflammation of rectum, age indeterminate. FMR H&P: A/P - Problem List (1) Sepsis Current Visit: Yes Status: Acute Code(s): A41.9 - SEPSIS, UNSPECIFIED ORGANISM (2) UTI (urinary tract infection) Current Visit: Yes Status: Acute (3) Proctitis Current Visit: Yes Status: Acute Code(s): K62.89 - OTHER SPECIFIED DISEASES OF ANUS AND RECTUM (4) Weakness Current Visit: No Status: Chronic Code(s): R53.1 - WEAKNESS - Plan Sepsis 2/2 UTI - ddx: proctitis - Febrile, Leukocytosis 18, tachycardic - UA consistent with UTI, pt reports dysuria. No CVA tenderness on exam - S/p 3L and Ceftriaxone in ED - Continue IV Vanc. Will start Zosyn for coverage of possible proctitis - Continue mIVF LR - Blood and Urine Cultures pending - Monitor labs and vital signs closely - Admit too medicine UTI - Manage as above Hx of TB - TB vs nonTB mycobacterium - Pt reports completing regimen and no longer taking medication - Will contact Asset Card Clerk Dr Chery tomorrow, start Rifampin and Isoniazide at that time if indicated Incomplete Quadriplegia 2/2 cervical spinal stenosis - Present for >10yrs, uses wheelchair to ambulate - Resides in long-term - OT/PT to prevent deconditioning - Currently at baseline Code Status: FULL DVT ppx: Lovenox Dispo: >2 midnights FMR H&P: Upper Level - Pertinent history Jasmeet Gregg is a 57 year old male with a 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 Patient states that his symptoms have been constant, worsened by movement, and describes it as a dull achy pain. He has not ever had pain like this before. Recently admitted to hospital for TB and required a chronic chest tube from which he is still healing. He has apparently completed his full course of antituberulosis drugs. He denies any chest pain, dyspnea, n/v. States he has had some pain with urination and occasional pain with defecation. In the ED, he was started on vancomycin and rocephin and given 1 L NS and 1 g tylenol for pain. ROS: 12 point review of systems reviewed and were negative unless otherwise stated in the HPI. - Pertinent findings PE: General: Adult male in NAD, A&OX3 HEENT: AT/NC, EOMI, PERRL CV: RRR no murmurs, rubs, gallops Resp: CTAB no wheezes, rales, rhonchi Abd: TTP in the RMQ and RLQ, no rebound or guarding, Mod TTP in suprapubic area. No CVAT. Ext: No cyanosis or edema MSK: Proximal muscle weakness in the UE and LE, cannot rise to seated position on his own. 5/5 strength with plantar and dorsiflexion. R UE slightly stronger than L but overall 2-3/5 strength in UEs. Neuro: A&OX3, CN II-XII grossly intact Laboratory Tests 04/16/18 04/16/18 04/16/18 13:18 13:18 13:18 WBC 18.0 H Hgb 13.4 L Hct 39.4 L Plt Count 393 Neutrophils % 80.5 H Sodium 132 L Potassium 4.3 Chloride 102 Carbon Dioxide 20 L BUN 19 Creatinine 1.21 Glucose 157 H Lactic Acid 2.0 Urine Color Urine Clarity Urine pH Ur Specific [place] Urine Protein Urine Glucose (UA) Urine Ketones Urine Blood Urine Nitrite Urine Bilirubin Urine Urobilinogen Ur Leukocyte Esterase Urine RBC Urine WBC Ur Squamous Epith Cells Urine Bacteria Hyaline Casts 04/16/18 14:16 WBC Hgb Hct Plt Count Neutrophils % Sodium Potassium Chloride Carbon Dioxide BUN Creatinine Glucose Lactic Acid Urine Color YELLOW Urine Clarity CLOUDY Urine pH 7.5 Ur Specific [place] 1.012 Urine Protein 30 H Urine Glucose (UA) Negative Urine Ketones Negative Urine Blood Small H Urine Nitrite Negative Urine Bilirubin Negative Urine Urobilinogen 1.0 Ur Leukocyte Esterase Large H Urine RBC 11-20 H Urine WBC Greater Than 50-TNTC H Ur Squamous Epith Cells None Seen Urine Bacteria 4+ H Hyaline Casts 4-6 HYALINE CAST H CXR: Layering large left pleural effusion, which may have some loculation component. Bullous formation in both upper lobes. Extensive upper lobe bronchiectasis. CT abd/pelv: Severe chronic right hydronephrosis. Normal appendix. Circumferential inflammation of the rectum. - Plan Date/Time: 04/16/18 1616 I, Nain Schmitt, have evaluated this patient and agree with findings/plan as outlined by engineer internship resident. Pertinent changes/additions are listed here. 1) Sepsis: secondary to UTI and possible Proctitis - Admit to Tele - WBC count 18.0, UA showed 4+ bact, Large Leuk Est, >50 WBCs - S/p 1 L NS, IV vancomycin and rocephin in the ED - Continuing IV vancomycin and switching to IV Zosyn for coverage of proctitis - Severe right hydronephrosis, consider Urology consult in AM - Continue IVFs - Blood and urine cultures pending - repeat CBC and BMP in the AM 2) UTI - see #1 3) Hx of TB - has apparently completed full regimen - Has chronic lung findings on CT abd/pelv and CXR consistent with previous TB and chronic chest tube that has since been removed. 4) Paralysis - Recorded as hx of CVA in ER document - patient unable to explain where his paralysis came from - currently resident in [facility] - consult PT/OT - no new deficits per patient and family CODE STATUS: FULL CODE DVT PPX: Tiff Addendum - Attending - Attending Attestation Date/Time: 04/16/[id number] I personally evaluated the patient and discussed the management with Dr. Kay I agree with the History, Examination, Assessment and Plan documented above with any addition or exceptions noted below- 57 year old Male with pmh of incomplete quadriplegia from cervical spinal stenosis who presented from the long-term to the ED with a hx of fever and dull right flank pain. (+) dysuria and suprapubic pain. Denies any N/V. Normal appetite. Hospitalized in December for spontaneous pneumothorax thought to be secondary to TB. Culture showed non-TB mycobacterium. Family reports he is no longer on TB meds. PMH/PSH/ Meds/All reviewed and agree with resident's documentation. T103.1 BP 106/79 P65 Exam repeated by me and agree with resident's findings. Labs: WBC=18.0, H/H=13.4 /39.4, Xrd=756, Qa=364, K=4.3, Vf=339, CO2=20, BUN/Cr= 19/1.21, Cfjq=727, Lactic acid=2.0, U/A- sm blood, Large LE, WBC>50, 4+bacteria. CT abd/pelvis- chronic right hydronephrosis, circumferential inflammation of rectum possible proctitis. CXR- large left pleural effusion. A/P: 1) Sepsis secondary to UTI - BP responded to fluid boluses and MAP now >65, tachycardia resolved. Admit to medical. Continue abx. Blood and urine cultures pending. 2) Incomplete quadriplegia- stable. 3) Chronic pleural effusion- asymptomatic. Continue to monitor.
[2018-04-16] MEDS ORDERED: cefTRIAXone\\ROCEPHIN 2 GM VIAL ONE (16:20)
[2018-04-16] MEDS ORDERED: Iopamidol 370 76% 100 ML VIAL ONE (17:14)
[2018-04-16] MEDS ORDERED: Docusate 100 MG CAP PO PRN (17:27)
[2018-04-16] MEDS ORDERED: Melatonin 3 MG TAB PO PRN (17:27)
[2018-04-16 22:34] VITALS: BMI 18.8
[2018-04-16] MEDS: Famotidine 20 MG TAB PO SCH (23:15)
[2018-04-16] MEDS: Mirtazapine 30 MG TAB PO SCH (23:15)
[2018-04-16] MEDS: Acetaminophen 500 MG TAB PO PRN (23:15)
[2018-04-16] MEDS: Lactated Ringer's 1,000 ML IV SCH (23:16)
[2018-04-17] MEDS: traMADol HCl 50 MG TAB PO PRN ×3 (04:05→23:38)
--- NOTE | 2018-04-17 05:56 | PDOC.FM ---
- Subjective Subjective: Patient denies fever/chills. Reports continued pain though it is improving some. Tolerating PO intake well. Says he last saw mica plate layer hand months ago when chest tube was removed. Notes he was originally supposed to be on TB treatment x6 mo but was taken off these meds early. - Objective MAR Reviewed: Yes Vital Signs & Weight: Vital Signs (12 hours) Temp Pulse Resp BP Pulse Ox 04/17/18 03:58 99.3 F 97 20 146/65 H 99 04/17/18 02:50 98.6 F 04/17/18 00:00 100.8 F H 89 18 98/61 95 04/16/18 21:30 94 L 04/16/18 21:27 100.2 F H 89 22 H 129/74 94 L Weight Weight 51.211 kg Result Diagrams: 04/17/18 07:11 04/17/18 07:11 Phys Exam - Physical Examination Constitutional: NAD HEENT: moist MMs Respiratory: clear to auscultation bilateral (anteriorly) Cardiovascular: RRR, no significant murmur Gastrointestinal: soft, no distention, positive bowel sounds Musculoskeletal: no edema Neurological: non-focal Deviation from normal: wound bandage in place over previous chest tube site Dx/Plan (1) Mycobacterial disease, pulmonary Code(s): A31.0 - PULMONARY MYCOBACTERIAL INFECTION Status: Acute (2) Sepsis Code(s): A41.9 - SEPSIS, UNSPECIFIED ORGANISM Status: Acute (3) UTI (urinary tract infection) Status: Acute (4) Spinal cord compression Code(s): G95.20 - UNSPECIFIED CORD COMPRESSION Status: Chronic - Plan Plan: Sepsis 2/2 UTI/proctitis - Febrile, Leukocytosis 18, tachycardic on initial presentation. S/p 3L and Ceftriaxone in ED - fever 102 this am - UA consistent with UTI, pt reports dysuria. No CVA tenderness on exam - Continue IV Vanc & Zosyn for coverage of possible proctitis - Continue mIVF LR, will consider d/c today - Blood cx negative to date. Urine culture prelim gram neg rods Hx of TB - TB vs nonTB mycobacterium - Pt reports completing regimen and no longer taking medication - Will need to contact health department to know patient's med regimen. Incomplete Quadriplegia 2/2 cervical spinal stenosis - Present for >10yrs, uses wheelchair to ambulate - Resides in senior care, Dr. Mosquera caring for him. - OT/PT to prevent deconditioning - Currently at baseline Code Status: FULL DVT ppx: Lovenox Addendum - Attending - Attending Attestation Date/Time: 04/17/18 1040 I personally evaluated the patient and discussed the management with Dr. Horvath. I agree with the History, Examination, Assessment and Plan documented above with any addition or exceptions noted below. Will call health department to see if pt received full tb treatment. Pt's PCP is Dr. Mosquera as he is at [facility] [place] [facility]. Will discuss transferring to [facility].
[2018-04-17] MEDS: Acetaminophen 500 MG TAB PO PRN ×2 (07:52→20:28)
[2018-04-17] MEDS: pyridOXINE 50 MG (B6) TAB PO SCH (07:52)
[2018-04-17] MEDS: Famotidine 20 MG TAB PO SCH ×2 (07:53→20:28)
[2018-04-17] MEDS: Lactated Ringer's 1,000 ML IV SCH ×2 (07:53→17:30)
[2018-04-17] MEDS: Enoxaparin Sodium 40 MG/0.4 ML SYRINGE SC SCH (07:53)
[2018-04-17] MEDS: Polyethylene Glycol 3350 17 GM Packet PO SCH (07:53)
[2018-04-17 08:08] LABS: Anion Gap 12 mmol/L (10-20); BUN (Urea Nitrogen) 15 mg/dL (8.4-25.7); Calc. Creatinine Clearance 59 mL/min (70-130); Calcium 9.4 mg/dL (7.8-10.44); Carbon Dioxide 18 mmol/L (22-29); Chloride 109 mmol/L (98-107); Estimated GFR-MDRD 76; Glucose 98 mg/dL (70-105); Potassium 3.8 mmol/L (3.5-5.1); Sodium 135 mmol/L (136-145)
[2018-04-17 08:51] LABS: Band 41 % (5-11); Hemoglobin 10.9 g/dL (14.0-18.0); Hypochromia SLIGHT = 6-15 cells (100X) (0-5/hpf); Lymphocytes 13 % (21-51); MDiff Complete? YES; Mean Corpuscular HGB CONC 33.2 g/dL (32.0-36.0); Mean Corpuscular Hemoglobin 24.2 pg (27.0-31.0); Mean Corpuscular Volume 72.9 fL (78.0-98.0); Mean Platelet Volume 7.9 fL (7.4-10.4); Microcytosis SLIGHT = 6-15 cells (100X) (0-5/hpf); Monocytes 7 % (0-10); Neutrophil 39 % (42-75); Platelet Count 296 thou/uL (130-400); Polychromasia SLIGHT = 2-3 cells (100X) (0-2/hpf); Reflex for Review?? YES; White Blood Cell (WBC) Count 27.9 thou/uL (4.8-10.8)
[2018-04-17] MEDS ORDERED: Rifampin 300 MG CAP PO SCH (09:00)
[2018-04-17] MEDS ORDERED: Isoniazid 100 MG TAB PO SCH (10:00)
--- NOTE | 2018-04-17 12:18 | PDOC.EVN ---
Event Note - Event Note Event Note: Spoke with hospitalist, Dr. Alanis. 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
[2018-04-17] MEDS: Mirtazapine 30 MG TAB PO SCH (20:28)
[2018-04-18] MEDS: Acetaminophen 500 MG TAB PO PRN ×3 (04:31→20:35)
[2018-04-18] MEDS: Lactated Ringer's 1,000 ML IV SCH ×2 (05:45→20:41)
[2018-04-18 08:07] LABS: Anion Gap 9 mmol/L (10-20); BUN (Urea Nitrogen) 14 mg/dL (8.4-25.7); Calc. Creatinine Clearance 58 mL/min (70-130); Calcium 9.4 mg/dL (7.8-10.44); Carbon Dioxide 20 mmol/L (22-29); Chloride 105 mmol/L (98-107); Estimated GFR-MDRD 75; Glucose 84 mg/dL (70-105); Potassium 4.1 mmol/L (3.5-5.1); Sodium 130 mmol/L (136-145)
[2018-04-18 08:17] LABS: Hemoglobin 9.6 g/dL (14.0-18.0); Mean Corpuscular HGB CONC 32.2 g/dL (32.0-36.0); Mean Corpuscular Hemoglobin 23.8 pg (27.0-31.0); Mean Platelet Volume 7.6 fL (7.4-10.4); Platelet Count 262 thou/uL (130-400); RBC Distribution Width 15.8 % (11.5-14.5); Red Blood Cell (RBC) Count 4.04 mill/uL (4.70-6.10); White Blood Cell (WBC) Count 24.9 thou/uL (4.8-10.8)
[2018-04-18 08:55] LABS: Band 28 % (5-11); Lymphocytes 9 % (21-51); MDiff Complete? YES; Microcytosis SLIGHT = 6-15 cells (100X) (0-5/hpf); Monocytes 10 % (0-10); Neutrophil 51 % (42-75); Platelet Morphology Comment Appears Adequate; Polychromasia SLIGHT = 2-3 cells (100X) (0-2/hpf); Reactive Lymphocytes 1 % (0-10); Toxic Granulation SLIGHT
--- NOTE | 2018-04-18 09:13 | PDOC.PN ---
- Subjective Encounter Start Date: 04/18/18 Encounter Start Time: 09:11 -: old records requested/rev Pt seen and examined, chart reviewed in its entirety, this is my first visit with this patient We have assumed care form [facility] as pt is now in long-term care at [facility] under Dr Ling, whom we cover. NoF/C,no N/V/d/C, tokl PO Chest pain tolerable all systems reviewed and neg x as above Abx given in ER, no sign any other abx ordered since 04/16 dose of rocephin - Objective Resuscitation Status - Order Detail: 04/16/18 16:43 Resuscitation Status Routine Co-Sign Provider: Resuscitation Status: FULL: Full Resuscitation Discussed with: Patient and family MAR Reviewed: Yes Vital Signs & Weight: Vital Signs (12 hours) Temp Pulse Resp BP Pulse Ox 04/18/18 08:00 98.3 F 79 16 100/63 95 04/18/18 06:06 100.2 F H 04/18/18 04:00 103 F H 93 18 104/68 95 04/18/18 00:00 101.1 F H 83 18 100/64 95 Weight Admit Weight 112 lb Weight 112 lb 14.4 oz I&O: 04/17/18 04/18/18 04/19/18 06:59 06:59 06:59 Intake Total 850 Output Total 600 Balance 250 Result Diagrams: 04/18/18 07:25 04/18/18 07:25 Radiology Reviewed by me: Yes EKG Reviewed by me: Yes Phys Exam - Physical Examination Constitutional: NAD HEENT: PERRLA, moist MMs, sclera anicteric, oral pharynx no lesions Neck: no nodes, no JVD, supple, full ROM Respiratory: no wheezing, no rales, no rhonchi, clear to auscultation bilateral Cardiovascular: RRR, no significant murmur, no rub Gastrointestinal: soft, non-tender, no distention, positive bowel sounds Musculoskeletal: no edema, pulses present Neurological: moves all 4 limbs paraplegic Lymphatic: no nodes Psychiatric: normal affect, A&O x 3 Skin: no rash, normal turgor, cap refill <2 seconds Dx/Plan (1) Mycobacterial disease, pulmonary Code(s): A31.0 - PULMONARY MYCOBACTERIAL INFECTION Status: Ruled-out Comment : not MTB. cultures removed (2) Proctitis Code(s): K62.89 - OTHER SPECIFIED DISEASES OF ANUS AND RECTUM Status: Acute Comment: trnasition to levoflox and flagyl to cover this and UTI (3) Sepsis Code(s): A41.9 - SEPSIS, UNSPECIFIED ORGANISM Status: Acute Qualifiers: Sepsis type: sepsis due to unspecified organism Qualified Code(s): A41.9 - Sepsis, unspecified organism Comment: suspect and presumed GNR from kleb UTI and proctitis (4) UTI (urinary tract infection) Status: Acute Qualifiers: Urinary tract infection type: acute cystitis Hematuria presence: without hematuria Qualified Code(s): N30.00 - Acute cystitis without hematuria (5) Anemia in chronic illness Code(s): D63.8 - ANEMIA IN OTHER CHRONIC DISEASES CLASSIFIED ELSEWHERE Status : Chronic (6) HLD (hyperlipidemia) Code(s): E78.5 - HYPERLIPIDEMIA, UNSPECIFIED Status: Chronic Qualifiers: Hyperlipidemia type: unspecified Qualified Code(s): E78.5 - Hyperlipidemia , unspecified (7) Spinal cord compression Code(s): G95.20 - UNSPECIFIED CORD COMPRESSION Status: Chronic (8) Weakness Code(s): R53.1 - WEAKNESS Status: Chronic - Plan cont current plan of care, continue antibiotics, social media senior associate * . to lampstand when stable
[2018-04-18] MEDS ORDERED: cefTRIAXone\\ROCEPHIN 2 GM in Sodium Chloride 0.9% 100 ML IVPB SCH (09:15)
[2018-04-18] MEDS: Famotidine 20 MG TAB PO SCH ×2 (10:44→20:36)
[2018-04-18] MEDS: Enoxaparin Sodium 40 MG/0.4 ML SYRINGE SC SCH (10:44)
[2018-04-18] MEDS: pyridOXINE 50 MG (B6) TAB PO SCH (10:44)
[2018-04-18] MEDS: Polyethylene Glycol 3350 17 GM Packet PO SCH (10:44)
[2018-04-18] MEDS: traMADol HCl 50 MG TAB PO PRN (10:55)
[2018-04-18] MEDS: metroNIDAZOLE 500 MG in Premix Bag 1 BAG IVPB SCH ×2 (13:01→18:07)
[2018-04-18] MEDS: Mirtazapine 30 MG TAB PO SCH (20:36)
[2018-04-18] MEDS ORDERED: Doxycycline 100 MG CAP PO SCH (21:00)
[2018-04-19] MEDS: metroNIDAZOLE 500 MG in Premix Bag 1 BAG IVPB SCH ×4 (00:49→18:06)
[2018-04-19] MEDS: Acetaminophen 500 MG TAB PO PRN ×2 (05:49→17:02)
[2018-04-19] MEDS: Lactated Ringer's 1,000 ML IV SCH ×2 (09:01→18:08)
[2018-04-19] MEDS: Enoxaparin Sodium 40 MG/0.4 ML SYRINGE SC SCH (09:02)
[2018-04-19] MEDS: pyridOXINE 50 MG (B6) TAB PO SCH (09:02)
[2018-04-19] MEDS: Famotidine 20 MG TAB PO SCH ×2 (09:02→21:00)
[2018-04-19] MEDS: Polyethylene Glycol 3350 17 GM Packet PO SCH (09:02)
[2018-04-19 10:41] LABS: #Eosinphils 0.2 thou/uL (0.0-0.7); #Lymphocytes 1.5 thou/uL (1.20-3.40); %Basophils 0.2 % (0.0-1.0); %Eosinophils 1.3 % (0.0-10.0); %Lymphocytes 9.4 % (21.0-51.0); %Monocytes 6.3 % (0.0-10.0); %Neutrophils 82.8 % (42.0-75.0); Mean Corpuscular HGB CONC 32.5 g/dL (32.0-36.0); Mean Corpuscular Hemoglobin 24.3 pg (27.0-31.0); Mean Corpuscular Volume 74.6 fL (78.0-98.0); Mean Platelet Volume 7.7 fL (7.4-10.4); Platelet Count 259 thou/uL (130-400); RBC Distribution Width 15.8 % (11.5-14.5); Red Blood Cell (RBC) Count 3.69 mill/uL (4.70-6.10); White Blood Cell (WBC) Count 15.7 thou/uL (4.8-10.8)
[2018-04-19 11:03] LABS: Anion Gap 9 mmol/L (10-20); BUN (Urea Nitrogen) 14 mg/dL (8.4-25.7); Calc. Creatinine Clearance 59 mL/min (70-130); Calcium 9.5 mg/dL (7.8-10.44); Carbon Dioxide 22 mmol/L (22-29); Chloride 107 mmol/L (98-107); Estimated GFR-MDRD 76; Glucose 161 mg/dL (70-105); Magnesium 1.7 mg/dL (1.6-2.6); Potassium 3.5 mmol/L (3.5-5.1); Sodium 134 mmol/L (136-145)
--- NOTE | 2018-04-19 15:36 | PDOC.PN ---
- Subjective Encounter Start Date: 04/19/18 Encounter Start Time: 15:34 Mr. Gregg was seen today in follow-up. of UTI with sepsis.He does not have any complaints. - Objective Resuscitation Status - Order Detail: 04/16/18 16:43 Resuscitation Status Routine Co-Sign Provider: Resuscitation Status: FULL: Full Resuscitation Discussed with: Patient and family MAR Reviewed: Yes Vital Signs & Weight: Vital Signs (12 hours) Temp Pulse Resp BP BP Pulse Ox 04/19/18 11:04 99.2 F 75 18 87/47 L 96 04/19/18 08:55 97 04/19/18 08:00 98.8 F 77 18 92/57 L 97 04/19/18 04:00 100.4 F H 79 20 94/56 L 96 Weight Admit Weight 112 lb Weight 112 lb 14.4 oz I&O: 04/18/18 04/19/18 04/20/18 06:59 06:59 06:59 Intake Total 1280 Balance 1280 Result Diagrams: 04/19/18 10:14 04/19/18 10:14 Phys Exam - Physical Examination HEENT: PERRLA Respiratory: no wheezing, no rales, no rhonchi, clear to auscultation bilateral Cardiovascular: RRR, no significant murmur, no rub Gastrointestinal: soft, non-tender, no distention, positive bowel sounds Musculoskeletal: no edema Dx/Plan (1) Sepsis Code(s): A41.9 - SEPSIS, UNSPECIFIED ORGANISM Status: Acute Qualifiers: Sepsis type: sepsis due to unspecified organism Qualified Code(s): A41.9 - Sepsis, unspecified organism Comment: suspect and presumed GNR from kleb UTI and proctitis (2) UTI (urinary tract infection) Status: Acute Qualifiers: Urinary tract infection type: acute cystitis Hematuria presence: without hematuria Qualified Code(s): N30.00 - Acute cystitis without hematuria (3) Mycobacterial disease, pulmonary Code(s): A31.0 - PULMONARY MYCOBACTERIAL INFECTION Status: Ruled-out Comment : not MTB. cultures removed - Plan * UTI- urine culture is growing Klebsiella which is sensitive to Quinolones * Proctitis- improved * Sepsis- improving- but WBC count is still elevated, and his blood pressure is a bit low- will continue to monitor on IV antbiotics * Screen placed for half-way at [facility].
[2018-04-19] MEDS: Mirtazapine 30 MG TAB PO SCH (21:40)
[2018-04-20] MEDS: metroNIDAZOLE 500 MG in Premix Bag 1 BAG IVPB SCH ×4 (00:25→17:43)
[2018-04-20] MEDS: Acetaminophen 500 MG TAB PO PRN ×2 (04:50→16:18)
[2018-04-20 06:50] LABS: #Eosinphils 0.1 thou/uL (0.0-0.7); #Lymphocytes 1.5 thou/uL (1.20-3.40); #Monocytes 1.1 thou/uL (0.11-0.59); #Neutrophils 12.7 thou/uL (1.40-6.50); %Basophils 0.1 % (0.0-1.0); %Eosinophils 0.6 % (0.0-10.0); %Lymphocytes 9.6 % (21.0-51.0); %Monocytes 7.1 % (0.0-10.0); %Neutrophils 82.6 % (42.0-75.0); Hemoglobin 9.1 g/dL (14.0-18.0); Mean Corpuscular HGB CONC 31.7 g/dL (32.0-36.0); Mean Corpuscular Hemoglobin 23.7 pg (27.0-31.0); Mean Corpuscular Volume 74.8 fL (78.0-98.0); Mean Platelet Volume 7.5 fL (7.4-10.4); Platelet Count 300 thou/uL (130-400); RBC Distribution Width 15.6 % (11.5-14.5); Red Blood Cell (RBC) Count 3.85 mill/uL (4.70-6.10); White Blood Cell (WBC) Count 15.4 thou/uL (4.8-10.8)
[2018-04-20 07:21] LABS: Anion Gap 12 mmol/L (10-20); BUN (Urea Nitrogen) 14 mg/dL (8.4-25.7); Calc. Creatinine Clearance 69 mL/min (70-130); Calcium 9.1 mg/dL (7.8-10.44); Carbon Dioxide 18 mmol/L (22-29); Chloride 108 mmol/L (98-107); Estimated GFR-MDRD Greater than 90; Glucose 92 mg/dL (70-105); Potassium 3.4 mmol/L (3.5-5.1); Sodium 135 mmol/L (136-145)
[2018-04-20] MEDS: Famotidine 20 MG TAB PO SCH ×2 (08:08→21:57)
[2018-04-20] MEDS: Enoxaparin Sodium 40 MG/0.4 ML SYRINGE SC SCH (08:08)
[2018-04-20] MEDS: Polyethylene Glycol 3350 17 GM Packet PO SCH (08:08)
[2018-04-20] MEDS: pyridOXINE 50 MG (B6) TAB PO SCH (08:08)
[2018-04-20] MEDS: Lactated Ringer's 1,000 ML IV SCH ×2 (08:12→16:18)
[2018-04-20] MEDS: Mirtazapine 30 MG TAB PO SCH (21:57)
[2018-04-21] MEDS: metroNIDAZOLE 500 MG in Premix Bag 1 BAG IVPB SCH ×4 (00:16→17:33)
[2018-04-21] MEDS: Acetaminophen 500 MG TAB PO PRN ×3 (00:17→16:49)
[2018-04-21] MEDS: Lactated Ringer's 1,000 ML IV SCH ×3 (05:28→22:02)
[2018-04-21 07:57] LABS: #Eosinphils 0.2 thou/uL (0.0-0.7); #Lymphocytes 1.4 thou/uL (1.20-3.40); #Monocytes 0.9 thou/uL (0.11-0.59); #Neutrophils 10.5 thou/uL (1.40-6.50); %Eosinophils 1.7 % (0.0-10.0); %Lymphocytes 10.9 % (21.0-51.0); %Monocytes 6.8 % (0.0-10.0); %Neutrophils 80.6 % (42.0-75.0); Hemoglobin 9.9 g/dL (14.0-18.0); Mean Corpuscular HGB CONC 33.5 g/dL (32.0-36.0); Mean Corpuscular Hemoglobin 24.9 pg (27.0-31.0); Mean Corpuscular Volume 74.3 fL (78.0-98.0); Mean Platelet Volume 7.7 fL (7.4-10.4); Platelet Count 303 thou/uL (130-400); RBC Distribution Width 15.7 % (11.5-14.5); Red Blood Cell (RBC) Count 3.98 mill/uL (4.70-6.10)
[2018-04-21 08:18] LABS: Anion Gap 13 mmol/L (10-20); BUN (Urea Nitrogen) 16 mg/dL (8.4-25.7); Calc. Creatinine Clearance 71 mL/min (70-130); Carbon Dioxide 20 mmol/L (22-29); Chloride 108 mmol/L (98-107); Estimated GFR-MDRD Greater than 90; Glucose 81 mg/dL (70-105); Potassium 3.5 mmol/L (3.5-5.1); Sodium 137 mmol/L (136-145)
[2018-04-21] MEDS: pyridOXINE 50 MG (B6) TAB PO SCH (08:21)
[2018-04-21] MEDS: Famotidine 20 MG TAB PO SCH ×2 (08:21→20:37)
[2018-04-21] MEDS: Enoxaparin Sodium 40 MG/0.4 ML SYRINGE SC SCH (08:21)
[2018-04-21] MEDS: Polyethylene Glycol 3350 17 GM Packet PO SCH (08:22)
--- NOTE | 2018-04-21 12:51 | PDOC.PN ---
- Subjective Encounter Start Date: 04/21/18 Encounter Start Time: 12:49 Patient seen and examined - Objective Resuscitation Status - Order Detail: 04/16/18 16:43 Resuscitation Status Routine Co-Sign Provider: Resuscitation Status: FULL: Full Resuscitation Discussed with: Patient and family Vital Signs & Weight: Vital Signs (12 hours) Temp Pulse Resp BP BP Pulse Ox 04/21/18 09:00 98.2 F 68 18 121/79 97 04/21/18 07:21 100.6 F H 78 18 125/76 95 04/21/18 04:00 98.9 F 81 16 131/76 96 Weight Admit Weight 112 lb Weight 112 lb 14.4 oz I&O: 04/20/18 04/21/18 04/22/18 06:59 06:59 06:59 Intake Total 2064 3390 Output Total 300 Balance 2064 3090 Result Diagrams: 04/21/18 06:49 04/21/18 06:49 Phys Exam - Physical Examination Constitutional: NAD HEENT: PERRLA, moist MMs, sclera anicteric Neck: no nodes, no JVD, supple Respiratory: no wheezing, no rales, no rhonchi Cardiovascular: RRR, no significant murmur, no rub Gastrointestinal: soft, non-tender, no distention, positive bowel sounds Musculoskeletal: pulses present, edema present (trace) Dx/Plan (1) Proctitis Code(s): K62.89 - OTHER SPECIFIED DISEASES OF ANUS AND RECTUM Status: Acute Comment: trnasition to levoflox and flagyl to cover this and UTI (2) Sepsis Code(s): A41.9 - SEPSIS, UNSPECIFIED ORGANISM Status: Acute Qualifiers: Sepsis type: sepsis due to unspecified organism Qualified Code(s): A41.9 - Sepsis, unspecified organism Comment: suspect and presumed GNR from kleb UTI and proctitis (3) HLD (hyperlipidemia) Code(s): E78.5 - HYPERLIPIDEMIA, UNSPECIFIED Status: Chronic Qualifiers: Hyperlipidemia type: unspecified Qualified Code(s): E78.5 - Hyperlipidemia , unspecified (4) Weakness Code(s): R53.1 - WEAKNESS Status: Chronic - Plan * fever earlier today * will check UA, CXR and Blood cultures * cont current plan of care * labs in AM * DC plans once patient is afebrile x 24 hours * case and plan d/w patient and family at length, they understood and agreed with this plan
--- NOTE | 2018-04-21 14:47 | RAD ---
SINGLE VIEW OF THE CHEST: Comparison: 01-13-18 History: Cough FINDINGS: Single view of the chest shows a normal sized cardiomediastinal silhouette. Scarring is seen in the l eft apex. There may be a small left pleural effusion. No change has occurred compared to the prior ex am. IMPRESSION: Small left pleural effusion. POS: [facility]
[2018-04-21 16:21] LABS: Bilirubin Negative (Negative); Blood, Urine Negative (Negative); Clarity CLEAR (Clear); Glucose, Urine (Dipstick) Negative (Negative); Leukocyte Moderate (Negative); Nitrite Negative (Negative); Protein, Urine (Dipstick) Trace mg/dL (Neg-Trace); Specific Gravity, Urine 1.013 (1.002-1.036)
[2018-04-21 16:23] LABS: Bacteria/HPF None Seen HPF (None Seen); Hyaline Casts/LPF 0-3 HYALINE CAST LPF (0-3 Hyaline); Pathc Cast-AUWi Flag 0.14 (0-2.49); Squamous Epithelial 0-3 HPF (0-3)
[2018-04-21] MEDS: Mirtazapine 30 MG TAB PO SCH (20:37)
[2018-04-21] MEDS: Sodium Chloride 0.9% 1,000 ML IV SCH ×2 (20:54→21:13)
[2018-04-22] MEDS: metroNIDAZOLE 500 MG in Premix Bag 1 BAG IVPB SCH ×5 (00:24→23:34)
[2018-04-22] MEDS: Acetaminophen 500 MG TAB PO PRN ×3 (00:45→20:38)
[2018-04-22 07:09] LABS: #Eosinphils 0.4 thou/uL (0.0-0.7); #Monocytes 0.8 thou/uL (0.11-0.59); %Basophils 0.2 % (0.0-1.0); %Eosinophils 3.6 % (0.0-10.0); %Lymphocytes 16.2 % (21.0-51.0); %Monocytes 6.7 % (0.0-10.0); %Neutrophils 73.4 % (42.0-75.0); Hemoglobin 9.4 g/dL (14.0-18.0); Mean Corpuscular HGB CONC 32.6 g/dL (32.0-36.0); Mean Corpuscular Hemoglobin 24.8 pg (27.0-31.0); Mean Corpuscular Volume 75.9 fL (78.0-98.0); Mean Platelet Volume 7.5 fL (7.4-10.4); Platelet Count 349 thou/uL (130-400); RBC Distribution Width 15.6 % (11.5-14.5); Red Blood Cell (RBC) Count 3.79 mill/uL (4.70-6.10); White Blood Cell (WBC) Count 12.2 thou/uL (4.8-10.8)
[2018-04-22 07:10] LABS: Anion Gap 10 mmol/L (10-20); BUN (Urea Nitrogen) 16 mg/dL (8.4-25.7); Calc. Creatinine Clearance 72 mL/min (70-130); Carbon Dioxide 19 mmol/L (22-29); Chloride 110 mmol/L (98-107); Estimated GFR-MDRD Greater than 90; Glucose 80 mg/dL (70-105); Potassium 3.4 mmol/L (3.5-5.1); Sodium 136 mmol/L (136-145)
[2018-04-22] MEDS: pyridOXINE 50 MG (B6) TAB PO SCH (08:15)
[2018-04-22] MEDS: Enoxaparin Sodium 40 MG/0.4 ML SYRINGE SC SCH (08:15)
[2018-04-22] MEDS: Famotidine 20 MG TAB PO SCH ×2 (08:15→20:37)
[2018-04-22] MEDS: Ascorbic Acid 500 mg Chewable Tablet PO SCH (08:15)
[2018-04-22] MEDS: Polyethylene Glycol 3350 17 GM Packet PO SCH (08:15)
--- NOTE | 2018-04-22 11:36 | PDOC.PN ---
- Subjective Encounter Start Date: 04/22/18 Encounter Start Time: 11:34 Patient seen and examined, no new issues or complaints. - Objective Resuscitation Status - Order Detail: 04/16/18 16:43 Resuscitation Status Routine Co-Sign Provider: Resuscitation Status: FULL: Full Resuscitation Discussed with: Patient and family Vital Signs & Weight: Vital Signs (12 hours) Temp Pulse Resp BP Pulse Ox 04/22/18 07:28 97.8 F 81 18 107/71 95 04/22/18 04:00 99.8 F H 72 20 115/73 97 04/22/18 00:00 100.5 F H 80 20 114/73 94 L Weight Admit Weight 112 lb Weight 112 lb 14.4 oz I&O: 04/21/18 04/22/18 04/23/18 06:59 06:59 06:59 Intake Total 3390 4260 Output Total 300 Balance 3090 4260 Result Diagrams: 04/22/18 06:29 04/22/18 06:29 Phys Exam - Physical Examination Constitutional: NAD HEENT: PERRLA, moist MMs, sclera anicteric Neck: no nodes, no JVD, supple Respiratory: no wheezing, no rales, no rhonchi Cardiovascular: RRR, no significant murmur, no rub Gastrointestinal: soft, non-tender, no distention Dx/Plan (1) Proctitis Code(s): K62.89 - OTHER SPECIFIED DISEASES OF ANUS AND RECTUM Status: Acute Comment: trnasition to levoflox and flagyl to cover this and UTI (2) Sepsis Code(s): A41.9 - SEPSIS, UNSPECIFIED ORGANISM Status: Acute Qualifiers: Sepsis type: sepsis due to unspecified organism Qualified Code(s): A41.9 - Sepsis, unspecified organism Comment: suspect and presumed GNR from kleb UTI and proctitis (3) HLD (hyperlipidemia) Code(s): E78.5 - HYPERLIPIDEMIA, UNSPECIFIED Status: Chronic Qualifiers: Hyperlipidemia type: unspecified Qualified Code(s): E78.5 - Hyperlipidemia , unspecified (4) Weakness Code(s): R53.1 - WEAKNESS Status: Chronic - Plan * continues to have fevers, last night 100.5F * cont current abx and medical plan of care * DC plans once patient is afebrile for more than 24 hours * latest cultures thus far negative * case and plan d/w patient and family at length, in german, they understood and agreed with this plan.
[2018-04-22] MEDS: Lactated Ringer's 1,000 ML IV SCH ×2 (11:54→23:34)
[2018-04-22] MEDS: Mirtazapine 30 MG TAB PO SCH (20:38)
[2018-04-23] MEDS: metroNIDAZOLE 500 MG in Premix Bag 1 BAG IVPB SCH ×2 (05:21→12:54)
[2018-04-23 08:07] LABS: Anion Gap 13 mmol/L (10-20); BUN (Urea Nitrogen) 13 mg/dL (8.4-25.7); Calc. Creatinine Clearance 79 mL/min (70-130); Calcium 8.7 mg/dL (7.8-10.44); Carbon Dioxide 19 mmol/L (22-29); Chloride 108 mmol/L (98-107); Estimated GFR-MDRD Greater than 90; Glucose 83 mg/dL (70-105); Potassium 3.5 mmol/L (3.5-5.1); Sodium 136 mmol/L (136-145)
[2018-04-23] MEDS: Ascorbic Acid 500 mg Chewable Tablet PO SCH (08:37)
[2018-04-23] MEDS: pyridOXINE 50 MG (B6) TAB PO SCH (08:38)
[2018-04-23] MEDS: Famotidine 20 MG TAB PO SCH ×2 (08:38→20:40)
[2018-04-23] MEDS: Enoxaparin Sodium 40 MG/0.4 ML SYRINGE SC SCH (08:38)
[2018-04-23] MEDS: Polyethylene Glycol 3350 17 GM Packet PO SCH (08:38)
[2018-04-23 08:40] LABS: #Eosinphils 0.4 thou/uL (0.0-0.7); #Lymphocytes 1.7 thou/uL (1.20-3.40); #Monocytes 0.6 thou/uL (0.11-0.59); #Neutrophils 7.7 thou/uL (1.40-6.50); %Basophils 0.2 % (0.0-1.0); %Eosinophils 4.3 % (0.0-10.0); %Lymphocytes 16.1 % (21.0-51.0); %Monocytes 5.8 % (0.0-10.0); %Neutrophils 73.8 % (42.0-75.0); Hemoglobin 8.5 g/dL (14.0-18.0); Hypochromia SLIGHT = 6-15 cells (100X) (0-5/hpf); MDiff Complete? YES; Mean Corpuscular HGB CONC 33.2 g/dL (32.0-36.0); Mean Corpuscular Hemoglobin 24.8 pg (27.0-31.0); Mean Corpuscular Volume 74.7 fL (78.0-98.0); Mean Platelet Volume 7.3 fL (7.4-10.4); Microcytosis MODERATE=15-30 cells (100X) (0-5/hpf); Platelet Count 425 thou/uL (130-400); Platelet Morphology Comment Appears Increased; Polychromasia SLIGHT = 2-3 cells (100X) (0-2/hpf); RBC Distribution Width 15.4 % (11.5-14.5); Red Blood Cell (RBC) Count 3.44 mill/uL (4.70-6.10); White Blood Cell (WBC) Count 10.4 thou/uL (4.8-10.8)
[2018-04-23] MEDS: Acetaminophen 500 MG TAB PO PRN (08:40)
--- NOTE | 2018-04-23 11:01 | PDOC.PN ---
- Subjective Encounter Start Date: 04/23/18 Encounter Start Time: 10:58 Patient seen and examined, no new issues or complaint - Objective Resuscitation Status - Order Detail: 04/16/18 16:43 Resuscitation Status Routine Co-Sign Provider: Resuscitation Status: FULL: Full Resuscitation Discussed with: Patient and family Vital Signs & Weight: Vital Signs (12 hours) Temp Pulse Resp BP Pulse Ox 04/23/18 07:44 100.2 F H 74 18 105/66 93 L 04/23/18 04:00 98.4 F 04/23/18 00:00 98.6 F Weight Admit Weight 112 lb Weight 112 lb 14.4 oz I&O: 04/22/18 04/23/18 04/24/18 06:59 06:59 06:59 Intake Total 4260 3720 Balance 4260 3720 Result Diagrams: 04/23/18 06:52 04/23/18 06:52 Phys Exam - Physical Examination Constitutional: NAD HEENT: PERRLA, moist MMs, sclera anicteric Neck: no nodes, no JVD, supple Respiratory: no wheezing, no rales, no rhonchi Cardiovascular: RRR, no significant murmur, no rub Gastrointestinal: soft, non-tender, no distention, positive bowel sounds Musculoskeletal: no edema, pulses present Dx/Plan (1) Proctitis Code(s): K62.89 - OTHER SPECIFIED DISEASES OF ANUS AND RECTUM Status: Acute Comment: trnasition to levoflox and flagyl to cover this and UTI (2) Sepsis Code(s): A41.9 - SEPSIS, UNSPECIFIED ORGANISM Status: Acute Qualifiers: Sepsis type: sepsis due to unspecified organism Qualified Code(s): A41.9 - Sepsis, unspecified organism Comment: suspect and presumed GNR from kleb UTI and proctitis (3) HLD (hyperlipidemia) Code(s): E78.5 - HYPERLIPIDEMIA, UNSPECIFIED Status: Chronic Qualifiers: Hyperlipidemia type: unspecified Qualified Code(s): E78.5 - Hyperlipidemia , unspecified (4) Weakness Code(s): R53.1 - WEAKNESS Status: Chronic - Plan * continue current plan, continues to have fevers * consult to Lars for assistance, cultures repeat are negative * will obtain labs in AM * case and plan d/w patient at length, in turkmen, he understood and agreed with this plan.
--- NOTE | 2018-04-23 15:23 | CON ---
DATE OF CONSULTATION: REASON FOR CONSULTATION: Fever, flank pain, and dysuria. HISTORY OF PRESENT ILLNESS: A 57-year-old patient, whom I had seen recently when he presented with a history of cervical spine injury or lesion with partial quadriparesis and chronic worsening cough productive and progressive weight loss. He had cavitary lesions identified on x-rays and also developed a spontaneous pneumothorax and had a positive acid-fast in sputum 4+. He was discharged on 4- drug regimen for presumptive Mycobacterium tuberculosis infection; however, the final identification demonstrated Mycobacterium mucogenicum. To the best of my knowledge, I do not think he was ever converted to the proper regimen for this isolate and seems like he continued to be treated with the usual regimen for mycobacterium tuberculosis. At this time, he presents with new onset of right-sided flank pelvic pain, dysuria, and fever. He also has a chest wound, which appears to be still be draining serosanguineous fluid. No headaches, visual symptoms, sore throat, odynophagia, or dysphagia. Mild cough with some sputum production, mild chest pain on the right-sided side of the previous chest tube. No abdominal pain except for the right lower flank region, it is more like around the pelvis, right lower quadrant lateral aspect. The dysuria has subsided after admission. No joint symptoms. Quadriparesis unchanged. PAST MEDICAL HISTORY: C-spine lesion or injury with quadriparesis, cavitary lesions in lungs with diffuse ground-glass opacities with Mycobacterium mucogenicum, which has not been properly treated yet. The patient received treatment with a presumption of mycobacterium tuberculosis infection, but that has been not been confirmed. PAST SURGICAL HISTORY: Negative except for the chest tube placement. FAMILY HISTORY: Noncontributory. SOCIAL HISTORY: Never smoker. Lives with in the area. CURRENT MEDICATIONS: 1. P.R.N. medications. 2. Lovenox. 3. Pepcid. 4. Levofloxacin. 5. Flagyl. 6. Remeron. 8. Tramadol. PHYSICAL EXAMINATION: VITAL SIGNS: T-max 102.2, blood pressure 105/66, pulse 74, respirations 18, and O2 saturation 93%. SKIN: Fairly small and superficial wound in the presacral region. Peripheral IV access and urinating in the diaper. GENERAL: 112 pounds, chronically ill appearing. HEENT: No lymphadenopathy. Ocular movements conjugate. Oral cavity with numerous missing teeth. NECK: Supple. LUNGS: Coarse breath sounds. A few crackles scattered in right and left hemithorax. HEART: S1 and S2. Regular rate. ABDOMEN: Soft, not distended or tender. No ascites. : No bladder distention. No genital abnormalities. EXTREMITIES: No joint inflammatory activity. Pulses are 1+ in dorsalis pedis. Quadriparesis unchanged from prior exam. LABORATORY DATA: White cell count is down from 24,000 to 10,000, hemoglobin 8.5 , and platelets 425. Chemistry with a sodium 136, creatinine 0.76, bilirubin 0.5 , AST 18, ALT 7, alkaline phosphatase 112, albumin 3.8, and globulin 5.1. The patient 's previous HIV serology nonreactive. Had a positive QuantiFERON and cultures from the sputum with Mycobacterium mucogenicum retrieved. Chest x-ray with normal cardiomediastinal silhouette, scaring in left apex, small left pleural effusion, unchanged from last review. Abdomen and pelvis CT, loculated left basilar pleural fluid, adjacent atelectasis, severe chronic right hydronephrosis, circumferential inflammation of rectum age undetermined. Urinalysis is greater than 50 wbc's. Microbiology with E. coli from pleural fluid from December and now with Klebsiella. Urine culture with a broad susceptibility profile. ASSESSMENT: 1. Mycobacterium mucogenicum chronic lung disease, which has not yet been treated with appropriate antimicrobial therapy. 2. Previous right pleural fluid infection with E. coli. 3. Quadriparesis associated with cervical spine lesion or injury in the past. 4. Urinary tract infection with Klebsiella oxytoca and hydronephrosis. DISCUSSION: Mycobacterium mucogenicum is a rapid growing non-tuberculous mycobacterium and as others, resistant to the usual M. tuberculosis drugs. The patient needs treatment for mycobacterium mucogenicum and would recommend combination of clarithromycin plus levofloxacin daily for protracted period of time with followup sputum cultures. Probably will need treatment for at least a 1 year and a half. This will take care of the Klebsiella as well and he will need Urology consultation to evaluate the hydronephrosis to see if he needs stenting or cystoscopy. Job ID: [id number] [facility]
[2018-04-23] MEDS: Lactated Ringer's 1,000 ML IV SCH ×2 (16:59→20:41)
[2018-04-23] MEDS: Mirtazapine 30 MG TAB PO SCH (20:40)
[2018-04-23] MEDS ORDERED: Clarithromycin 500 MG TAB PO SCH (21:00)
[2018-04-24 07:09] LABS: Anion Gap 9 mmol/L (10-20); BUN (Urea Nitrogen) 14 mg/dL (8.4-25.7); Calc. Creatinine Clearance 79 mL/min (70-130); Calcium 8.7 mg/dL (7.8-10.44); Carbon Dioxide 23 mmol/L (22-29); Chloride 107 mmol/L (98-107); Estimated GFR-MDRD Greater than 90; Glucose 80 mg/dL (70-105); Potassium 3.5 mmol/L (3.5-5.1); Sodium 135 mmol/L (136-145)
[2018-04-24 07:10] LABS: #Eosinphils 0.5 thou/uL (0.0-0.7); #Lymphocytes 2.2 thou/uL (1.20-3.40); #Monocytes 0.8 thou/uL (0.11-0.59); #Neutrophils 6.2 thou/uL (1.40-6.50); %Basophils 0.1 % (0.0-1.0); %Eosinophils 4.9 % (0.0-10.0); %Lymphocytes 22.5 % (21.0-51.0); %Monocytes 8.1 % (0.0-10.0); %Neutrophils 64.4 % (42.0-75.0); Hemoglobin 8.8 g/dL (14.0-18.0); Mean Corpuscular HGB CONC 33.1 g/dL (32.0-36.0); Mean Corpuscular Hemoglobin 24.8 pg (27.0-31.0); Mean Corpuscular Volume 74.9 fL (78.0-98.0); Mean Platelet Volume 6.9 fL (7.4-10.4); Platelet Count 541 thou/uL (130-400); RBC Distribution Width 15.3 % (11.5-14.5); Red Blood Cell (RBC) Count 3.53 mill/uL (4.70-6.10); White Blood Cell (WBC) Count 9.6 thou/uL (4.8-10.8)
[2018-04-24 07:54] LABS: Hypochromia SLIGHT = 6-15 cells (100X) (0-5/hpf); MDiff Complete? YES; Microcytosis SLIGHT = 6-15 cells (100X) (0-5/hpf); Platelet Morphology Comment Appears Increased; Polychromasia SLIGHT = 2-3 cells (100X) (0-2/hpf)
[2018-04-24] MEDS: Lactated Ringer's 1,000 ML IV SCH ×2 (08:08→19:59)
[2018-04-24] MEDS: pyridOXINE 50 MG (B6) TAB PO SCH (08:10)
[2018-04-24] MEDS: Famotidine 20 MG TAB PO SCH ×2 (08:10→19:57)
[2018-04-24] MEDS: Ascorbic Acid 500 mg Chewable Tablet PO SCH (08:10)
[2018-04-24] MEDS: Polyethylene Glycol 3350 17 GM Packet PO SCH (08:12)
[2018-04-24] MEDS: Enoxaparin Sodium 40 MG/0.4 ML SYRINGE SC SCH (08:12)
[2018-04-24] MEDS: Clarithromycin 250 MG TAB PO SCH ×2 (08:14→19:57)
--- NOTE | 2018-04-24 14:41 | PDOC.PN ---
- Subjective Encounter Start Date: 04/24/18 Encounter Start Time: 14:40 Mr. Gregg was seen today in follow-up of UTI with sepsis. He does not have any complaints. - Objective Resuscitation Status - Order Detail: 04/16/18 16:43 Resuscitation Status Routine Co-Sign Provider: Resuscitation Status: FULL: Full Resuscitation Discussed with: Patient and family MAR Reviewed: Yes Vital Signs & Weight: Vital Signs (12 hours) Temp Pulse Resp BP BP Pulse Ox 04/24/18 11:26 97.7 F 04/24/18 11:13 65 15 102/63 97 04/24/18 08:00 99.3 F 64 04/24/18 07:27 99.3 F 64 18 94/61 97 04/24/18 04:00 98.1 F Weight Admit Weight 112 lb Weight 112 lb 14.4 oz I&O: 04/23/18 04/24/18 04/25/18 06:59 06:59 06:59 Intake Total 3720 3690 240 Output Total 440 Balance 3720 3250 240 Result Diagrams: 04/24/18 06:13 04/24/18 06:13 Phys Exam - Physical Examination HEENT: PERRLA Respiratory: no wheezing, no rales, no rhonchi, clear to auscultation bilateral Cardiovascular: RRR, no significant murmur, no rub Gastrointestinal: soft, non-tender, no distention, positive bowel sounds Musculoskeletal: no edema Dx/Plan (1) UTI (urinary tract infection) Status: Acute Qualifiers: Urinary tract infection type: acute cystitis Hematuria presence: without hematuria Qualified Code(s): N30.00 - Acute cystitis without hematuria (2) Sepsis Code(s): A41.9 - SEPSIS, UNSPECIFIED ORGANISM Status: Acute Qualifiers: Sepsis type: sepsis due to unspecified organism Qualified Code(s): A41.9 - Sepsis, unspecified organism Comment: suspect and presumed GNR from kleb UTI and proctitis (3) Mycobacterial disease, pulmonary Code(s): A31.0 - PULMONARY MYCOBACTERIAL INFECTION Status: Ruled-out Comment : not MTB. cultures removed - Plan * UTI- urine culture is growing Klebsiella- which is sensitive to Levaquin * Mycobaterium Mucogenicum- ID input appreciated- he will be discharged on Clarithromycin and Levaquin
[2018-04-24] MEDS: Mirtazapine 30 MG TAB PO SCH (19:57)
--- NOTE | 2018-04-25 00:23 | CON ---
DATE OF CONSULTATION: 04/24/2018 CONSULTING: Dr. Sousa. CONSULTED: Dr. Barboza. REASON FOR CONSULTATION: Hydronephrosis and possible pyelonephritis. HISTORY OF PRESENT ILLNESS: Mr. Gregg is a 57-year-old male with partial quadriplegia, who was admitted to the hospital for pneumonia. It was incidentally noted on his CT that he had a long-standing hydronephrosis, which had actually been noted on prior CT scans. The patient actually was not aware of this, but they became concerned when he came in with elevated white count, fevers, and feeling bad, although the primary source was most likely the pneumonia and the patient does have a history of tuberculosis and took an incomplete course of quadruple therapy. There was a question about whether or not anything needed to be done regarding the hydronephrotic kidney and whether or not there was an infection. The patient states that he urinates on his own. He actually can walk and use his left arm quite well. His right arm is fairly paralyzed and his legs are weak, but he can still ambulate. He states he urinates on his own without the need of assistance of a catheter. He does not endorse any significant difficulties, but he does have a little bit of urgency and frequency, which he states does not bother him. He has no history of recurrent urinary tract infections. Urine culture from April 16 demonstrates Klebsiella oxytoca, which was pansensitive except to Unasyn. Blood cultures are negative. He is currently receiving antibiotics and his white count has decreased from 15.7 down to 9.6. He is no longer febrile. He states he has no pain on his sides. He feels good. ALLERGIES: NSAIDS. CURRENT HOME MEDICATIONS: 1. Lovenox. 2. Pepcid. 3. Levaquin. 4. Flagyl. 5. Remeron. 6. Tramadol. PAST MEDICAL HISTORY: 1. C-spine lesion with partial quadriplegia. 2. Cavitary lesions in the lungs. 3. History of tuberculosis infection. PAST SURGICAL HISTORY: Chest tube placement. FAMILY HISTORY: Noncontributory. SOCIAL HISTORY: The patient lives with his family in [place], [place]. He denies smoking. He denies alcohol abuse or illicit drug use. REVIEW OF SYSTEMS: A 12-point review of systems is unremarkable other than the aforementioned quadriplegia. He does not endorse any flank pain, nausea, vomiting, fevers, chills, chest pain, or current shortness of breath. PHYSICAL EXAMINATION: VITAL SIGNS: Temperature 98.4, pulse 64, respirations 18, blood pressure 118/77, saturation 97% on room air. GENERAL: No apparent distress, communicative and alert, can speak Malian, but preferentially speaks Marshallese. HEENT: Normocephalic, atraumatic. Sclerae nonicteric. Pupils are symmetric and round. Trachea midline. Moist mucous membranes. CARDIOVASCULAR: Regular rate and rhythm. Normal S1 and S2. Symmetric pulses. CHEST: Coarse breath sounds with bilateral crackles. No increased work of breathing. Symmetric expansion of the lungs. ABDOMEN: Soft, nontender, nondistended. Positive bowel sounds. No organomegaly. No rebound, guarding, or peritoneal signs. : Deferred as the patient is currently wearing a diaper and has difficulty with mobility to take it off. EXTREMITIES: Somewhat thin, but no clubbing, cyanosis, or edema. MUSCULOSKELETAL: No obvious joint deformities or joint erythema noted. No contractures. Limited range of motion of his upper extremities and lower extremities. NEUROLOGIC: Cranial nerves 2-12 grossly intact. There is significant paralysis of his right arm. He has better function of his left arm, but that also has some decreased sensation. The patient has good movement of his lower extremities, but they do have mild weakness. SKIN: Warm and dry. Good turgor. No rashes or lesions. PSYCHIATRIC: Alert and oriented x3. Appropriate mood and affect. LABORATORY DATA: On laboratory evaluation, a full set of labs are in the [facility], which I have reviewed. Of note, the patient's white count is 9.6 with a hemoglobin of 8.8. Creatinine is currently 0.76. Most recent urinalysis demonstrates greater than 50, pnq-ursbtirk-ox-count white cells with moderate leukocyte esterase, 4-6 rbc's, nitrite negative. Urine culture, again is growing Klebsiella from April 16. The blood cultures are negative. CT from April 16 demonstrates right lower quadrant pain, not confirmed on CT scan. There is a loculated left basilar pleural effusion with adjacent atelectasis, which may represent a chronic process. This was partially visualized on CT from January 2018, severe chronic right hydronephrosis and on my review, there is no significant perinephric stranding. 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 No urolithiasis noted other than some layering and sediment within the kidney. Circumferential inflammation of the rectum with indeterminate age. ASSESSMENT AND PLAN: 57-year-old male with partial quadriplegia with chronic hydronephrosis, which has been present for several years. Given the thinning of the parenchyma, it is so thin that it is extremely unlikely that his kidney even functions at all. His creatinine is normal and he has a normal contralateral kidney. He has no tenderness and his white count is decreasing nicely. He is afebrile. At this point, I do not think it is a good idea to introduce any further instruments into his left collecting system, as this could potentially infect a sterile system. He does not have any evidence to suggest that he has pyelonephritis currently. 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 Should he develop an infection on that side or have worsening white count, or proof of infection within the kidney, a nephrectomy could be performed, but this would be morbid on someone with quadriplegia. For my recommendation, I would recommend just continuing his antibiotic therapy for potential lung infection and continuing treatment per Dr. Sousa for any potential incomplete treatment of tuberculosis or other mycobacterial process. He did appear to have a urinary tract infection isolated to the bladder, but it is extremely unlikely this had ascended up into the kidney. It is possible his right lower quadrant pain was simply a lower urinary tract infection. This could be treated for a complicated urinary tract infection with 7 days of antibiotics, but I do not think anything further needs to be done at this time. The patient should probably follow up with me as an outpatient as he would benefit from urodynamics as generally most patients with spinal cord injuries have fairly significant voiding problems and although he states he is voiding well, he may not be voiding as well as he thinks he is and it would be prudent to go ahead and set him up for urodynamics as an outpatient. I can see him at that point, but from this admission, I do not think anything further needs to be done. Job ID: [id number]
[2018-04-25 07:52] LABS: Hemoglobin 8.6 g/dL (14.0-18.0); Mean Corpuscular HGB CONC 32.4 g/dL (32.0-36.0); Mean Corpuscular Hemoglobin 24.2 pg (27.0-31.0); Mean Corpuscular Volume 74.8 fL (78.0-98.0); Mean Platelet Volume 6.8 fL (7.4-10.4); Platelet Count 694 thou/uL (130-400); RBC Distribution Width 14.9 % (11.5-14.5); Red Blood Cell (RBC) Count 3.56 mill/uL (4.70-6.10); White Blood Cell (WBC) Count 8.7 thou/uL (4.8-10.8)
[2018-04-25 08:03] LABS: Anion Gap 10 mmol/L (10-20); BUN (Urea Nitrogen) 12 mg/dL (8.4-25.7); Calc. Creatinine Clearance 78 mL/min (70-130); Calcium 8.9 mg/dL (7.8-10.44); Carbon Dioxide 22 mmol/L (22-29); Chloride 107 mmol/L (98-107); Estimated GFR-MDRD Greater than 90; Glucose 84 mg/dL (70-105); Potassium 3.9 mmol/L (3.5-5.1); Sodium 135 mmol/L (136-145)
[2018-04-25] MEDS: Polyethylene Glycol 3350 17 GM Packet PO SCH (08:48)
[2018-04-25] MEDS: Ascorbic Acid 500 mg Chewable Tablet PO SCH (08:50)
[2018-04-25] MEDS: Famotidine 20 MG TAB PO SCH (08:50)
[2018-04-25] MEDS: pyridOXINE 50 MG (B6) TAB PO SCH (08:51)
[2018-04-25] MEDS: Enoxaparin Sodium 40 MG/0.4 ML SYRINGE SC SCH (08:52)
[2018-04-25] MEDS ORDERED: Clarithromycin 500 MG TAB PO SCH (09:00)
[2018-04-25 09:14] LABS: Band 10 % (5-11); Eosinophils 3 % (0-10); Hypochromia SLIGHT = 6-15 cells (100X) (0-5/hpf); Lymphocytes 32 % (21-51); MDiff Complete? YES; Microcytosis SLIGHT = 6-15 cells (100X) (0-5/hpf); Monocytes 11 % (0-10); Myelocyte 2 % (0-0); Neutrophil 39 % (42-75); Platelet Morphology Comment Appears Increased; Polychromasia SLIGHT = 2-3 cells (100X) (0-2/hpf); Reactive Lymphocytes 3 % (0-10)
[2018-04-25 11:26] VITALS: BP 103/65; TEMP 98.3
--- NOTE | 2018-04-26 07:34 | DIS ---
DATE OF ADMISSION: 04/16/2018 DATE OF DISCHARGE: 04/25/2018 PRIMARY CARE PHYSICIAN: Dr. Ling. DISCHARGE DIAGNOSES: 1. Urinary tract infection with sepsis. 2. Mycobacterium mucogenicum infection. 3. Functional quadriplegia. 4. Proctitis. DISCHARGE MEDICATIONS: Include: 1. Clarithromycin 500 mg twice daily. 2. Levofloxacin 500 mg daily and this is for an extended period of time to be determined by Dr. Sousa. 3. Pyridoxine 50 mg daily. 4. MiraLAX 17 g daily. 5. Remeron 30 mg at bedtime. 6. Fish oil 1000 mg daily. 7. Pepcid 20 mg twice daily. 8. Docusate 100 mg twice a day as needed. 9. Tums 1000 mg q.4 hours as needed. 10. Vitamin C 1000 mg daily. 11. Zofran 4 mg q.6 hours as needed. 12. Melatonin 3 mg at bedtime. 13. Vitamin D 2000 units daily. 14. Tylenol 1000 mg at bedtime. PROCEDURES DONE DURING THE ADMISSION: The patient had a CT scan of the abdomen and pelvis with IV contrast that showed a loculated left basilar pleural effusion. It is a chronic process and partially visualized in the CT scan from 01/25/2018, severe chronic right hydronephrosis. There is circumferential inflammation of the rectum consistent with proctitis. ALLERGIES: NSAIDS. HOSPITAL COURSE: Mr. Gregg is a 57-year-old gentleman who was admitted by the Family Practice service for complaints of fever and flank pain. He was found to have a urinary tract infection with sepsis. The urine culture grew Klebsiella oxytoca, which was sensitive to quinolones. He also had some low-grade fever and it was discovered that he had not been treated completely for a mycobacterial infection. Dr. Sousa was consulted and it was discovered that the final cultures from a previous encounter had grown and the ideal treatment for this would be levofloxacin and clarithromycin, which he had not been taking. Therefore, this was started during his hospital stay here and will continue on into the outpatient setting. Also due to the hydronephrosis, he was seen by Urology prior to discharge and it was recommended that he undergo outpatient urodynamics and would not need an inpatient workup at this time. The patient will be discharged back to the [facility] on 04/25/2018. Job ID: [id number]
== END 2018-04-25 11:27 | DRG 872 ==
LOC: ERS 13:03 → ERHOLD 16:00 → T4-A 22:04
PROVIDERS: ADMIT Student in an Organized Health Care Education/Training Program; ATTEND Internal Medicine
DX: A41.9 Sepsis, unspecified organism (principal); N39.0 Urinary tract infection, site not specified; I69.359 Hemiplegia and hemiparesis following cerebral infarction affecting unspecified side; G95.20 Unspecified cord compression; N13.30 Unspecified hydronephrosis; M48.02 Spinal stenosis, cervical region; K62.89 Other specified diseases of anus and rectum; D63.8 Anemia in other chronic diseases classified elsewhere; E78.5 Hyperlipidemia, unspecified; B96.1 Klebsiella pneumoniae [K. pneumoniae] as the cause of diseases classified elsewhere; Z86.11 Personal history of tuberculosis
CPT/HCPCS: 36415; 36416; 71045; 74177; 80048; 80053; 81003; 81015; 83605; 83735; 85025; 85060; 87040; 87077; 87086; 87186; 87804; 93005; 96361; 96365; 96367; J0696; J1650; J1956; J3370

== ENCOUNTER 2018-11-29 08:45 | Inpatient (IN) | payer MEDICARE, MEDICAID ==
[2018-11-29 09:55] LABS: #Eosinphils 0.4 thou/uL (0.0-0.7); #Lymphocytes 2.3 thou/uL (1.20-3.40); #Monocytes 0.5 thou/uL (0.11-0.59); %Basophils 0.6 % (0.0-1.0); %Eosinophils 6.5 % (0.0-10.0); %Lymphocytes 36.7 % (21.0-51.0); %Monocytes 8.1 % (0.0-10.0); %Neutrophils 48.1 % (42.0-75.0); Hemoglobin 13.4 g/dL (14.0-18.0); Mean Corpuscular HGB CONC 32.9 g/dL (32.0-36.0); Mean Corpuscular Hemoglobin 24.8 pg (27.0-31.0); Mean Corpuscular Volume 75.4 fL (78.0-98.0); Mean Platelet Volume 6.7 fL (7.4-10.4); Platelet Count 230 thou/uL (130-400); RBC Distribution Width 13.4 % (11.5-14.5); White Blood Cell (WBC) Count 6.2 thou/uL (4.8-10.8)
[2018-11-29 10:17] LABS: ALT (SGPT) 11 U/L (8-55); AST (SGOT) 19 U/L (5-34); Albumin 4.1 g/dL (3.5-5.0); Alkaline Phosphatase 114 U/L (40-150); Anion Gap 13 mmol/L (10-20); BUN (Urea Nitrogen) 12 mg/dL (8.4-25.7); Bilirubin, Total 0.4 mg/dL (0.2-1.2); Calc. Creatinine Clearance 0 mL/min (70-130); Calcium 9.6 mg/dL (7.8-10.44); Carbon Dioxide 21 mmol/L (22-29); Chloride 109 mmol/L (98-107); Estimated GFR-MDRD 80; Globulin 3.2 g/dL (2.4-3.5); Glucose 86 mg/dL (70-105); Potassium 4.2 mmol/L (3.5-5.1); Protein, Total 7.3 g/dL (6.0-8.3); Sodium 139 mmol/L (136-145)
--- NOTE | 2018-11-29 10:57 | CT ---
CT CHEST WITH CONTRAST: INDICATION: Chest pain, throat pain for 4 days. FINDINGS: There is multifocal abnormal interstitial and alveolar opacity of the lungs with multifocal cavitary lesions, most pronounced at the apices, and on the right there is a large air-fluid level. A convex, nondependent pleural fluid collection of the posterior lateral left hemithorax is present wit h adjacent atelectasis. Given the morphology, this may be on the basis of an empyema. The thoracic aorta is unremarkable. No pneumothorax. There are mildly prominent lymph nodes of the chest. IMPRESSION: Multifocal abnormal parenchymal opacities favoring an atypical infectious/inflammatory process. Promi nent cavitary lesions at each lung apex are present, and on the right this contains a large air-fluid level. Correlate clinically to exclude atypical infection given this imaging appearance. Imaging follow-up is also recommended. Transcribed Date/Time: 11/29/2018 11:02 AM
--- NOTE | 2018-11-29 10:58 | CT ---
Exam: POSTCONTRAST SOFT TISSUE NECK CT: HISTORY: Throat pain, x4 days. COMPARISON: None. FINDINGS: Visualized brain parenchyma is unremarkable. Visualized orbits are unremarkable. Adequate aeration visualized sinuses and mastoid air cells. Limited evaluation of the oral cavity due to dental amalgam artifact. Midline fatty raphae of the ton chace is preserved. No obvious masses within the oral cavity. Epiglottis has a normal caliber. Preepiglottic fat is preserved. The supraglottic, glottic and subglo ttic larynx are grossly unremarkable. Evaluation is limited due to motion degradation. Symmetric attenuation of the parotid and submandibular glands. Symmetric attenuation of sternocleidomastoid muscle. Grossly the great vessels of the neck are patent. Limited evaluation due to technique. No evidence of lymphadenopathy by size criteria. Exaggeration of normal cervical lordosis, presumed to be positional. Varying degrees of central canal stenosis and neural foraminal narrowing due to degenerative change. There appears to be a large bulla with an air-fluid level of the right lung apex. Additional bullous change is noted in the left lung apex. Chronic changes in the visualized lung parenchyma. Refer to separate chest CT report for further detail. IMPRESSION: 1. Patent aerodigestive tract. 2. Changes in the visualized lung parenchyma, incompletely evaluated. Refer to separate chest CT repo rt for further detail. Transcribed Date/Time: 11/29/2018 11:11 AM
[2018-11-29] MEDS ORDERED: ISOVUE-370 76%-LOCM 1 ML ONE (13:54)
[2018-11-29] MEDS ORDERED: Acetaminophen 325 MG TAB PO PRN ×2 (15:45→15:59)
[2018-11-29] MEDS ORDERED: HYDROcodone/Acetaminophen 5/325 mg Tablet PO PRN ×2 (15:45)
[2018-11-29] MEDS ORDERED: Ondansetron ODT 4 MG TAB SL PRN (15:45)
[2018-11-29] MEDS ORDERED: Ondansetron PF 4 MG/2 ML Vial IVP PRN (15:45)
[2018-11-29] MEDS ORDERED: hydrALAZINE 20 MG/ML VIAL SLOW IVP PRN (15:59)
[2018-11-29 17:19] VITALS: BMI 21.6
--- NOTE | 2018-11-29 20:18 | HP ---
PRIMARY CARE PHYSICIAN: Dr. Quiles. CHIEF COMPLAINT: Coughing or spitting up blood. HISTORY OF PRESENT ILLNESS: Mr. 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 He was in his usual state of health until about 3 or 4 days ago, when he started noticing that he was spitting up some blood. He said he also had a little bit of chest pain as well. He says he really has not had that much cough. However, it was concerning that he noticed some blood and for this reason, he came to the ER for evaluation. He describes the blood as dark brown in color. He says that it is not a lot of blood. He denies any pain in his chest. No shortness of breath. No fevers or chills. No weight loss. In the emergency room, he underwent evaluation. A CT scan of the chest was done and was compared to a previous CAT scan done approximately 7 months ago and on this time, there was concern for possible cavitary lesions at the apexes and for this reason, he is being admitted for further evaluation. REVIEW OF SYSTEMS: CONSTITUTIONAL: There has been no fevers or chills. No night sweats. No weight loss. HEENT: No headaches. No dizziness. No visual changes. No sore throat or rhinorrhea. NECK: No neck pain. No adenopathy. PULMONARY: As history of present illness. CARDIOVASCULAR: He denies any chest pain. No shortness of breath. No PND. No orthopnea. No lower extremity edema. GASTROINTESTINAL: No abdominal pain. No nausea. No vomiting. No change in bowels. GENITOURINARY: No urinary frequency or hematuria. No hesitancy. MUSCULOSKELETAL: No muscle pains or joint pains. SKIN AND INTEGUMENT: No skin changes. No rash. PSYCHIATRIC: No symptoms of anxiety or depression. ENDOCRINE: No heat or cold intolerance. PAST MEDICAL HISTORY: Significant for Mycobacterium mucogenicum infection. 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 PAST SURGICAL HISTORY: He has had a chest tube placed. FAMILY HISTORY: No history of any heritable diseases in the family. SOCIAL HISTORY: He is . He is a nonsmoker and nondrinker. He has 2 children. Does not use any illicit drugs. ALLERGIES: NO KNOWN DRUG ALLERGIES. CURRENT MEDICATIONS: He says he is taking 4 antibiotics. He is not really sure of the names, but he also says he takes vitamin D, vitamin C, and fish oil along with that. PHYSICAL EXAMINATION: GENERAL: He is alert and oriented. He appears to be in no acute distress. He is chronically ill in appearance. VITAL SIGNS: Blood pressure is 139/84, heart rate 69, respiratory rate of 22, temperature is 98.4, and O2 saturation 98% on room air. HEENT: Pupils are equal, round, and reactive. Extraocular muscles are intact. His sclerae are anicteric. Throat, there is no erythema, no exudates. NECK: No adenopathy. No bruits. LUNGS: He has rales throughout both lung pang. There is no wheezing, no rhonchi. Normal excursion. CARDIOVASCULAR: He has a normal S1 and S2. There is no S3 or S4. No murmurs, clicks, or rubs. ABDOMEN: Soft. It is nontender and nondistended. Positive for bowel sounds. There is no rebound or guarding. EXTREMITIES: He does have some mild muscle atrophy in both lower extremities. There are no joint effusions. No crepitus. NEUROLOGIC: He is able to move all extremities, however, he is much weaker in the lower extremities. SKIN AND INTEGUMENT: No skin changes. No rashes. LABORATORY DATA: Sodium is 139, potassium 4.2, chloride is 109, CO2 is 21, BUN of 12, creatinine 0.97, and glucose is 86. White blood cell count 6.2, hemoglobin 13.4, hematocrit is 40.7, and platelet count is 230. CT scan of the chest showed multifocal abnormal parenchymal opacities favoring atypical infectious or inflammatory process and then there is a prominent cavitary lesions in both lung apexes with the right containing an air-fluid level. ASSESSMENT: This is a pleasant 58-year-old gentleman, who presents with hemoptysis and CT evidence of apical cavitary lesions. This is consistent with possible progression of his atypical TB infection. We will admit him to the medical floor. 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 Consult Dr. Sousa for further recommendations as well as it was communicated to me that Dr. Sousa had requested that the patient also see Pulmonology with regard to possible bronchoscopy. The patient will also be placed on deep venous and gastrointestinal prophylaxis and the patient will also be placed on pulmonary isolation and further recommendations to follow. Job ID: [id number]
[2018-11-29] MEDS: Heparin 5,000 UNITS/ML VIAL SC SCH (21:04)
[2018-11-30 05:41] LABS: #Eosinphils 0.5 thou/uL (0.0-0.7); #Lymphocytes 2.9 thou/uL (1.20-3.40); #Monocytes 0.4 thou/uL (0.11-0.59); #Neutrophils 2.6 thou/uL (1.40-6.50); %Basophils 0.6 % (0.0-1.0); %Eosinophils 7.8 % (0.0-10.0); %Lymphocytes 44.4 % (21.0-51.0); %Monocytes 6.3 % (0.0-10.0); %Neutrophils 40.8 % (42.0-75.0); Hemoglobin 13.9 g/dL (14.0-18.0); Mean Corpuscular HGB CONC 33.5 g/dL (32.0-36.0); Mean Corpuscular Hemoglobin 25.4 pg (27.0-31.0); Mean Corpuscular Volume 75.6 fL (78.0-98.0); Mean Platelet Volume 6.9 fL (7.4-10.4); Platelet Count 247 thou/uL (130-400); RBC Distribution Width 13.6 % (11.5-14.5); Red Blood Cell (RBC) Count 5.46 mill/uL (4.70-6.10); White Blood Cell (WBC) Count 6.4 thou/uL (4.8-10.8)
[2018-11-30 06:01] LABS: Anion Gap 13 mmol/L (10-20); BUN (Urea Nitrogen) 13 mg/dL (8.4-25.7); Calc. Creatinine Clearance 71 mL/min (70-130); Calcium 9.8 mg/dL (7.8-10.44); Carbon Dioxide 22 mmol/L (22-29); Chloride 107 mmol/L (98-107); Estimated GFR-MDRD 81; Glucose 89 mg/dL (70-105); Potassium 4.1 mmol/L (3.5-5.1); Sodium 138 mmol/L (136-145)
[2018-11-30] MEDS: Heparin 5,000 UNITS/ML VIAL SC SCH ×3 (08:35→21:18)
--- NOTE | 2018-11-30 10:12 | CON ---
DATE OF CONSULTATION: 11/30/2018 SERVICE: Pulmonary Medicine. REASON FOR CONSULT: Hemoptysis, bronch requested by Dr. Sousa. 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 He is recovering very nicely from that, but recently, he had a CT of the chest. On that, he had significant infiltrate in the biapical regions. There was an air-fluid level on the right apex cavitary lesion. Dr. Sousa is requesting bronchoscopy. We thought about doing this in the outpatient setting, but unfortunately, the patient has previously been lost to follow up. As such, we thought it is prudent to get our information as soon as possible. He has no complaints of nausea or vomiting. He is having a little bit of a cough and bringing out. On occasion, he has brought blood, but that has gotten better here recently. He denies any current fevers or chills. He is not having any night sweats. He is actually putting weight on ever since he has been on appropriate therapy for the Mycobacterium disease. Otherwise, he is in his usual state of health and has no specific complaints. PAST MEDICAL HISTORY: 1. Mycobacterium mucogenicum. 2. 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 PAST SURGICAL HISTORY: History of chest tube placement. FAMILY HISTORY: Noncontributory. SOCIAL HISTORY: The patient is . He does not use any alcohol, tobacco, or illicit drug use. He has no exposure to chemicals, dust, or asbestos. He has never had tuberculosis or has been exposed to it, so far as he is aware of. ALLERGIES: NO KNOWN DRUG ALLERGIES. MEDICATIONS: List of his inpatient medications were reviewed. No updates were made to this medication list at this point. REVIEW OF SYSTEMS: General; head, eyes, ears, nose, and throat; cardiovascular, respiratory, GI, , musculoskeletal, neurologic, and skin is negative, except as mentioned in the HPI. PHYSICAL EXAMINATION: VITAL SIGNS: Afebrile, pulse 62, blood pressure 105/72, respirations 20, and saturation 97% on room air. GENERAL: The patient is awake and alert, in no apparent distress. LUNGS: Very good air entry with no prolonged expiratory phase or wheezing present. HEART: Normal rate and regular. ABDOMEN: Soft, nontender, nondistended. Bowel sounds are positive. MUSCULOSKELETAL: No cyanosis or clubbing. No pitting in the bilateral lower extremities. NEUROLOGIC: Grossly nonfocal. LABORATORY DATA: WBC 6.4, hemoglobin 13.9, platelets 247,000. Basic metabolic profile is otherwise unremarkable. IMAGING STUDIES: CT of the chest demonstrates extensive fiber cavitary disease in the biapical region. There is an air-fluid level present. Tree-in-bud opacifications are present throughout the biapical distribution. He has scar tissue on the left/pleural thickening, where he previously had a chest tube in for a protracted course. There is some scarring in tenting of the left lung to the diaphragm itself. I do not see any obvious infiltrates or acute process. Of note, the entirety of the right upper lobe is completely atelectatic. ASSESSMENT: 1. Chronic Mycobacterium infection, on appropriate therapy. 2. Air-fluid level in the right apical pulmonary cavity. 3. Hemoptysis. DISCUSSION AND PLAN: Dr. Sousa has requested a bronchoscopy. As such, we will do this with a BAL. If we see anything of concern, endobronchial biopsies, and brushing will be considered. After the procedure is completed, the patient is doing well , he will have no further requirements for inpatient Pulmonary Critical Care opinion , and I will sign off. If this infection proves quite difficult to clear, I think he will tolerate a right upper lobectomy quite well. If necessary, this should be considered. 70 minutes have been devoted to this patient in various activities. I personally reviewed all imaging studies and laboratory data noted within this document. For fifty percent of this time, I was interacting with the patient at the bedside or coordinating care with the care team. For the remainder of the time I was immediately available to the patient in the hospital unit. Job ID: [id number] [facility]
--- NOTE | 2018-11-30 11:03 | PDOC.HOSPP ---
- Subjective Encounter Date: 11/30/18 Encounter Time: 11:02 Subjective: The patient doing fine, still coughing up blood occassionally - Objective Vital Signs & Weight: Vital Signs (12 hours) Temp Pulse Resp BP Pulse Ox 11/30/18 07:45 98.0 F 62 20 105/72 97 11/30/18 03:06 97.7 F 66 16 104/64 98 11/29/18 23:05 98.5 F 66 16 123/81 100 Weight Weight 130 lb I&O: 11/29/18 11/30/18 12/01/18 06:59 06:59 06:59 Output Total 1200 Balance -1200 Result Diagrams: 11/30/18 05:20 11/30/18 05:20 ROS - Medication Medications: Active Medications Generic Name Dose Route Start Last Admin Trade Name Freq PRN Reason Stop Dose Admin Heparin Sodium (Porcine) 5,000 units 11/29/18 21:00 11/30/18 08:35 Heparin SC Not Given TID NASIR - Exam NAD, awake alert, ill appearing Eye: PERRL, anicteric sclera, scleral icterus ENT: normocephalic atraumatic, no oropharyngeal lesions, moist mucosa, dry oral mucosa Neck: supple, symmetric, no JVD, no thyromegaly, no lymphadenopathy, no carotid bruit, JVD Heart: RRR, no murmur, no gallops, no rubs, normal peripheral pulses, irregular , diminshed peripheral pulses, murmur present, II/IV, III/IV Respiratory: CTAB, no wheezes, no rales, no ronchi, normal chest expansion, no tachypnea, normal percussion, rales, rhonchi, tachypneic, wheezes Gastrointestinal: soft, non-tender, non-distended, normal bowel sounds, no palpable masses, no hepatomegaly, no splenomegaly, no bruit, no guarding, no rigidity, tender to palpation, distended, diminished bowl sounds, voluntary guarding Hosp A/P (1) Tuberculosis Code(s): A15.9 - RESPIRATORY TUBERCULOSIS UNSPECIFIED Status: Acute (2) Hemoptysis Code(s): R04.2 - HEMOPTYSIS Status: Acute - Plan plan discussed w/ family, continue antibiotics (ID and pulmonolgy consulted) Consults: other (pulmonology and ID)
[2018-11-30 12:20] LABS: BF Color Colorless; BF RBC Count - Manual 112 /cumm; BF WBC/Nonhematics Ct. - Manua 262 /cumm; Body Fluid Source Bronchial Washings; Clarity Hazy (Clear); Tube # EDTA
[2018-11-30 12:23] LABS: BF Segmented Neutrophils 48 %; Cell Count Non Hematic 44 %; Eosinophils 6 %; Lymphocytes 2 %
[2018-11-30] MEDS ORDERED: PROPOFOL 200 MG/20 ML VIAL ONE (13:34)
[2018-11-30] MEDS ORDERED: Melatonin 3 MG TAB PO PRN (13:34)
[2018-11-30] MEDS ORDERED: Ondansetron PF 4 MG/2 ML Vial ONE (13:34)
[2018-11-30] MEDS ORDERED: Docusate 100 MG CAP PO PRN (13:34)
[2018-11-30] MEDS ORDERED: Succinylcholine Chloride 20 MG/ML 10 ml SYRINGE FS ONE (13:34)
[2018-11-30] MEDS ORDERED: Rocuronium Bromide 10 MG/ML (10ML VIAL) ONE (13:34)
[2018-11-30] MEDS ORDERED: Calcium Carbonate 500 MG ChewTAB PO PRN (13:34)
[2018-11-30] MEDS ORDERED: PHENYLEPHRINE-NS 100 MCG/ML 10 ML SYRINGE ONE (13:34)
[2018-11-30] MEDS ORDERED: Mirtazapine 30 MG TAB PO SCH (21:00)
--- NOTE | 2018-11-30 21:06 | OP ---
DATE OF PROCEDURE: 11/30/2018 SERVICE: Pulmonary Medicine. PROCEDURE PERFORMED: Fiberoptic bronchoscopy with 1. Visual airway inspection. 2. Bronchoalveolar lavage from the right upper lobe. PREPROCEDURE DIAGNOSES: 1. Pulmonary infiltrate. 2. Pulmonary cavity with air-fluid level. POSTPROCEDURE DIAGNOSES: 1. Pulmonary infiltrate. 2. Pulmonary cavity with air-fluid level. MEDICATIONS: General anesthesia. PREANESTHESIA ASSESSMENT: H and P had been performed. The patient's medications and allergies were reviewed. Informed consent was obtained after discussing the risks, benefits, and rationale for performing the procedure as well as alternative options. DESCRIPTION OF PROCEDURE: Time-out was performed identifying the correct procedure and patient name, date of . A diagnostic fiberoptic bronchoscope was introduced through the 8.0 endotracheal tube. The bronchoscope was advanced into the trachea, where a tracheobronchial tree inspection was carried out. There was clear identification of the right upper lobe takeoff, right middle lobe, right lower lobe, left upper lobe, lingula, and left lower lobe. The anatomy was significantly distorted throughout bilateral lung pagn. There appeared to be a blind opening into the posterior segment of the right upper lobe, and a portion of the anterior segment of the right upper lobe. I believe the superior segment of the right upper lobe was patent. Significant secretions were present throughout bilateral lung pang. His bronchial tubes were significantly friable, but I did not see any obvious endobronchial disease or bleeding nidus. A BAL was obtained from the right upper lobe. The bronchoscope was subsequently removed from the patient. FINDINGS: 1. Heavy, purulent secretions existed throughout bilateral lung pang. These were suctioned. 2. A dedicated BAL was obtained from the right upper lobe. 3. Mucosa was quite friable. 4. No endobronchial disease was identified. 5. Postsurgical changes of the right upper lobe bronchus were identified. SPECIMENS OBTAINED: 1. Pathology on BAL. 2. Microbiology on BAL. COMPLICATIONS: None. ESTIMATED BLOOD LOSS: None. FLUOROSCOPY TIME: 0 minutes. DISPOSITION: The patient will be transitioned back to the floor after he meets criteria in the postanesthesia care unit. Job ID: [id number]
[2018-11-30] MEDS: Clarithromycin 250 MG TAB PO SCH (21:18)
[2018-11-30] MEDS: Famotidine 20 MG TAB PO SCH (21:18)
--- NOTE | 2018-12-01 00:43 | CON ---
DATE OF CONSULTATION: 11/30/2018 REASON FOR CONSULTATION: Atypical mycobacterial lung infection and hemoptysis. 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 After initiation of quinolone and macrolide, the patient has displayed significant clinical improvement, cessation of cough and sputum production over the past few months. The plan is for a total of a year and a half of treatment, but now he has developed hemoptysis and he was admitted to evaluate that with bronchoscopy. He is feeling well now, had the procedure done by Dr. Arriola. He denies any headaches, no dyspnea, no cough, no more hemoptysis, no abdominal pain, and no genitourinary symptoms. 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 Prior chest tube placement for management of spontaneous pneumothorax. FAMILY HISTORY: Noncontributory. SOCIAL HISTORY: Never a smoker, lives with . MEDICATIONS: 1. Tylenol. 2. Vitamin C. 3. Tums. 4. Vitamin D. 5. Biaxin. 6. Colace. 7. Pepcid. 8. Fish oil. 9. Heparin. 10. Apresoline. 11. Melatonin. 12. Remeron. 13. MiraLax. 14. Vitamin 6. PHYSICAL EXAMINATION: VITAL SIGNS: Essentially normal. GENERAL: He appears well, alert, oriented. SKIN: No lymphadenopathy. No skin lesions. Peripheral IV access. HEENT: Ocular movements conjugate. Oral cavity normal. Numerous missing teeth. NECK: Supple. LUNGS: Symmetric. Clear breath sounds. Diminished breath sounds in the upper segments. No crackles or wheezing. S1, S2. Regular rate. ABDOMEN: Soft. Not distended or tender. NEUROLOGIC: Quadriparesis as previously noted. LABORATORY DATA: Bronchial washings with 262 WBCs, 112 RBCs, white cell count 6.2, hemoglobin 13, platelets 230 with normal differential. Chemistry is normal. Microbiology with negative direct acid-fast smear. Cytology is pending. ASSESSMENT AND DISCUSSION: Chronic Mycobacterium mucogenicum infection of lungs with excellent response to quinolone/Biaxin combination, but now has developed hemoptysis with air-fluid levels in the right side cavity. Most of the lung pang have improved in the CT scan compared with previous imaging study. The patient probably can be discharged tomorrow back on his regimen and he will have to continue it until September or October of 2019. FU results of BAL cytology, micro. Job ID: [id number] MTDD
[2018-12-01] MEDS ORDERED: Ascorbic Acid 500 mg Chewable Tablet PO SCH (08:00)
[2018-12-01] MEDS ORDERED: Clarithromycin 250 MG TAB PO SCH (09:00)
[2018-12-01] MEDS ORDERED: Polyethylene Glycol 3350 17 GM Packet PO SCH (09:00)
[2018-12-01] MEDS ORDERED: pyridOXINE 50 MG (B6) TAB PO SCH (09:00)
[2018-12-01] MEDS ORDERED: Fish Oil 1,000 MG CAP PO SCH (09:00)
[2018-12-01] MEDS: Heparin 5,000 UNITS/ML VIAL SC SCH ×2 (09:17→15:39)
[2018-12-01] MEDS: Famotidine 20 MG TAB PO SCH (09:17)
[2018-12-01] MEDS: Clarithromycin 250 MG TAB PO SCH (12:00)
[2018-12-01 12:11] VITALS: BP 109/73; TEMP 97.5
--- NOTE | 2018-12-01 16:40 | DIS ---
DATE OF ADMISSION: 11/29/2018 DATE OF DISCHARGE: 12/01/2018 ADMITTING DIAGNOSIS: Hemoptysis with a history of atypical tuberculosis. DISCHARGE DIAGNOSIS: Hemoptysis, resolved with a history of atypical tuberculosis. PROCEDURE PERFORMED: Bronchoscopy. CONSULTANTS ON THE CASE: 1. Dr. Bhupendra Sousa for Infectious Disease. 2. Dr. David Arriola for Pulmonology. HOSPITAL COURSE: The patient has been admitted for hemoptysis, obtained CT of the chest, shows multifocal abnormal parenchymal opacities favoring atypical infections and inflammatory process. Prominent cavitary lesions at each lung apex are present, and on the right, this contains a large air-fluid level. The patient underwent bronchoscopy, and the bronchoscopy cultures were pending. Infectious Disease recommended that as the patient currently being on a standard MAC (Mycobacterium avium complex) treatment, it has been concluded to transfer the patient to outpatient care on the same regimen while the patient could be followed by the Infectious Disease as well as the Pulmonology for the results of the bronchoscopy cultures as well as Gram stains. CONDITION OF THE PATIENT AT THE TIME OF DISCHARGE: Stable. DISCHARGE MEDICATIONS: 1. Acetaminophen 325 mg p.o. at bedtime p.r.n. 2. Vitamin C 500 mg p.o. daily. 3. Fish oil 1000 mg 1 p.o. daily. 4. Vitamin D3 of 1000 units 1 p.o. daily. 5. Melatonin 3 mg daily. 6. Calcium carbonate 500 mg daily. 8. Levofloxacin 500 mg p.o. daily. 9. Pyridoxine 50 mg p.o. daily. Further medications, please refer to reconciliation medication sheet. FOLLOWUP CARE: Follow up with Infectious Disease as well as Pulmonology as scheduled. Follow up with PCP within 1 week. Job ID: [id number] [facility]
[2018-12-04 17:16] LABS: Fungus Stain Final report (.)
== END 2018-12-01 15:30 | disposition home or self-care (01) | DRG 177 ==
LOC: ERS 08:45 → SJJU 13:44
PROVIDERS: ADMIT Internal Medicine; ATTEND Internal Medicine
PROC: 0B9C8ZX Drainage of Right Upper Lung Lobe, Via Natural or Artificial Opening Endoscopic, Diagnostic (ICD-10-PCS; principal; 2018-11-30)
DX: A31.0 Pulmonary mycobacterial infection (principal); R53.2 Functional quadriplegia; Z87.820 Personal history of traumatic brain injury
CPT/HCPCS: 36415; 70491; 71260; 80048; 80053; 85025; 85060; 87070; 87102; 87116; 87205; 87206; 88112; 88305; 89051; J1644; J2405; J2704; Q9966